=== PATIENT | male | born 1970 | race Caucasian/White ===

== ENCOUNTER 2018-09-01 19:39 | Emergency (ER) | payer SELFPAY ==
[2018-09-01 19:44] VITALS: BP 160/97; PULSE 73; RESP 20; TEMP 36.5; O2SAT 100; BMI 38.7
--- NOTE | 2018-09-01 20:04 | RAD_ITS ---
STUDY: X-RAY CHEST REASON FOR EXAM: Male, 48 years old. Cough, hemoptysis. TECHNIQUE: PA and lateral chest. COMPARISON: None. FINDINGS: The lungs are clear and expanded. There is no demonstrated pleural abnormality. There is mild cardiac enlargement. Normal mediastinum and braxton. Normal visualized pulmonary arteries. Normal visualized aortic arch and descending thoracic aorta. Normal visualized thoracic spine. Normal visualized ribs, clavicles, and shoulders. There is no demonstrated abnormality of the visualized soft tissue structures of the upper abdomen. RAD/Chest PA and Lateral IMPRESSION: No acute process. Electronically Signed: Sharon Vicente MD at 20:44 EST Tel , Service support ,
[2018-09-01 20:22] LABS: Absolute Lymphocyte Count 1.76 X10^3/ul (0.83-4.51); Absolute Neutrophil Count 11.5 X10^3/uL (2.0-7.7); Basophil# 0.05 X10^3/uL; Basophil% 0.3 % (0-1); Eosinophil# 0.41 X10^3/uL; Eosinophils% 2.8 % (0-5); Hematocrit 35.5 % (40-54); Hemoglobin 10.9 g/dl (13.0-16.5); Lymphocyte # 1.76 X10^3/ul (4.0); Lymphocyte % 12.1 % (19-41); Mean Corp Hgb Conc 30.7 g/gl (32-36); Mean Corpuscular Hgb 23.5 pg (27.0-32.0); Mean Corpuscular Volume 76.7 fL (80-94); Mean Platelet Vol. 8.8 fl (6.2-12.0); Monocyte% 5.5 % (0-10); Neutrophil % 78.9 % (47-70); POSITIVE COUNT NO; POSITIVE DIFFERENTIAL NO; POSITIVE MORPHOLOGY NO; Platelet Count 424 K/mm3 (150-450); RBC Distribution Width CV 17.7 % (11.6-14.6); RBC Distribution Width SD 47.7 fl (35.1-43.9); Red Blood Count 4.63 M/mm3 (4.6-6.2); White Blood Count 14.6 K/mm3 (4.4-11.0)
[2018-09-01 20:35] LABS: Anion Gap 7 (5-15); BUN 22 mg/dL (7-18); BUN/Creat Ratio 19.3 RATIO (10-20); Calcium,Total 8.1 mg/dL (8.5-10.1); Chloride 106 mmol/L (98-107); Creatinine, Serum 1.14 mg/dL (0.70-1.30); EST Glomerular Filtration Rate 73 mL/min (>60); Est Glom Filt Rate - Afr Amer 88 mL/min (>60); Glucose 114 mg/dL (74-106); Potassium 4.6 mmol/L (3.5-5.1); Sodium Level 139 mmol/L (136-145)
--- NOTE | 2018-09-01 20:49 | ED.VISSUMM ---
- ER Visit Summary Date of Service: 09/01/18 Chief Complaint: Abdominal pain and cough History of Present Illness: The patient is a 48 M who his primary care physician is in [place]. He reports that he has abdominal pain that began approximately 4 weeks ago. He reports that this is only up when he is moving around and describes it as a cramping pain. He denies any pain while he sitting. No nausea, vomiting, or diarrhea. Patient reports that approximately for the past month he has had a cough is productive of white/green sputum. States that this morning when he woke up he brought up a spot of blood with his sputum. He denies any fever or chills. No chest pain or shortness of breath. Physical Examination: Vitals: Stable. Afebrile. General: Well-nourished and well-developed. Head: Normocephalic atraumatic. HEENT: Serous effusion behind his right TM. Left TM is normal. No tonsillar enlargement or exudate. Neck: Supple, no lymphadenopathy. No JVD. Nontender. Cardiovascular: Regular rate and rhythm. No murmurs. Respiratory: No respiratory distress. Clear to auscultation bilaterally. Abdominal: Soft, nontender, nondistended, normal bowel sounds. No guarding, rebound, or peritoneal signs. Back: Nontender. Extremities: Nontender, no edema. Skin: Normal color, no rash. Neurologic: Alert and oriented ?3. Cranial nerves II through XII are intact. Normal strength and sensation. Psych: Normal affect. Test Results: Chest x-ray is shows mild cardiomegaly. No infiltrate. CBC is more for a white count of 14.6 with an H&H of 10.9 35.5, segmented neutrophils 79 lymphocytes of 12. He does not have an old hemoglobin for comparison. Chem-7 is marked for glucose 114, BUN of 22, calcium of 8.1. Emergency Department Course and Treatment: Patient was treated the dose of Zithromax p.o. He is resting comfortably. Treatment Plan: Patient will be discharged the remainder of his Z-Timothy. Instructed to follow-up with Dr. Mcneil, who is next in line for no doc, in 1 week for another exam. Return to the emergency department for any worsening symptoms. Disposition: To home in improved and stable condition. Impression: 1. URI. 2. Abdominal pain, uncertain cause. 3. Anemia. This note was generated with [employer] dictation software. It may contain incorrect words, spelling, and punctuation that were not noted in review of the chart prior to signing ED Disposition - Plan for ED Patient: Disposition: Home or Assisted Living Chief Complaint: General Illness Instructions: ED Upper Resp Infec Abx Tx Prescriptions: Azithromycin [Zithromax] 250 mg PO DAILY #4 tablet Referrals: Nataliia Mcneil MD [STAFF PHYSICIAN] - 5-7 Days
[2018-09-01] MEDS: Azithromycin 250 MG Tablet 500 MG PO (21:16)
[2018-09-01 21:21] VITALS: BP 153/107; PULSE 107; RESP 15; O2SAT 98
== END 2018-09-01 21:23 | disposition home or self-care (01) ==
LOC: ED 20:27
PROVIDERS: Emergency Provider Emergency Medicine
DX: J06.9 Acute upper respiratory infection, unspecified (principal); R10.9 Unspecified abdominal pain; D64.9 Anemia, unspecified; I10 Essential (primary) hypertension; Z79.899 Other long term (current) drug therapy
CPT/HCPCS: 71046; 80048; 85025; 99284; A4216

== ENCOUNTER 2018-09-12 21:37 | Inpatient (IN) | payer SELFPAY ==
[2018-09-12 21:37] VITALS: BP 107/78; PULSE 119; RESP 32; TEMP 36.8; O2SAT 93; BMI 42.3
--- NOTE | 2018-09-12 21:57 | EKG12_ITS ---
Test Reason : SOB Blood Pressure : / mmHG Vent. Rate : 116 BPM Atrial Rate : 277 BPM P-R Int : 000 ms QRS Dur : 084 ms QT Int : 322 ms P-R-T Axes : 070 061 074 degrees QTc Int : 447 ms Normal sinus rhythm Premature ventricular complexes Abnormal ECG Confirmed by JOHNATHON BURKS, ZIA ([id number]), online content editor DAVE ADKINS ([id number]) on 09/15/2018 3:10:18 PM Referred By: GONSALO Confirmed By:ZIA DIEGO MD
--- NOTE | 2018-09-12 21:58 | RAD_ITS ---
STUDY: X-RAY CHEST REASON FOR EXAM: Male, 48 years old. Cough, congestion, fatigue TECHNIQUE: Single AP portable view of the chest. COMPARISON: 09/01/2018 FINDINGS: The lungs are clear and expanded. There is no demonstrated pleural abnormality. Normal size heart. Normal mediastinum and braxton. Normal visualized pulmonary arteries. Normal visualized aortic arch and descending thoracic aorta. Normal visualized thoracic spine. Normal visualized ribs, clavicles, and shoulders. There is no demonstrated abnormality of the visualized soft tissue structures of the upper abdomen. RAD/Chest PA and Lateral IMPRESSION: No acute pulmonary process, no interval change Electronically Signed: Darryl Brambila MD at 23:00 EST , Service support ,
--- NOTE | 2018-09-12 21:59 | ED.VISSUMM ---
- ER Visit Summary Date of Service: 09/12/18 Chief Complaint: Shortness of breath, abdominal pain, and hemoptysis History of Present Illness: The patient is a 48 M who presents with shortness of breath that has been getting worse over the past week. Patient states he feels fatigued and gets short of breath with any exertion. Patient admits to decreased appetite. Patient also admits to some lower abdominal pain. Patient states his pain is worse with ambulation. Patient admits to some insomnia as well. Patient states he was seen here recently and had an x-ray which did not show any pneumonia. Patient states he was told he had bronchitis. Patient states his breathing feels like it is getting worse. Patient states he is coughing up an occasional bloody sputum. Patient denies any fevers or chills. Physical Examination: Vital signs are stable except for tachycardia of 119 and a respiratory rate of 32. Patient is afebrile. Oral mucosa is pink and moist. Neck is supple. Trachea is midline. There is no JVD noted. Heart was regular rate and rhythm. Lungs showed rales and rhonchi in the right base. There is good respiratory effort noted. Abdomen is soft. Bowel sounds are normal. There is some mild lower abdominal tenderness. There is no rebound or guarding noted. Cranial nerves II through XII are intact. There are no focal motor or sensory deficits noted. The remaining physical exam is within normal limits. Test Results: PA and lateral chest x-ray was obtained. There is a right lower lobe infiltrate. This was interpreted by myself. Radiologist did not feel there is any acute interval change compared to previous x-ray. CBC, comprehensive metabolic profile, and troponin were obtained and are pending. Emergency Department Course and Treatment: Patient was given a DuoNeb aerosol here. Patient was started on Rocephin and Zithromax. Case was discussed with the hospitalist. Patient will be admitted to the hospital. Patient understood and was agreeable with the plan. All questions were answered. Disposition: Admit to hospital Impression: Community-acquired pneumonia This note was generated with [employer] dictation software. It may contain incorrect words, spelling, and punctuation that were not noted in review of the chart prior to signing ED Disposition - Plan for ED Patient: Disposition: Acute Care Hospital [facility] Chief Complaint: Abd Pain Diagnosis: Community acquired pneumonia Referrals: [facility] Doctor,Out of [Primary Care Provider] -
--- NOTE | 2018-09-12 22:02 | ED.DCSUM_ITS ---
- ER Visit Summary Date of Service: 09/12/18 Chief Complaint: Shortness of breath, abdominal pain, and hemoptysis History of Present Illness: The patient is a 48 M who presents with shortness of breath that has been getting worse over the past week. Patient states he feels fatigued and gets short of breath with any exertion. Patient admits to decreased appetite. Patient also admits to some lower abdominal pain. Patient states his pain is worse with ambulation. Patient admits to some insomnia as well. Patient states he was seen here recently and had an x-ray which did not show any pneumonia. Patient states he was told he had bronchitis. Patient states his breathing feels like it is getting worse. Patient states he is coughing up an occasional bloody sputum. Patient denies any fevers or chills. Physical Examination: Vital signs are stable except for tachycardia of 119 and a respiratory rate of 32. Patient is afebrile. Oral mucosa is pink and moist. Neck is supple. Trachea is midline. There is no JVD noted. Heart was regular rate and rhythm. Lungs showed rales and rhonchi in the right base. There is good respiratory effort noted. Abdomen is soft. Bowel sounds are normal. There is some mild lower abdominal tenderness. There is no rebound or guarding noted. Cranial nerves II through XII are intact. There are no focal motor or sensory deficits noted. The remaining physical exam is within normal limits. Test Results: PA and lateral chest x-ray was obtained. There is a right lower lobe infiltrate. This was interpreted by myself. Radiologist did not feel there is any acute interval change compared to previous x-ray. CBC, comprehensive metabolic profile, and troponin were obtained and are pending. Emergency Department Course and Treatment: Patient was given a DuoNeb aerosol here. Patient was started on Rocephin and Zithromax. Case was discussed with the hospitalist. Patient will be admitted to the hospital. Patient understood and was agreeable with the plan. All questions were answered. Disposition: Admit to hospital Impression: Community-acquired pneumonia This note was generated with [employer] dictation software. It may contain incorrect words, spelling, and punctuation that were not noted in review of the chart prior to signing ED Disposition - Plan for ED Patient: Disposition: Acute Care Hospital [facility] [place] Chief Complaint: Abd Pain Diagnosis: Community acquired pneumonia Referrals: [facility] Doctor,Out of [Primary Care Provider] -
[2018-09-12 22:13] VITALS: PULSE 115; RESP 34
[2018-09-12] MEDS: Ipratropium/Albuterol Sulfate 3 ML AMPUL.NEB INHALATION (22:13)
--- NOTE | 2018-09-12 22:18 | ED.RN ---
NO OLD EKGS IN MUSE
[2018-09-12 22:57] VITALS: BP 120/81; PULSE 95; RESP 34; TEMP 36.8; O2SAT 94
[2018-09-12 23:01] VITALS: BP 120/81; PULSE 95; RESP 34; TEMP 37.2
--- NOTE | 2018-09-12 23:07 | ED.RN ---
pt coughed and was seen coughing up clear sputum
--- NOTE | 2018-09-12 23:57 | PCM.HP.STD ---
Problem List (1) Sepsis Status: Acute History of Present Illness Date of Admission: 09/12/18 Chief Complaint: Hemoptysis The patient is a 48 year old M with a significant history of former smoker and hypertension who presents with hemoptysis that started about 11 days ago. Associated with symptoms is shortness of breath; fatigue; chills; hot flashes; paroxysmal nocturnal dyspnea; orthopnea; and lightheadedness. 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 Patient was evaluated at our emergency department about 11 dose ago and was diagnosed with upper URI; abdominal pain and anemia. He was discharged on Zithromax p.o. Patient is anxious and is difficult to take accurate history from him. Past Medical History Medical History: Medical History (Last Updated 09/13/18 @ 01:09 by Mitul Rubin MD) Hypertension I10 Allergies lisinopril Allergy (Verified 09/01/18 19:43) Angioedema Home Medications: Ambulatory Orders Medication Instructions Recorded NK 09/12/18 Surgical History: no surgical history Lives: Alone Smoking Status: Former smoker Alcohol: None - *Family History Maternal Family History: Family History (Last Updated 09/13/18 @ 01:10 by Mitul Rubin MD) Mother Diabetes Father Lung disease Review of Systems Constitutional: Reports: Anorexia, Chills, Malaise, Fatigue. Denies: Fever, Weight Change HEENT: Denies: Head Aches, Sinus Congestion, Sinus Drainage Cardiovascular: Reports: Edema - Bilateral legs. Denies: Chest Pain, Palpitations Respiratory: Reports: Cough, Shortness of Breath, Sputum production Gastrointestinal: Reports: Nausea. Denies: Abdominal Pain, Vomiting Genitourinary: Denies: Dysuria Musculoskeletal: Denies: Joint Pain, Joint Tenderness Skin: Denies: Rash, Wounds Neurological: Denies: Numbness, Tingling, Focal weakness Psychiatric: Reports: Anxiety. Denies: Depression, Homicidal Ideations, Suicidal Ideations Hematologic/ Lymphatic: Denies: Easy Bruising, Easy Bleeding VTE Information - Inpt Only VTE Present on Admission: No VTE Mechan Device Prophylaxis: None VTE Pharm Prophylaxis ordered?: Yes Patient Problems: Active and Suspected Problems Community acquired pneumonia (Acute) Sepsis (Acute) - Physical Exam General: Alert, Oriented x3, Cooperative HEENT: Atraumatic, PERRLA, EOMI, Normocephalic Neck: Supple, No JVD, Negative Carotid Bruits Lungs: Clear to auscultation, Normal air movement, Short of Breath, Tachypneic, Using Accessory Muscles Cardiovascular: No murmurs, Tachycardic Abdomen: Bowel Sounds Present, Soft, Non Tender Extremities: Capillary Refill Less than 3 Seconds, Edema - Bilateral legs and feet Skin: No rashes, No breakdown Musculoskeletal: No Tenderness to Palpation of Joints or Extremities Neurological: Neuro grossly intact Psych/Mental Status: Normal Affect, Appropriate Vital Signs Temp Pulse Resp BP Pulse Ox 98.9 F 95 34 H 120/81 H 94 09/12/18 23:01 09/12/18 23:01 09/12/18 23:01 09/12/18 23:01 09/12/18 22:57 Oxygen Delivery Method Room Air Weight: 122.47 kg Body Mass Index (BMI) 42.3 Laboratory Tests Past 24 Hrs 09/12/18 09/12/18 23:50 23:50 WBC Pending RBC Pending Hgb Pending Hct Pending MCV Pending MCH Pending MCHC Pending RDW Pending RDW Differential Pending Plt Count Pending Neut % (Auto) Pending Absolute Neuts (auto) Pending Total Counted Pending Sodium Pending Potassium Pending Chloride Pending Carbon Dioxide Pending Anion Gap Pending BUN Pending Creatinine Pending Est GFR (MDRD) Af Amer Pending Est GFR (MDRD) Non-Af Pending BUN/Creatinine Ratio Pending Glucose Pending Calcium Pending Troponin I Pending Assessment/Plan All Active Problems Community acquired pneumonia (Acute) Sepsis (Acute) The patient is a 48 year old M with a significant history of former smoker and hypertension who presents with hemoptysis shortness of breath; fatigue; chills; hot flashes; paroxysmal nocturnal dyspnea; orthopnea; and lightheadedness after being discharged from the hospital 11 days ago he was given a Z-Timothy to treat your URI; and meeting SIRS criteria with likely source of infection as pneumonia consistent with sepsis secondary to community-acquired pneumonia. Secondary community acquired pneumonia. X-ray as interpreted from the emergency department doctor shows lower third opacity in the anterior view and in lateral view. I agree with the interpretation. Patient with Sirs criteria: Tachycardia (heart rate 118-119); tachypnea (respiratory rate 29-34) With radiographic evidence of infiltrate and Sirs criteria patient was diagnosed with sepsis secondary to community-acquired pneumonia. Lactic acid ordered Oxygen as needed Blood culture ordered Respiratory Gram stain and culture ordered Antibiotics: Ceftriaxone and azithromycin was ordered from the emergency department. However there was difficulty in placing a peripheral line with ultrasound at emergency department. Emergency department doctor will talk to patient and likely start a central line. We will continue ceftriaxone and azithromycin. We will hold off IV hydration as patient is not hemodynamically compromised and does not appear to be in severe sepsis at this point. He reports bilateral leg swelling, rule out congestive heart failure at this time. DuoNeb scheduled. Albuterol as needed Legionella antigen screen and Strep antigen ordered Prednisone x1 due to severity of his condition. Evaluate for further need of steroids. Due to his history of driving a van and a severe tachycardia and shortness of breath will order a CTPA to rule out PE. Due to orthopnea, PND and bilateral leg swelling will order echocardiogram to rule out heart failure. Hypertension On admission blood pressure was not within goal. Patient reports that in the past he was taking lisinopril but he had elevated lisinopril for which lisinopril was discontinued. Patient tachycardia we will not order hydralazine at this time. Patient with dyspnea will order beta-blockers at this time. Clonidine as needed ordered. Anxiety Patient's appears very anxious. Was given lorazepam at emergency department. Clinical monitoring. If patient continued to be anxious consider further lorazepam. DVT prophylaxis Subcutaneous Lovenox. Code Visit Inpatient E&M: 53338 Init Hosp L3
[2018-09-13] VITALS (41 sets, daily range): BP systolic 110–195; BP diastolic 69–110; PULSE 75–121; RESP 22–44; TEMP 36.3–37.7; O2SAT 92–100; BMI 42.0; BMI 42.1
[2018-09-13 00:13] LABS: Anion Gap 11 (5-15); BUN 29 mg/dL (7-18); BUN/Creat Ratio 23.6 RATIO (10-20); Calcium,Total 8.1 mg/dL (8.5-10.1); Chloride 102 mmol/L (98-107); Creatinine, Serum 1.23 mg/dL (0.70-1.30); EST Glomerular Filtration Rate 67 mL/min (>60); Est Glom Filt Rate - Afr Amer 81 mL/min (>60); Estimated Creatinine Clearance 68.67 ml/min; Glucose 111 mg/dL (74-106); Potassium 5.3 mmol/L (3.5-5.1); Sodium Level 135 mmol/L (136-145)
[2018-09-13] MEDS: LORazepam 1 MG Tablet PO (00:32)
--- NOTE | 2018-09-13 00:53 | ECHOD_ITS ---
Reason For Study: Dyspnea/SOB Procedure This was a 2D Doppler, Color Flow transthoracic echocardiogram. Exam performed portable in patient room. Left Ventricle Moderately dilated left ventricle. Severe global left ventricular systolic dysfunction. The estimated ejection fraction is 15 %. Diastolic function is indeterminate. [place] : Akinetic. Right Ventricle Normal RV size. Normal systolic function. Atria The left atrium is severely enlarged. Normal right atrium. Mitral Valve Normal mitral valve. Tricuspid Valve Normal tricuspid valve. Mild to moderate (1-2+) tricuspid valve insufficiency. Pulmonary artery systolic pressure is 52 mmHg. Moderate pulmonary hypertension. Aortic Valve The aortic valve is not well visualized. Pulmonic Valve The pulmonic valve is not well visualized. Great Vessels Normal aortic root. The pulmonary artery is normal size. Normal inferior vena cava. Pericardium/Pleural No pericardial effusion. MMode/2D Measurements & Calculations LVIDd: 5.9 cm IVSd: 1.5 cm Ao root diam: 3.6 cm LVIDs: 5.1 cm LVPWd: 1.3 cm LA dimension: 5.3 cm FS: 13.2 % LAV(MOD-bp): 81.1 ml LA A4 area: 27.4 cm2 LAV(MOD-bp) Indexed: 35.4 ml/m2 LAV(MOD-sp2): 63.2 ml LAV(MOD-sp4): 93.4 ml Doppler Measurements & Calculations MV E max layla: 76.8 cm/sec Ao V2 max: 105.2 cm/sec LV V1 max: 81.7 cm/sec Ao max P.4 mmHg LV V1 max P.7 mmHg MR max layla: 480.1 cm/sec PA V2 max: 71.3 cm/sec TR max layla: 343.4 cm/sec MR max P.2 mmHg TR max P.2 mmHg MR mean layla: 392.4 cm/sec MR mean P.2 mmHg MR VTI: 140.3 cm Interpretation Summary Moderately dilated left ventricle. Severe global left ventricular systolic dysfunction. The estimated ejection fraction is 15 %. Diastolic function is indeterminate. Pulmonary artery systolic pressure is 52 mmHg. Moderate pulmonary hypertension. Large thrombus measuring 3.1cm by 1.5cm at apex. Ordering Physician: Mitul Rubin Performed By: Chato Agee RCS
--- NOTE | 2018-09-13 00:53 | CT_ITS ---
STUDY: CTA CHEST REASON FOR EXAM: Male, 48 years old. Shortness of breath. Cough with hemoptysis. RADIATION DOSAGE (If Supplied By Facility): CTDIvol = ( 27.53 ) mGy, DLP = ( 737.42 ) mGycm TECHNIQUE: The examination was performed with the intravenous administration of 100ML ml of Isovue 370 contrast material. Post-processing of the angiographic images was performed, with multiplanar reformation, but without 3D reconstruction. Individualized dose optimization techniques were used for this CT. COMPARISON: Chest x-ray 09/12/2018. FINDINGS: Normal enhancement of the main pulmonary artery and right and left pulmonary arteries. Normal enhancement of the bilateral peripheral pulmonary arteries. There is a large pulmonary embolism in the right inferior pulmonary artery extending into right middle lobe and right lower lobe pulmonary arterial branches, with substantial coronary arterial occlusion in the right lower lobe. There are smaller pulmonary emboli in the left lower lobe and bilateral upper lobes. There is mild reflux of contrast enhanced blood into the inferior vena cava, with minimal extension into hepatic veins, suggesting that there is at least mild right ventricular strain. Normal thoracic aorta and visualized great vessels. There is no demonstrated aortic dissection. The heart is mildly enlarged. There are coronary artery calcifications. There is no demonstrated pericardial effusion. There are mildly enlarged subcarinal mediastinal lymph nodes and right hilar lymph nodes. Normal visualized trachea and bronchi. The lungs are generally well expanded. There is a dense pulmonary airspace infiltrate in the right lower lobe. Given the presence of large pulmonary embolism within the right lower lobe, this may represent infarction. Pneumonia is not excluded, but is thought to be less likely. There are smaller areas of atelectasis and/or infiltration in the left lower lobe and right middle lobe. There is a calcified granuloma in the right upper lobe. Normal pleura. Normal chest wall structures. There are degenerative changes of thoracic spine. There is mild to moderate ascites within the visualized upper abdomen. CT/Chest WITH Contrast IMPRESSION: Pulmonary emboli in bilateral lower lobes, right middle lobe, and bilateral upper lobes. Largest embolus is in the right inferior pulmonary artery with associated occlusion of right lower lobe pulmonary arterial branches. There is evidence for least mild right ventricular strain. Right lower lobe pulmonary consolidation, suspicious for pulmonary infarction, or less likely pneumonia. Cardiomegaly. Coronary artery atherosclerosis. Mild mediastinal and right hilar lymphadenopathy. Old granulomatous disease. Ascites within visualized upper abdomen. N.B. : The above information has been verbally conveyed by Cem Jefferson MD to BRANT SIMS MD, on 09/13/2018 03:00:13 (ET). Electronically Signed: Cem Jefferson MD at 2:13 EST , Service support ,
[2018-09-13] MEDS: Ceftriaxone 1 GM/50 ML BAG IV (00:54)
[2018-09-13 01:03] LABS: Absolute Lymphocyte Count 1.53 X10^3/ul (0.83-4.51); Basophil# 0.02 X10^3/uL; Basophil% 0.1 % (0-1); Hematocrit 33.4 % (40-54); Hemoglobin 10.2 g/dl (13.0-16.5); Lymphocyte # 1.53 X10^3/ul (4.0); Lymphocyte % 7.2 % (19-41); Mean Corp Hgb Conc 30.5 g/gl (32-36); Mean Corpuscular Hgb 22.5 pg (27.0-32.0); Mean Corpuscular Volume 73.6 fL (80-94); Mean Platelet Vol. 9.2 fl (6.2-12.0); Monocyte# 1.56 X10^3/uL; Monocyte% 7.4 % (0-10); Neutrophil # 17.99 X10^3/uL (2.7-7.7); Neutrophil % 84.8 % (47-70); Platelet Count 353 K/mm3 (150-450); RBC Distribution Width CV 17.5 % (11.6-14.6); RBC Distribution Width SD 47.2 fl (35.1-43.9); Red Blood Count 4.54 M/mm3 (4.6-6.2); White Blood Count 21.2 K/mm3 (4.4-11.0)
[2018-09-13 01:07] LABS: Absolute Nucleated RBC Count 0.12 10^3/uL (0-5); Differential Indicated SCAN CRITERIA MET; NRBC Flagged by Analyzer 0.6 % (0-5); POSITIVE COUNT NO; POSITIVE DIFFERENTIAL YES; POSITIVE MORPHOLOGY YES
[2018-09-13 01:32] LABS: Lactic Acid 2.3 mmol/L (0.4-2.0)
[2018-09-13] MEDS: predniSONE 20 MG Tablet 40 MG PO (02:27)
--- NOTE | 2018-09-13 03:04 | VDLE_ITS ---
Reason For Study: PULM EMB RIGHT LEFT GSV is normal. GSV is normal. CFV is compressible, spontaneous, phasic, CFV is compressible, spontaneous, phasic, competent and demonstrates normal competent, and demonstrates normal augmentation. augmentation. FV is compressible, spontaneous, phasic, FV is compressible, spontaneous, phasic, competent and demonstrates normal competent and demonstrates normal augmentation. augmentation. Rt POP V is DILATED and partially POP V is compressible, spontaneous, phasic, compressible with intraluminal echoes and competent and demonstrates normal partial color flow doppler. augmentation. RT T/P Trunk is compressible. T/P Trunk is compressible. RT Gastroc V are DILATED and NONCOMPRESSIBLE. PTV is compressible. RT PTV is compressible. LT PerV is compressible. RT PeroV appear DILATED and NONCOMPRESSIBLE and do not fill with color. Calf Veins were difficult to visualize due to edema. Procedure Exam performed portable in patient room. The study was technically difficult. A preliminary report was called and/or faxed to PCU. Interpretation Summary Acute deep vein thrombosis is noted in the right popliteal vein. Acute deep vein thrombosis is noted in the right gastrocnemius vein. Acute deep vein thrombosis is noted in the right peroneal vein. The remainder of the right lower extremity deep venous system is patent and compressible. The right common femoral vein and femoral vein are competent. Deep veins of the left lower extremity are patent and compressible segmentally. There is no evidence of left lower extremity deep vein thrombosis. Valvular competence appears intact within the proximal deep venous system on the left . The greater saphenous veins appear bilaterally patent and compressible segmentally. Ordering Physician: Mtiul Rubin Performed By: Adriana Wharton, ANGELCS, RVT
--- NOTE | 2018-09-13 03:06 | EKG12_ITS ---
Test Reason : Blood Pressure : / mmHG Vent. Rate : 120 BPM Atrial Rate : 120 BPM P-R Int : 166 ms QRS Dur : 080 ms QT Int : 324 ms P-R-T Axes : 053 033 064 degrees QTc Int : 457 ms Sinus tachycardia with occasional Premature ventricular complexes Nonspecific T wave abnormality Abnormal ECG When compared with ECG of 12-SEP-2018 22:20, MANUAL COMPARISON REQUIRED, DATA IS UNCONFIRMED Confirmed by JOHNATHON BURKS, ZIA ([id number]), society editor DAVE ADKINS ([id number]) on 09/17/2018 2:17:09 PM Referred By: LEVI Confirmed By:ZIA DIEGO MD
[2018-09-13 04:04] LABS: Absolute Lymphocyte Count 1.44 X10^3/ul (0.83-4.51); Absolute Neutrophil Count 17.1 X10^3/uL (2.0-7.7); Basophil# 0.01 X10^3/uL; Basophil% 0.1 % (0-1); Eosinophil# 0.01 X10^3/uL; Eosinophils% 0.1 % (0-5); Hematocrit 31.7 % (40-54); Hemoglobin 9.7 g/dl (13.0-16.5); Lymphocyte # 1.44 X10^3/ul (4.0); Lymphocyte % 7.3 % (19-41); Mean Corp Hgb Conc 30.6 g/gl (32-36); Mean Corpuscular Hgb 22.6 pg (27.0-32.0); Mean Corpuscular Volume 73.7 fL (80-94); Mean Platelet Vol. 8.8 fl (6.2-12.0); Monocyte# 0.99 X10^3/uL; Neutrophil # 17.14 X10^3/uL (2.7-7.7); Neutrophil % 87.2 % (47-70); Platelet Count 330 K/mm3 (150-450); RBC Distribution Width CV 17.4 % (11.6-14.6); RBC Distribution Width SD 46.7 fl (35.1-43.9); White Blood Count 19.7 K/mm3 (4.4-11.0)
[2018-09-13 04:05] LABS: Differential Indicated SCAN CRITERIA MET; POSITIVE COUNT NO; POSITIVE DIFFERENTIAL NO; POSITIVE MORPHOLOGY YES
[2018-09-13 04:09] LABS: Anion Gap 12 (5-15); BUN 30 mg/dL (7-18); BUN/Creat Ratio 22.4 RATIO (10-20); Calcium,Total 7.9 mg/dL (8.5-10.1); Chloride 102 mmol/L (98-107); Creatinine, Serum 1.34 mg/dL (0.70-1.30); EST Glomerular Filtration Rate 61 mL/min (>60); Est Glom Filt Rate - Afr Amer 73 mL/min (>60); Estimated Creatinine Clearance 65.22 ml/min; Glucose 138 mg/dL (74-106); Sodium Level 136 mmol/L (136-145)
[2018-09-13] MEDS: Heparin Injection (Vial) 5,000 UNIT/ML VIAL 9500 UNIT IV (04:10)
[2018-09-13] MEDS: HEPARIN/D5w 25,000 UNITS 25,000 UNITS/250 ML IV.SOLN. 16 UNITS IV ×2 (04:11→18:31)
[2018-09-13 04:31] LABS: Anisocytosis 1+; Differential Comment SCAN; Hypochromasia 1+; Microcytosis 1+; Polychromasia 1+
[2018-09-13 04:45] LABS: Magnesium 2.4 mg/dL (1.6-2.6)
[2018-09-13 04:55] LABS: Reflex Lactate? Y
[2018-09-13 06:00] LABS: Lactic Acid 3.3 mmol/L (0.4-2.0)
[2018-09-13] MEDS: 0.9% Normal Saline 1,000 ML 75 ML IV (06:44)
[2018-09-13] MEDS: Ipratropium/Albuterol Sulfate 3 ML AMPUL.NEB INHALATION ×3 (07:12→20:38)
--- NOTE | 2018-09-13 07:16 | CON.PCM_ITS ---
Reason for Consult Date of Consultation: 09/13/18 Reason for Consultation: Submassive pulmonary embolism History of Present Illness: The patient is a 48-year-old male, with a history as outlined below, who presented to the emergency department on September 12 with complaints of progressive dyspnea, abdominal pain and hemoptysis. The patient reports having been evaluated in the emergency department for similar complaints on September 01. The presumptive diagnosis at the time of his ED workup was that for a URI, for which the patient was treated with a Z-Timothy. The patient denies a smoking history. He additionally denies ever having been diagnosed with a lower extremity clot or PE previously. He does report recent immobility but denies a personal or family history of hypercoagulable state. Upon arrival to the emergency department, the patient was noted to be afebrile, tachycardic and tachypneic. Laboratory evaluation revealed elevated white blood cell count to 20,000. There was evidence of microcytic anemia. Chemistry profile revealed a mildly elevated potassium to 5.3. Serum lactate was mildly elevated to 2.3. Troponin was elevated to 0.087. BNP was elevated to 1621. A CTA chest was obtained which revealed a large pulmonary embolism in the right inferior pulmonary artery extending into the right middle lobe and right lower lobe pulmonary arterial branches. Smaller pulmonary emboli were noted in the left lower lobe and bilateral upper lobes. There was radiographic evidence of possible right ventricular strain along with a dense pulmonary airspace infiltrate in the right lower lobe, likely suggestive of pulmonary infarction. The patient received supplemental IV fluids and was started on antibiotics. In addition, he was initiated on a heparin drip and subsequently admitted to the medical surgical floor. Overnight, the patient remained tachypneic with intermittent episodes of hemoptysis. Past Medical History Medical History: Medical History (Last Updated 09/13/18 @ 01:09 by Mitul Sims MD) Hypertension I10 Allergies lisinopril Allergy (Verified 09/01/18 19:43) Angioedema Home Medications: Ambulatory Orders Medication Instructions Recorded NK 09/12/18 Surgical History: no surgical history Lives: Alone Smoking Status: Former smoker Alcohol: None - *Family History Maternal Family History: Family History (Last Updated 09/13/18 @ 01:10 by Mitul Sims MD) Mother Diabetes Father Lung disease Review of Systems Constitutional: Reports: Weakness. Denies: Chills, Fever Eyes: Denies: Blurred vision, Double vision HEENT: Denies: Head Aches, Sinus Congestion, Sinus Drainage Cardiovascular: Reports: Edema. Denies: Chest Pain, Palpitations Respiratory: Reports: Cough, Hemoptysis, Shortness of Breath Gastrointestinal: Reports: Abdominal Pain Genitourinary: Denies: Dysuria Musculoskeletal: Denies: Joint Pain, Joint Tenderness Skin: Denies: Rash, Wounds Neurological: Denies: Numbness, Tingling, Focal weakness Psychiatric: Denies: Anxiety, Depression, Homicidal Ideations, Suicidal Ideations Hematologic/ Lymphatic: Reports: Anemia Patient Problems: Active and Suspected Problems (Last Updated 09/13/18 @ 01:09 by Mitul Sims MD) Community acquired pneumonia (Acute) Sepsis (Acute) Objective: The patient's most recent lab work, culture data and imaging studies have all been personally reviewed. Surface echocardiogram completed on September 13 revealed severe global LV systolic dysfunction with an ejection fraction of 15%. Normal RV size and function was noted. Pulmonary artery systolic pressure was estimated to be 52 mmHg. - Physical Exam General: Alert, Cooperative, - HEENT: Atraumatic, PERRLA, Normocephalic Oral: No Gingival or Mucosal Lesions/ Ulcerations Neck: Supple, No Nodes, Trachea Midline Lungs: No rhonchi, No wheeze, No rales, Diminished, Short of Breath, Tachypneic Cardiovascular: Normal S1, Normal S2, No murmurs, Tachycardic Abdomen: Bowel Sounds Present, Soft, Non Tender, Non-Distended Extremities: No clubbing, No cyanosis, Edema Skin: No breakdown Musculoskeletal: No Tenderness to Palpation of Joints or Extremities, No Muscle Wasting Lymphatic: No Cervical, Supraclavicular, or Inguinal Adenopathy Neurological: Cranial nerves II-XII grossly intact, Neuro grossly intact Psych/Mental Status: Anxious Vital Signs Temp Pulse Resp BP Pulse Ox 37.7 C H 115 H 32 H 121/84 H 95 09/13/18 06:57 09/13/18 06:57 09/13/18 06:57 09/13/18 06:57 09/13/18 06:57 Oxygen Flow Rate (L/min) 4 Oxygen Delivery Method Nasal Cannula Weight: 276 lb 10.882 oz Body Mass Index (BMI) 42.0 Intake and Output for Last 24 Hours 09/11/18 09/12/18 09/13/18 23:59 23:59 23:59 Intake Total 1039.1 / 1039.1 Output Total 150 / 150 Balance 889.1 / 889.1 Microbiology Past 72 Hours 09/13/18 03:30 Legionella Antigen - Final Urine, Clean Catch 09/13/18 03:30 Streptococcus pneumoniae Antigen (M - Final Urine, Clean Catch Laboratory Tests Past 24 Hrs 09/12/18 09/12/18 09/13/18 23:50 23:50 00:45 WBC Cancelled 21.2 H Corrected WBC Cancelled RBC Cancelled 4.54 L Hgb Cancelled 10.2 L Hct Cancelled 33.4 L MCV Cancelled 73.6 L MCH Cancelled 22.5 L MCHC Cancelled 30.5 L RDW Cancelled 17.5 H RDW Differential Cancelled 47.2 H Plt Count Cancelled 353 MPV Cancelled 9.2 Immature Gran % (Auto) Cancelled 0.500 Neut % (Auto) Cancelled 84.8 H Lymph % (Auto) Cancelled 7.2 L [place] % (Auto) Cancelled 7.4 Eos % (Auto) Cancelled 0.0 Baso % (Auto) Cancelled 0.1 Immature Gran # (Auto) Cancelled Absolute Neuts (auto) Cancelled 18.0 H Absolute Lymphs (auto) Cancelled 1.53 Absolute Monos (auto) Cancelled Total Counted Cancelled Not Reportable Neutrophils % (Manual) Cancelled Band Neutrophils % Cancelled Lymphocytes % (Manual) Cancelled Monocytes % (Manual) Cancelled Eosinophils % (Manual) Cancelled Basophils % (Manual) Cancelled Metamyelocytes % Cancelled Myelocytes % Cancelled Promyelocytes % Cancelled Blast Cells % Cancelled Plasma Cell % (Manual) Cancelled Other Cells % Cancelled Nucleated RBC % 0.6 Lymphocytes # Cancelled Nucleated RBCs/100 WBC Cancelled Differential Comment Cancelled Diff Path Review Cancelled May foll Hypersegmented Neuts Cancelled Atypical Lymphocytes Cancelled Reactive Lymphocytes Cancelled Smudge Cells Cancelled Eosinophilia # Cancelled Basophilia # Cancelled Toxic Granulation Cancelled Dohle Bodies Cancelled Miguel Angel Rods Cancelled Platelet Estimate Cancelled Plt Morphology Comment Cancelled RBC Morphology Cancelled Polychromasia Cancelled Hypochromasia Cancelled Poikilocytosis Cancelled Basophilic Stippling Cancelled Anisocytosis Cancelled Microcytosis Cancelled Macrocytosis Cancelled Spherocytes Cancelled Sickle Cells Cancelled Target Cells Cancelled Tear Drop Cells Cancelled Ovalocytes Cancelled Stomatocytes Cancelled [place] Bodies Cancelled Alessandra Cells Cancelled Bite Cells Cancelled Acanthocytes (Spur) Cancelled Rouleaux Cancelled Schistocytes Cancelled Absolute Retic 0.12 PT INR APTT Sodium 135 L Potassium 5.3 H Chloride 102 Carbon Dioxide 22.0 Anion Gap 11 BUN 29 H Creatinine 1.23 Estim Creat Clear Calc 68.67 Est GFR (MDRD) Af Amer 81 Est GFR (MDRD) Non-Af 67 BUN/Creatinine Ratio 23.6 H Glucose 111 H Lactic Acid Calcium 8.1 L Magnesium Troponin I 0.087 H B-Natriuretic Peptide Mycoplasma pneumon IgG Mycoplasma pneumon IgM 09/13/18 09/13/18 09/13/18 00:45 02:15 03:46 WBC 19.7 H Corrected WBC RBC 4.30 L Hgb 9.7 L Hct 31.7 L MCV 73.7 L MCH 22.6 L MCHC 30.6 L RDW 17.4 H RDW Differential 46.7 H Plt Count 330 MPV 8.8 Immature Gran % (Auto) 0.300 Neut % (Auto) 87.2 H Lymph % (Auto) 7.3 L [place] % (Auto) 5.0 Eos % (Auto) 0.1 Baso % (Auto) 0.1 Immature Gran # (Auto) Absolute Neuts (auto) 17.1 H Absolute Lymphs (auto) 1.44 Absolute Monos (auto) Total Counted Not Reportable Neutrophils % (Manual) Band Neutrophils % Lymphocytes % (Manual) Monocytes % (Manual) Eosinophils % (Manual) Basophils % (Manual) Metamyelocytes % Myelocytes % Promyelocytes % Blast Cells % Plasma Cell % (Manual) Other Cells % Nucleated RBC % Lymphocytes # Nucleated RBCs/100 WBC Differential Comment SCAN Diff Path Review Hypersegmented Neuts Atypical Lymphocytes Reactive Lymphocytes Smudge Cells Eosinophilia # Basophilia # Toxic Granulation Dohle Bodies Miguel Angel Rods Platelet Estimate Plt Morphology Comment RBC Morphology Polychromasia 1+ Hypochromasia 1+ Poikilocytosis Basophilic Stippling Anisocytosis 1+ Microcytosis 1+ Macrocytosis Spherocytes Sickle Cells Target Cells Tear Drop Cells Ovalocytes Stomatocytes [place] Bodies [place] Cells Bite Cells Acanthocytes (Spur) Rouleaux Schistocytes Absolute Retic PT INR APTT Sodium Potassium Chloride Carbon Dioxide Anion Gap BUN Creatinine Estim Creat Clear Calc Est GFR (MDRD) Af Amer Est GFR (MDRD) Non-Af BUN/Creatinine Ratio Glucose Lactic Acid 2.3 H Calcium Magnesium Troponin I B-Natriuretic Peptide Mycoplasma pneumon IgG Pending Mycoplasma pneumon IgM Pending 09/13/18 09/13/18 09/13/18 03:46 03:46 03:46 WBC Corrected WBC RBC Hgb Hct MCV MCH MCHC RDW RDW Differential Plt Count MPV Immature Gran % (Auto) Neut % (Auto) Lymph % (Auto) [place] % (Auto) Eos % (Auto) Baso % (Auto) Immature Gran # (Auto) Absolute Neuts (auto) Absolute Lymphs (auto) Absolute Monos (auto) Total Counted Neutrophils % (Manual) Band Neutrophils % Lymphocytes % (Manual) Monocytes % (Manual) Eosinophils % (Manual) Basophils % (Manual) Metamyelocytes % Myelocytes % Promyelocytes % Blast Cells % Plasma Cell % (Manual) Other Cells % Nucleated RBC % Lymphocytes # Nucleated RBCs/100 WBC Differential Comment Diff Path Review Hypersegmented Neuts Atypical Lymphocytes Reactive Lymphocytes Smudge Cells Eosinophilia # Basophilia # Toxic Granulation Dohle Bodies Miguel Angel Rods Platelet Estimate Plt Morphology Comment RBC Morphology Polychromasia Hypochromasia Poikilocytosis Basophilic Stippling Anisocytosis Microcytosis Macrocytosis Spherocytes Sickle Cells Target Cells Tear Drop Cells Ovalocytes Stomatocytes [place] Bodies [place] Cells Bite Cells Acanthocytes (Spur) Rouleaux Schistocytes Absolute Retic PT 23.0 H INR 2.0 APTT 32.0 Sodium 136 Potassium 5.0 Chloride 102 Carbon Dioxide 22.0 Anion Gap 12 BUN 30 H Creatinine 1.34 H Estim Creat Clear Calc 65.22 Est GFR (MDRD) Af Amer 73 Est GFR (MDRD) Non-Af 61 BUN/Creatinine Ratio 22.4 H Glucose 138 H Lactic Acid Calcium 7.9 L Magnesium 2.4 Troponin I B-Natriuretic Peptide Mycoplasma pneumon IgG Mycoplasma pneumon IgM 09/13/18 09/13/18 03:46 05:18 WBC Corrected WBC RBC Hgb Hct MCV MCH MCHC RDW RDW Differential Plt Count MPV Immature Gran % (Auto) Neut % (Auto) Lymph % (Auto) [place] % (Auto) Eos % (Auto) Baso % (Auto) Immature Gran # (Auto) Absolute Neuts (auto) Absolute Lymphs (auto) Absolute Monos (auto) Total Counted Neutrophils % (Manual) Band Neutrophils % Lymphocytes % (Manual) Monocytes % (Manual) Eosinophils % (Manual) Basophils % (Manual) Metamyelocytes % Myelocytes % Promyelocytes % Blast Cells % Plasma Cell % (Manual) Other Cells % Nucleated RBC % Lymphocytes # Nucleated RBCs/100 WBC Differential Comment Diff Path Review Hypersegmented Neuts Atypical Lymphocytes Reactive Lymphocytes Smudge Cells Eosinophilia # Basophilia # Toxic Granulation Dohle Bodies Miguel Angel Rods Platelet Estimate Plt Morphology Comment RBC Morphology Polychromasia Hypochromasia Poikilocytosis Basophilic Stippling Anisocytosis Microcytosis Macrocytosis Spherocytes Sickle Cells Target Cells Tear Drop Cells Ovalocytes Stomatocytes [place] Bodies [place] Cells Bite Cells Acanthocytes (Spur) Rouleaux Schistocytes Absolute Retic PT INR APTT Sodium Potassium Chloride Carbon Dioxide Anion Gap BUN Creatinine Estim Creat Clear Calc Est GFR (MDRD) Af Amer Est GFR (MDRD) Non-Af BUN/Creatinine Ratio Glucose Lactic Acid 3.3 H Calcium Magnesium Troponin I B-Natriuretic Peptide Pending Mycoplasma pneumon IgG Mycoplasma pneumon IgM Clinical Impression(s) from Imaging Studies Chest X-Ray 09/12/18 21:58 IMPRESSION: No acute pulmonary process, no interval change Electronically Signed: Darryl Brambila MD at 23:00 EST , Service support , Chest CT 09/13/18 00:53 IMPRESSION: Pulmonary emboli in bilateral lower lobes, right middle lobe, and bilateral upper lobes. Largest embolus is in the right inferior pulmonary artery with associated occlusion of right lower lobe pulmonary arterial branches. There is evidence for least mild right ventricular strain. Right lower lobe pulmonary consolidation, suspicious for pulmonary infarction, or less likely pneumonia. Cardiomegaly. Coronary artery atherosclerosis. Mild mediastinal and right hilar lymphadenopathy. Old granulomatous disease. Ascites within visualized upper abdomen. N.B. : The above information has been verbally conveyed by Cem Jefferson MD to MITUL SIMS MD, on 09/13/2018 03:00:13 (ET). Electronically Signed: Cem Jefferson MD at 2:13 EST , Service support , Assessment/Plan All Active Problems (Last Updated 09/13/18 @ 01:09 by Mitul Sims MD) Community acquired pneumonia (Acute) Sepsis (Acute) RECOMMENDATIONS: 1. Transfer patient to PCU. No indication for ICU level of care at the current time. 2. Obtain sputum culture and respiratory viral panel. 3. Continue antibiotics for 24 hours. Will discontinue tomorrow if no infectious etiology is identified. 4. Continue heparin drip for now. 5. Wean supplemental oxygen to maintain saturations at or above 90%. IMPRESSIONS: 1. Acute hypoxic respiratory insufficiency secondary to submassive pulmonary embolism The patient initially presented to the hospital with shortness of breath and hemoptysis. Subsequent workup did reveal evidence of a submassive pulmonary embolism with biochemical evidence of heart strain, indicated by elevated BNP and troponins. At the current time, the patient has been anticoagulated on a heparin drip, which I would plan to continue. Pending stability, he can eventually be transitioned over to an oral anticoagulation regimen. Unless the patient develops a bleeding complication, I would plan for long-term anticoagulation. Continue to wean supplemental oxygen as tolerated. Ech ocardiogram did not reveal significant RV strain. 2. Hemoptysis with concern for pulmonary infarction Clinical concern for pulmonary infarction is the etiology for the patient's hemoptysis. Continue current supportive measures as noted above. 3. Elevated troponin/newly identified systolic heart failure The patient's echocardiogram did reveal evidence of newly identified systolic heart failure with severe global LV dysfunction and an ejection fraction of 15%. There was also evidence of pulmonary hypertension with a pulmonary artery systo lic pressure estimated to be 52 mmHg. However, the RV was normal in size and function. Continue to trend troponins. Obtain cardiology consultation. This note was generated with [employer] software. It may contain incorrect words, spelling, and punctuation that were not noted in checking the note before signing. Code Visit Inpatient E&M: 96883 Init Hosp L3
[2018-09-13 08:54] LABS: BNP,B-Type NATRIURETIC PEPTIDE 1621.3 pg/mL (0-100)
--- NOTE | 2018-09-13 09:10 | PCM.PN.HOSP ---
Patient Problems: Active and Suspected Problems (Last Updated 09/13/18 @ 01:09 by Mitul Sims MD) Community acquired pneumonia (Acute) Sepsis (Acute) Subjective: Patient is a 48-year-old gentleman who presented with progressive shortness of breath imaging studies on admission demonstrated pulmonary emboli in bilateral lower lobes, right middle lobe, and bilateral upper lobes. Largest embolus is in the right inferior pulmonary artery with associated occlusion of right lower lobe pulmonary arterial branches. There is evidence for least mild right ventricular strain. Right lower lobe pulmonary consolidation, suspicious for pulmonary infarction patient started on heparin and admitted for subsequent inpatient management Objective: GENERAL: Somewhat dyspneic at rest HEENT: Atraumatic; moist oral mucosa EYES; Anicteric, Normal Conjunctiva NECK; supple, normal thyroid, no distended JVD. RESPIRATORY: Diminished to auscultation bilaterally, CARDIOVASCULAR: Regular S1 S2, no audible murmurs GI: Distended non-tender, normoactive bowel sounds, : No Renal angle tenderness; EXTREMITIES: Plus bipedal edema, no clubbing, no cyanosis. MUSCULOSKELETAL: No Joint Tenderness; no muscle waisting NEURO: Awake; no lateralizing signs. SKIN: No Rash PSYCH; Normal affect Vitals/I&O's: Vital Signs Temp Pulse Resp BP Pulse Ox 98.8 F 115 H 30 H 132/84 H 95 09/13/18 09:09 09/13/18 09:09 09/13/18 09:09 09/13/18 09:09 09/13/18 09:09 Oxygen Flow Rate (L/min) 4 Oxygen Delivery Method Nasal Cannula Weight: 125.5 kg Body Mass Index (BMI) 42.0 Intake and Output for Last 24 Hours 09/11/18 09/12/18 09/13/18 23:59 23:59 23:59 Intake Total 1039.1 / 1039.1 Output Total 150 / 150 Balance 889.1 / 889.1 Microbiology Past 72 Hours 09/13/18 03:30 Urine, Clean Catch Legionella Antigen - Final 09/13/18 03:30 Urine, Clean Catch Streptococcus pneumoniae Antigen (M - Final Laboratory Results 09/12/18 23:50: WBC Cancelled, Corrected WBC Cancelled, RBC Cancelled, Hgb Cancelled, Hct Cancelled, MCV Cancelled, MCH Cancelled, MCHC Cancelled, RDW Cancelled, RDW Differential Cancelled, Plt Count Cancelled, MPV Cancelled, Immature Gran % (Auto) Cancelled, Neut % (Auto) Cancelled, Lymph % (Auto) Cancelled, [place] % (Auto) Cancelled, Eos % (Auto) Cancelled, Baso % (Auto) Cancelled, Immature Gran # (Auto) Cancelled, Absolute Neuts (auto) Cancelled, Absolute Lymphs (auto) Cancelled, Absolute Monos (auto) Cancelled, Total Counted Cancelled, Neutrophils % (Manual) Cancelled, Band Neutrophils % Cancelled, Lymphocytes % (Manual) Cancelled, Monocytes % (Manual) Cancelled, Eosinophils % (Manual) Cancelled, Basophils % (Manual) Cancelled, Metamyelocytes % Cancelled, Myelocytes % Cancelled, Promyelocytes % Cancelled, Blast Cells % Cancelled, Plasma Cell % (Manual) Cancelled, Other Cells % Cancelled, Lymphocytes # Cancelled, Nucleated RBCs/100 WBC Cancelled, Differential Comment Cancelled, Diff Path Review Cancelled, Hypersegmented Neuts Cancelled, Atypical Lymphocytes Cancelled, Reactive Lymphocytes Cancelled, Smudge Cells Cancelled, Eosinophilia # Cancelled, Basophilia # Cancelled, Toxic Granulation Cancelled, Dohle Bodies Cancelled, Miguel Angel Rods Cancelled, Platelet Estimate Cancelled, Plt Morphology Comment Cancelled, RBC Morphology Cancelled, Polychromasia Cancelled, Hypochromasia Cancelled, Poikilocytosis Cancelled, Basophilic Stippling Cancelled, Anisocytosis Cancelled, Microcytosis Cancelled, Macrocytosis Cancelled, Spherocytes Cancelled, Sickle Cells Cancelled, Target Cells Cancelled, Tear Drop Cells Cancelled, Ovalocytes Cancelled, Stomatocytes Cancelled, [place] Bodies Cancelled, Alessandra Cells Cancelled, Bite Cells Cancelled, Acanthocytes (Spur) Cancelled, Rouleaux Cancelled, Schistocytes Cancelled 09/12/18 23:50: Sodium 135 L, Potassium 5.3 H, Chloride 102, Carbon Dioxide 22.0, Anion Gap 11, BUN 29 H, Creatinine 1.23, Estim Creat Clear Calc 68.67, Est GFR (MDRD) Af Amer 81, Est GFR (MDRD) Non-Af 67, BUN/Creatinine Ratio 23.6 H, Glucose 111 H, Calcium 8.1 L, Troponin I 0.087 H 09/13/18 00:45: WBC 21.2 H, RBC 4.54 L, Hgb 10.2 L, Hct 33.4 L, MCV 73.6 L, MCH 22.5 L, MCHC 30.5 L, RDW 17.5 H, RDW Differential 47.2 H, Plt Count 353, MPV 9.2, Immature Gran % (Auto) 0.500, Neut % (Auto) 84.8 H, Lymph % (Auto) 7.2 L, [place] % (Auto) 7.4, Eos % (Auto) 0.0, Baso % (Auto) 0.1, Absolute Neuts (auto) 18.0 H, Absolute Lymphs (auto) 1.53, Total Counted Not Reportable, Nucleated RBC % 0.6, Diff Path Review January, Absolute Retic 0.12 09/13/18 00:45: Lactic Acid 2.3 H 09/13/18 02:15: Mycoplasma pneumon IgG Cancelled, Mycoplasma pneumon IgM Cancelled 09/13/18 03:46: WBC 19.7 H, RBC 4.30 L, Hgb 9.7 L, Hct 31.7 L, MCV 73.7 L, MCH 22.6 L, MCHC 30.6 L, RDW 17.4 H, RDW Differential 46.7 H, Plt Count 330, MPV 8.8, Immature Gran % (Auto) 0.300, Neut % (Auto) 87.2 H, Lymph % (Auto) 7.3 L, [place] % (Auto) 5.0, Eos % (Auto) 0.1, Baso % (Auto) 0.1, Absolute Neuts (auto) 17.1 H, Absolute Lymphs (auto) 1.44, Total Counted Not Reportable, Differential Comment SCAN, Polychromasia 1+, Hypochromasia 1+, Anisocytosis 1+, Microcytosis 1+ 09/13/18 03:46: Sodium 136, Potassium 5.0, Chloride 102, Carbon Dioxide 22.0, Anion Gap 12, BUN 30 H, Creatinine 1.34 H, Estim Creat Clear Calc 65.22, Est GFR (MDRD) Af Amer 73, Est GFR (MDRD) Non-Af 61, BUN/Creatinine Ratio 22.4 H, Glucose 138 H, Calcium 7.9 L 09/13/18 03:46: PT 23.0 H, INR 2.0, APTT 32.0 09/13/18 03:46: Magnesium 2.4 09/13/18 03:46: B-Natriuretic Peptide 1621.3 H 09/13/18 05:18: Lactic Acid 3.3 H 09/13/18 06:40: Troponin I 0.083 H Current Medications Albuterol Sulfate (Ventolin Aerosols) 2.5 mg INHALATION Q2H PRN PRN PRN Reason: SHORTNESS OF BREATH Albuterol/Ipratropium (Duoneb) 3 ml INHALATION Q6H.RT [facility] Last Admin: 09/13/18 07:12 Dose: 3 ml Clonidine (Catapres) 0.1 mg PO Q6H PRN PRN PRN Reason: SBP >160 Guaifenesin (Mucinex) 1,200 mg PO BID L[facility]RI[facility] Heparin Sodium (Porcine) (Heparin Na) 0 unit IV UD PRN; Protocol Azithromycin 250 mg/ Dextrose 252.5 mls @ 250 mls/hr IV Q24@2200 [facility] Ceftriaxone Sodium (Rocephin) 1 gm in 50 mls @ 100 mls/hr IV Q24@2200 L[facility]E Heparin Sodium/Dextrose () 25,000 units in 250 mls @ 16 mls/hr IV .[id number] PENDING SALE TO [facility]; Protocol Last Admin: 09/13/18 04:11 Dose: 16 mls/hr Sodium Chloride () 1,000 mls @ 75 mls/hr IV .[id number] PENDING SALE TO [facility] Stop: 09/13/18 19:44 Last Admin: 09/13/18 06:44 Dose: 75 mls/hr Magnesium Hydroxide (Milk Of Magnesia) 30 ml PO DAILY PRN PRN PRN Reason: Constipation Ondansetron HCl (Zofran) 4 mg IV Q8H PRN PRN PRN Reason: Nausea Sodium Chloride () 5 - 15 ml IV UD PRN PRN Reason: SALINE FLUSH Medical Necessity - Tobacco Use Smoking Status: Former smoker Assessment/Plan All Active Problems (Last Updated 09/13/18 @ 01:09 by Mitul Sims MD) Community acquired pneumonia (Acute) Sepsis (Acute) Patient is a 48-year-old gentleman who presented with progressive shortness of breath imaging studies on admission demonstrated pulmonary emboli in bilateral lower lobes, right middle lobe, and bilateral upper lobes. Largest embolus is in the right inferior pulmonary artery with associated occlusion of right lower lobe pulmonary arterial branches. There is evidence for least mild right ventricular strain. Right lower lobe pulmonary consolidation, suspicious for pulmonary infarction patient started on heparin and admitted for subsequent inpatient management 1. Submassive bilateral pulmonary embolism. CT of the chest obtained on admission demonstrated pulmonary emboli in bilateral lower lobes, right middle lobe, and bilateral upper lobes. Largest embolus is in the right inferior pulmonary artery with associated occlusion of right lower lobe pulmonary arterial branches. Patient was also found to have right lower lobe pulmonary consolidation consistent with infection patient started on heparin drip admitted to a monitored bed for subsequent management will consultation placed to Dr. Lucio with pulmonary medicine 2D echo and bilateral venous duplex ordered 2. Acute pulmonary infarction with hemoptysis the underlying etiology patient submassive pulmonary embolism is being managed as discussed above next 3. Hypertension-blood pressure controlled, 4. Ascites order CT of the abdomen with contrast to rule out underlying malignancy 5. Anxiety disorder 6. Morbid obesity with BMI of 42.1 Active Medications Albuterol Sulfate (Ventolin Aerosols) 2.5 mg INHALATION Q2H PRN PRN PRN Reason: SHORTNESS OF BREATH Albuterol/Ipratropium (Duoneb) 3 ml INHALATION Q6H.RT PENDING SALE TO [facility] Last Admin: 09/13/18 07:12 Dose: 3 ml Clonidine (Catapres) 0.1 mg PO Q6H PRN PRN PRN Reason: SBP >160 Guaifenesin (Mucinex) 1,200 mg PO BID PENDING SALE TO [facility] Heparin Sodium (Porcine) (Heparin Na) 0 unit IV UD PRN; Protocol Heparin Sodium/Dextrose () 25,000 units in 250 mls @ 16 mls/hr IV .[id number] PENDING SALE TO [facility]; Protocol Last Admin: 09/13/18 04:11 Dose: 16 mls/hr Sodium Chloride () 1,000 mls @ 75 mls/hr IV .[id number] PENDING SALE TO [facility] Stop: 09/13/18 19:44 Last Admin: 09/13/18 06:44 Dose: 75 mls/hr Magnesium Hydroxide (Milk Of Magnesia) 30 ml PO DAILY PRN PRN PRN Reason: Constipation Ondansetron HCl (Zofran) 4 mg IV Q8H PRN PRN PRN Reason: Nausea Sodium Chloride () 5 - 15 ml IV UD PRN PRN Reason: SALINE FLUSH Clinical Impression(s) from Imaging Studies Chest X-Ray 09/12/18 21:58 IMPRESSION: No acute pulmonary process, no interval change Electronically Signed: Darryl Brambila MD at 23:00 EST , Service support , Chest CT 09/13/18 00:53 IMPRESSION: Pulmonary emboli in bilateral lower lobes, right middle lobe, and bilateral upper lobes. Largest embolus is in the right inferior pulmonary artery with associated occlusion of right lower lobe pulmonary arterial branches. There is evidence for least mild right ventricular strain. Right lower lobe pulmonary consolidation, suspicious for pulmonary infarction, or less likely pneumonia. Cardiomegaly. Coronary artery atherosclerosis. Mild mediastinal and right hilar lymphadenopathy. Old granulomatous disease. Ascites within visualized upper abdomen. N.B. : The above information has been verbally conveyed by Cem Jefferson MD to MITUL SIMS MD, on 09/13/2018 03:00:13 (ET). Electronically Signed: Cem Jefferson MD at 2:13 EST , Service support , Code Visit Inpatient E&M: 24947 Subs Hosp L3
--- NOTE | 2018-09-13 09:13 | CT_ITS ---
STUDY: CT ABDOMEN AND PELVIS WITHOUT CONTRAST REASON FOR EXAM: Male, 48 years old. Sepsis. Abdominal bloating. Bilateral pulmonary emboli. RADIATION DOSAGE (If Supplied By Facility): CTDIvol = ( 22.52 ) mGy, DLP = ( 1328.02 ) mGycm TECHNIQUE: Transaxial images were obtained from the dome of the diaphragm to the symphysis pubis without oral contrast, and without intravenous contrast. Sagittal and coronal images were reconstructed. Individualized dose optimization techniques were used for this CT. COMPARISON: Comparison is made with prior chest radiograph dated September 12, 2018. FINDINGS: Dense consolidation in the right lower lobe suggestive of pneumonia. Mild increased markings at the left lung base. Mild cardiomegaly. Small amount of perihepatic and perisplenic fluid. Small amount of fluid is seen in the thyroid, Papo as well as within the pelvis. Small amount of fluid is seen in the root of the mesentery. Normal liver. Increased densities within the gallbladder suggestive of either small gallstones or sludge. Normal spleen. Normal pancreas. Normal bilateral adrenal glands. Normal right kidney. Normal left kidney. Contrast is seen within the collecting system due to prior CT scan of the thorax. Normal visualized stomach. Normal small intestine. Normal colon. The appendix is visualized and appears normal. Normal abdominal aorta. Normal inferior vena cava. Normal retroperitoneum. Normal urinary bladder. Increased markings in the subcutaneous fat. Possible fluid overload. There are mild degenerative changes of the visualized lumbar spine. CT/Abdomen/Pelvis without Cont IMPRESSION: Dense consolidation in the right lower lobe. Small amount of ascites. Electronically Signed: Cristiano Warren MD at 15:17 EST Tel [phone], Service support ,
--- NOTE | 2018-09-13 10:10 | NURSING ---
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 Matute stating writting for PCU transfer. awaRe PCU 114 and to wait 10min to call report. primary RN informed.
[2018-09-13] MEDS: guaiFENesin 1,200 MG Tablet 1200 MG PO ×2 (10:27→21:40)
--- NOTE | 2018-09-13 10:30 | CASEMGMT ---
RN BOUBACAR Face to Face with patient for initial transition planning/care coordination assessment. RN CM introduced self and role at [facility]. Patient lying in bed, alert and oriented. Patient willing to participate in assessment and is able to answer all questions appropriately. Care providers, pharmacy, and demographics verified. Patient wishes to discharge home, denies need for home health at this time. Patient states he has no further needs or concerns at this time. CM to follow for discharge planning needs that may arise. PCP: Lavern Conti, patient has not seen in a long time. Specialists: None Preferred Pharmacy: [facility] Insurance: Patient just signed up for [facility] Prescription Benefit: Living Will/HPOA: None LNOK: Friend Living Arrangements: Patient lives alone in his camper Transportation: self/friend DME/HHC: None Disposition Plan: Patient to discharge home with follow-up plans in place. CM to monitor for needs. Denise CARDOZO, RN, CM
--- NOTE | 2018-09-13 10:44 | NURSING ---
report called to [facility]...
[2018-09-13 10:45] LABS: Partial Thromboplast Time 40.3 Seconds (24.1-36.2)
[2018-09-13] MEDS: Heparin Injection (Vial) 5,000 UNIT/ML VIAL IV ×2 (11:40→18:30)
[2018-09-13 11:55] LABS: AST(SGOT) 710 U/L (15-37); Alanine Aminotransfer ALT/SGPT 621 U/L (16-61); Albumin, Serum 2.2 g/dL (3.2-5.0); Alkaline Phosphatase 119 U/L (45-117); Bilirubin, Direct 0.75 mg/dL (0.00-0.30); Globulin 4.1 g/dL (2.2-4.2); Protein, Total 6.3 g/dL (6.4-8.2)
[2018-09-13 14:07] LABS: Pathologist Review Reviewed
[2018-09-13 17:24] LABS: Partial Thromboplast Time 35.4 Seconds (24.1-36.2)
--- NOTE | 2018-09-13 17:46 | PCM.CONS.C ---
Reason for Consult Date of Consultation: 09/13/18 Reason for Consultation: Abnormal cardiac enzymes. Shortness of breath History of Present Illness: The patient is a 48 year old M with no previous medical history other than hypertension who presented to the emergency room with fatigue shortness of breath and generalized weakness. He apparently was seen there and was treated for an upper respiratory tract infection. On this admission he was noted to be mildly tachycardic with his chest x-ray demonstrating evidence of a consolidation. He was admitted to the medicine floor with a diagnosis of community-acquired pneumonia. A CT scan performed demonstrated evidence of submassive pulmonary embolus with possible pulmonary infarction. Patient was also noted to have abnormal cardiac enzymes and natriuretic peptide level and an echocardiogram was ordered. It demonstrated severe left ventricular systolic dysfunction which was global in nature with evidence of a left apical thrombus. [] Past Medical History Allergies/Adverse Reactions: Allergies lisinopril Allergy (Verified 09/01/18 19:43) Angioedema Home Medications: Ambulatory Orders Medication Instructions Recorded NK 09/12/18 Surgical History: no surgical history - *Family History Maternal Family History: Family History (Last Updated 09/13/18 @ 01:10 by Mitul Rubin MD) Mother Diabetes Father Lung disease Lives: Alone Smoking Status: Former smoker Alcohol: None Review of Systems - Review of Systems General: Reports: Malaise. Denies: Fever, Fatigue, Night Sweats HEENT: Denies: Vision Change Cardiovascular: Reports: Shortness of Breath, Shortness of Breath at Rest, Peripheral Edema. Denies: Chest Discomfort, Orthopnea, PND, Palpitations, Lightheadedness, Dizziness, Near Syncope, Syncope Respiratory: Denies: Cough, Sputum Production, Hemoptysis Gastrointestinal: Denies: Indigestion, Hematemesis, Hematochezia, Melena Genitourinary: Denies: Dysuria, Hematuria Muscoloskeletal: Denies: Myalgias Skin: Denies: Rash Neurological: Denies: Dizziness Psychiatric: Denies: Anxiety Endocrine: Denies: Heat Intolerance, Unexplained Weight Loss Hematologic/ Lymphatic: Reports: Anemia Subjectve: Young man in no apparent distress Objective: Vital Signs Temp Pulse Resp BP Pulse Ox 98.3 F 114 H 24 H 176/96 H 94 09/13/18 14:00 09/13/18 14:00 09/13/18 14:00 09/13/18 14:00 09/13/18 14:00 Oxygen Flow Rate (L/min) 3 Oxygen Delivery Method Nasal Cannula Weight: 276 lb 10.882 oz Body Mass Index (BMI) 42.0 Intake and Output for Last 24 Hours 09/11/18 09/12/18 09/13/18 23:59 23:59 23:59 Intake Total 2193.1 / 2193.1 Output Total 850 / 850 Balance 1343.1 / 1343.1 General: Awake, Alert, Oriented x 3 HEENT: PERRL, EOMI, Sclera Non Icteric Neck: Supple, Good ROM, No Lymph Node Enlargement Lungs: Clear to auscultation, Diminished Right Base Cardiovascular: Regular Rhythm, Normal S1, Normal S2, No Murmurs, No Rubs, No Gallops Vascular: No Carotid Bruits, Normal Femoral Pulses, Normal Radial Pulses, Normal Dorsalis Pedal Pulse, Normal Posterior Tibial Pulses Abdomen: Bowel Sounds Present, Soft, Non Tender, No HSM, No Organomegaly Extremities: No Cyanosis, No Clubbing, No edema, Bilateral Edema +1 Musculoskeletal: No Erythema Skin: No Rashes Lymphatic: No Lymph Node Enlargement Neurological: No Focal Motor or Sensory Deficit 09/12/18 23:50: WBC Cancelled, Corrected WBC Cancelled, RBC Cancelled, Hgb Cancelled, Hct Cancelled, MCV Cancelled, MCH Cancelled, MCHC Cancelled, RDW Cancelled, RDW Differential Cancelled, Plt Count Cancelled, MPV Cancelled, Immature Gran % (Auto) Cancelled, Neut % (Auto) Cancelled, Lymph % (Auto) Cancelled, [place] % (Auto) Cancelled, Eos % (Auto) Cancelled, Baso % (Auto) Cancelled, Immature Gran # (Auto) Cancelled, Absolute Neuts (auto) Cancelled, Absolute Monos (auto) Cancelled, Total Counted Cancelled, Neutrophils % (Manual) Cancelled, Band Neutrophils % Cancelled, Lymphocytes % (Manual) Cancelled, Monocytes % (Manual) Cancelled, Eosinophils % (Manual) Cancelled, Basophils % (Manual) Cancelled, Metamyelocytes % Cancelled, Myelocytes % Cancelled, Promyelocytes % Cancelled, Blast Cells % Cancelled, Plasma Cell % (Manual) Cancelled, Other Cells % Cancelled, Lymphocytes # Cancelled 09/12/18 23:50: Sodium 135 L, Potassium 5.3 H, Chloride 102, Carbon Dioxide 22.0, Anion Gap 11, BUN 29 H, Creatinine 1.23, Est GFR (MDRD) Af Amer 81, Est GFR (MDRD) Non-Af 67, BUN/Creatinine Ratio 23.6 H, Glucose 111 H, Calcium 8.1 L, Troponin I 0.087 H 09/13/18 00:45: WBC 21.2 H, RBC 4.54 L, Hgb 10.2 L, Hct 33.4 L, MCV 73.6 L, MCH 22.5 L, MCHC 30.5 L, RDW 17.5 H, RDW Differential 47.2 H, Plt Count 353, MPV 9.2, Immature Gran % (Auto) 0.500, Neut % (Auto) 84.8 H, Lymph % (Auto) 7.2 L, [place] % (Auto) 7.4, Eos % (Auto) 0.0, Baso % (Auto) 0.1, Absolute Neuts (auto) 18.0 H, Total Counted Not Reportable, Nucleated RBC % 0.6 09/13/18 00:45: Lactic Acid 2.3 H 09/13/18 03:46: WBC 19.7 H, RBC 4.30 L, Hgb 9.7 L, Hct 31.7 L, MCV 73.7 L, MCH 22.6 L, MCHC 30.6 L, RDW 17.4 H, RDW Differential 46.7 H, Plt Count 330, MPV 8.8, Immature Gran % (Auto) 0.300, Neut % (Auto) 87.2 H, Lymph % (Auto) 7.3 L, [place] % (Auto) 5.0, Eos % (Auto) 0.1, Baso % (Auto) 0.1, Absolute Neuts (auto) 17.1 H, Total Counted Not Reportable 09/13/18 03:46: Sodium 136, Potassium 5.0, Chloride 102, Carbon Dioxide 22.0, Anion Gap 12, BUN 30 H, Creatinine 1.34 H, Est GFR (MDRD) Af Amer 73, Est GFR (MDRD) Non-Af 61, BUN/Creatinine Ratio 22.4 H, Glucose 138 H, Calcium 7.9 L 09/13/18 03:46: PT 23.0 H, INR 2.0, APTT 32.0 09/13/18 03:46: Magnesium 2.4 09/13/18 03:46: B-Natriuretic Peptide 1621.3 H 09/13/18 05:18: Lactic Acid 3.3 H 09/13/18 06:40: Troponin I 0.083 H 09/13/18 10:20: APTT 40.3 H 09/13/18 10:20: Troponin I 0.076 H 09/13/18 10:20: Total Bilirubin 1.30 H, Direct Bilirubin 0.75 H 09/13/18 13:35: Troponin I 0.073 H 09/13/18 16:30: APTT 35.4 Rhythm: EKG: Sinus tachycardia ECHO: Severe left ventricular systolic dysfunction with estimated ejection fraction of 15% with left ventricular apical thrombus Stress Test: Cardiac Cath: PCI: CT Surgery: Holter monitor: EPS: PPM: CXR: Chest CT Scan: Assessment/Plan 1. Acute systolic heart failure Patient presents with shortness of breath and has been diagnosed to have a pulmonary embolism but in addition has elevated natruretic peptide level, rales and severe left ventricular systolic dysfunction. I suspect the etiology of the above is secondary to severe hypertension. Recommendation will be to start low-dose beta-kait Diuresis with intravenous Lasix Due to previous history of angioedema I am hesitant to start an MARY inhibitor at this time or an ARB There is evidence of liver function test abnormalities which could be secondary to passive congestion. 2. Hypertension Since blood pressure is uncontrolled we will start beta-kait and titrate upwards as appropriate Also diurese with intravenous Lasix May benefit from spironolactone 3. Left ventricular apical thrombus The etiology of the above is unclear but without any evidence of infarction in the global nature I wonder whether there is an underlying coagulopathy problem. Would need to anticoagulate with heparin or a factor X inhibitor Recommend repeat echocardiogram in 3 months to reassess ventricular thrombus 4. Submassive pulmonary embolism Patient appears to have developed the above without any underlying etiology. May need to be investigated fully to make sure there is no underlying malignancy. Will strongly urge coagulopathy workup and possible input from heme Onc service Thank you for allowing me to participate in the care of your patient. Please don't hesitate to call if any issues arise
--- NOTE | 2018-09-13 17:53 | CON.PCM_ITS ---
Reason for Consult Date of Consultation: 09/13/18 Reason for Consultation: Abnormal cardiac enzymes. Shortness of breath History of Present Illness: The patient is a 48 year old M with no previous medical history other than hypertension who presented to the emergency room with fatigue shortness of breath and generalized weakness. He apparently was seen there and was treated for an upper respiratory tract infection. On this admission he was noted to be mildly tachycardic with his chest x-ray demonstrating evidence of a consolidation. He was admitted to the medicine floor with a diagnosis of community-acquired pneumonia. A CT scan performed demonstrated evidence of submassive pulmonary embolus with possible pulmonary infarction. Patient was also noted to have abnormal cardiac enzymes and natriuretic peptide level and an echocardiogram was ordered. It demonstrated severe left ventricular systolic dysfunction which was global in nature with evidence of a left apical thrombus. [] Past Medical History Allergies/Adverse Reactions: Allergies lisinopril Allergy (Verified 09/01/18 19:43) Angioedema Home Medications: Ambulatory Orders Medication Instructions Recorded NK 09/12/18 Surgical History: no surgical history - *Family History Maternal Family History: Family History (Last Updated 09/13/18 @ 01:10 by Mitul Rubin MD) Mother Diabetes Father Lung disease Lives: Alone Smoking Status: Former smoker Alcohol: None Review of Systems - Review of Systems General: Reports: Malaise. Denies: Fever, Fatigue, Night Sweats HEENT: Denies: Vision Change Cardiovascular: Reports: Shortness of Breath, Shortness of Breath at Rest, P eripheral Edema. Denies: Chest Discomfort, Orthopnea, PND, Palpitations, Lightheadedness, Dizziness, Near Syncope, Syncope Respiratory: Denies: Cough, Sputum Production, Hemoptysis Gastrointestinal: Denies: Indigestion, Hematemesis, Hematochezia, Melena Genitourinary: Denies: Dysuria, Hematuria Muscoloskeletal: Denies: Myalgias Skin: Denies: Rash Neurological: Denies: Dizziness Psychiatric: Denies: Anxiety Endocrine: Denies: Heat Intolerance, Unexplained Weight Loss Hematologic/ Lymphatic: Reports: Anemia Subjectve: Young man in no apparent distress Objective: Vital Signs Temp Pulse Resp BP Pulse Ox 98.3 F 114 H 24 H 176/96 H 94 09/13/18 14:00 09/13/18 14:00 09/13/18 14:00 09/13/18 14:00 09/13/18 14:00 Oxygen Flow Rate (L/min) 3 Oxygen Delivery Method Nasal Cannula Weight: 276 lb 10.882 oz Body Mass Index (BMI) 42.0 Intake and Output for Last 24 Hours 09/11/18 09/12/18 09/13/18 23:59 23:59 23:59 Intake Total 2193.1 / 2193.1 Output Total 850 / 850 Balance 1343.1 / 1343.1 General: Awake, Alert, Oriented x 3 HEENT: PERRL, EOMI, Sclera Non Icteric Neck: Supple, Good ROM, No Lymph Node Enlargement Lungs: Clear to auscultation, Diminished Right Base Cardiovascular: Regular Rhythm, Normal S1, Normal S2, No Murmurs, No Rubs, No Gallops Vascular: No Carotid Bruits, Normal Femoral Pulses, Normal Radial Pulses, Normal Dorsalis Pedal Pulse, Normal Posterior Tibial Pulses Abdomen: Bowel Sounds Present, Soft, Non Tender, No HSM, No Organomegaly Extremities: No Cyanosis, No Clubbing, No edema, Bilateral Edema +1 Musculoskeletal: No Erythema Skin: No Rashes Lymphatic: No Lymph Node Enlargement Neurological: No Focal Motor or Sensory Deficit 09/12/18 23:50: WBC Cancelled, Corrected WBC Cancelled, RBC Cancelled, Hgb Canc elled, Hct Cancelled, MCV Cancelled, MCH Cancelled, MCHC Cancelled, RDW Cancelled, RDW Differential Cancelled, Plt Count Cancelled, MPV Cancelled, Immature Gran % (Auto) Cancelled, Neut % (Auto) Cancelled, Lymph % (Auto) Cancelled, [place] % (Auto) Cancelled, Eos % (Auto) Cancelled, Baso % (Auto) Cancelled, Immature Gran # (Auto) Cancelled, Absolute Neuts (auto) Cancelled, Absolute Monos (auto) Cancelled, Total Counted Cancelled, Neutrophils % (Manual) Cancelled, Band Neutrophils % Cancelled, Lymphocytes % (Manual) Cancelled, Monocytes % (Manual) Cancelled, Eosinophils % (Manual) Cancelled, Basophils % (Manual) Cancelled, Metamyelocytes % Cancelled, Myelocytes % Cancelled, Promyelocytes % Cancelled, Blast Cells % Cancelled, Plasma Cell % (Manual) Cancelled, Other Cells % Cancelled, Lymphocytes # Cancelled 09/12/18 23:50: Sodium 135 L, Potassium 5.3 H, Chloride 102, Carbon Dioxide 22.0, Anion Gap 11, BUN 29 H, Creatinine 1.23, Est GFR (MDRD) Af Amer 81, Est GFR (MDRD) Non-Af 67, BUN/Creatinine Ratio 23.6 H, Glucose 111 H, Calcium 8.1 L, Troponin I 0.087 H 09/13/18 00:45: WBC 21.2 H, RBC 4.54 L, Hgb 10.2 L, Hct 33.4 L, MCV 73.6 L, MCH 22.5 L, MCHC 30.5 L, RDW 17.5 H, RDW Differential 47.2 H, Plt Count 353, MPV 9.2, Immature Gran % (Auto) 0.500, Neut % (Auto) 84.8 H, Lymph % (Auto) 7.2 L, [place] % (Auto) 7.4, Eos % (Auto) 0.0, Baso % (Auto) 0.1, Absolute Neuts (auto) 18.0 H, Total Counted Not Reportable, Nucleated RBC % 0.6 09/13/18 00:45: Lactic Acid 2.3 H 09/13/18 03:46: WBC 19.7 H, RBC 4.30 L, Hgb 9.7 L, Hct 31.7 L, MCV 73.7 L, MCH 22.6 L, MCHC 30.6 L, RDW 17.4 H, RDW Differential 46.7 H, Plt Count 330, MPV 8.8, Immature Gran % (Auto) 0.300, Neut % (Auto) 87.2 H, Lymph % (Auto) 7.3 L, [place] % (Auto) 5.0, Eos % (Auto) 0.1, Baso % (Auto) 0.1, Absolute Neuts (auto) 17.1 H, Total Counted Not Reportable 09/13/18 03:46: Sodium 136, Potassium 5.0, Chloride 102, Carbon Dioxide 22.0, Anion Gap 12, BUN 30 H, Creatinine 1.34 H, Est GFR (MDRD) Af Amer 73, Est GFR (MDRD) Non-Af 61, BUN/Creatinine Ratio 22.4 H, Glucose 138 H, Calcium 7.9 L 09/13/18 03:46: PT 23.0 H, INR 2.0, APTT 32.0 09/13/18 03:46: Magnesium 2.4 09/13/18 03:46: B-Natriuretic Peptide 1621.3 H 09/13/18 05:18: Lactic Acid 3.3 H 09/13/18 06:40: Troponin I 0.083 H 09/13/18 10:20: APTT 40.3 H 09/13/18 10:20: Troponin I 0.076 H 09/13/18 10:20: Total Bilirubin 1.30 H, Direct Bilirubin 0.75 H 09/13/18 13:35: Troponin I 0.073 H 09/13/18 16:30: APTT 35.4 Rhythm: EKG: Sinus tachycardia ECHO: Severe left ventricular systolic dysfunction with estimated ejection fraction of 15% with left ventricular apical thrombus Stress Test: Cardiac Cath: PCI: CT Surgery: Holter monitor: EPS: PPM: CXR: Chest CT Scan: Assessment/Plan 1. Acute systolic heart failure * Patient presents with shortness of breath and has been diagnosed to have a pulmonary embolism but in addition has elevated natruretic peptide level, rales and severe left ventricular systolic dysfunction. I suspect the etio logy of the above is secondary to severe hypertension. * Recommendation will be to start low-dose beta-kait * Diuresis with intravenous Lasix * Due to previous history of angioedema I am hesitant to start an MARY inhibitor at this time or an ARB * There is evidence of liver function test abnormalities which could be secondary to passive congestion. 2. Hypertension * Since blood pressure is uncontrolled we will start beta-kait and titrate upwards as appropriate * Also diurese with intravenous Lasix * May benefit from spironolactone * 3. Left ventricular apical thrombus * The etiology of the above is unclear but without any evidence of infarction in the global nature I wonder whether there is an underlying coagulopathy problem. * Would need to anticoagulate with heparin or a factor X inhibitor * Recommend repeat echocardiogram in 3 months to reassess ventricular thrombus * 4. Submassive pulmonary embolism * Patient appears to have developed the above without any underlying etiology. May need to be investigated fully to make sure there is no underlying malignancy. Will strongly urge coagulopathy workup and possible input from heme Onc service Thank you for allowing me to participate in the care of your patient. Please don't hesitate to call if any issues arise
[2018-09-13] MEDS: Furosemide 40 MG/4 ML Vial IV (18:30)
[2018-09-13] MEDS: Carvedilol 6.25 MG Tablet PO (21:40)
[2018-09-13] MEDS: BENZOCAINE/MENTHOL 1 LOZENGE 2 LOZENGE MUCOUS MEM (23:14)
[2018-09-14] VITALS (36 sets, daily range): BP systolic 93–132; BP diastolic 63–95; PULSE 89–113; RESP 12–33; TEMP 36.4–36.8; O2SAT 92–100
[2018-09-14] MEDS: Ipratropium/Albuterol Sulfate 3 ML AMPUL.NEB INHALATION ×4 (01:10→20:00)
[2018-09-14 01:37] LABS: Partial Thromboplast Time 35.3 Seconds (24.1-36.2)
[2018-09-14] MEDS: Heparin Injection (Vial) 5,000 UNIT/ML VIAL IV ×2 (01:48→09:59)
[2018-09-14] MEDS: 0.9% NaCl Peripheral Flush Adult/Peds IV (01:48)
[2018-09-14] MEDS: HEPARIN/D5w 25,000 UNITS 25,000 UNITS/250 ML IV.SOLN. 16 UNITS IV (05:55)
--- NOTE | 2018-09-14 08:19 | CT_ITS ---
STUDY: CT BRAIN WITHOUT CONTRAST REASON FOR EXAM: Male, 48 years old. Change in mental status. Confusion. The patient is septic. RADIATION DOSAGE (If Supplied By Facility): CTDIvol = ( 44.99 ) mGy, DLP = ( 762.36 ) mGycm TECHNIQUE: Transaxial CT imaging of the brain was performed without administration of intravenous contrast material. Individualized dose optimization techniques were used for this CT. COMPARISON: None. FINDINGS: Normal soft tissue structures. Normal calvarium. Normal size ventricles and extra-axial spaces for the patient's age. Normal white matter tracts of the cerebral hemispheres. Normal basal ganglia and thalami. Normal brainstem. Normal cerebellum. There is no intracranial hemorrhage. There are no findings of an acute ischemic infarction. Normal visualized paranasal sinuses. CT/Brain/Head without Contrast IMPRESSION: Normal unenhanced CT scan of the brain. Electronically Signed: Cristiano Warren MD at 9:30 EST Tel [phone], Service support ,
[2018-09-14 08:20] LABS: Hematocrit 31.1 % (40-54); Hemoglobin 9.6 g/dl (13.0-16.5); Mean Corp Hgb Conc 30.9 g/gl (32-36); Mean Corpuscular Hgb 23.1 pg (27.0-32.0); Mean Corpuscular Volume 74.9 fL (80-94); Mean Platelet Vol. 9.6 fl (6.2-12.0); Platelet Count 354 K/mm3 (150-450); RBC Distribution Width CV 17.7 % (11.6-14.6); RBC Distribution Width SD 46.4 fl (35.1-43.9); Red Blood Count 4.15 M/mm3 (4.6-6.2); Scan Indicated on CBC? Y/N YES- FLAGS NOTED; White Blood Count 16.8 K/mm3 (4.4-11.0)
[2018-09-14 08:41] LABS: Anion Gap 10 (5-15); BUN 32 mg/dL (7-18); BUN/Creat Ratio 29.4 RATIO (10-20); Calcium,Total 7.9 mg/dL (8.5-10.1); Chloride 104 mmol/L (98-107); Creatinine, Serum 1.09 mg/dL (0.70-1.30); EST Glomerular Filtration Rate 77 mL/min (>60); Est Glom Filt Rate - Afr Amer 93 mL/min (>60); Estimated Creatinine Clearance 80.18 ml/min; Glucose 130 mg/dL (74-106); Magnesium 2.4 mg/dL (1.6-2.6); Potassium 4.2 mmol/L (3.5-5.1); Sodium Level 139 mmol/L (136-145)
[2018-09-14] MEDS: guaiFENesin 1,200 MG Tablet 1200 MG PO ×2 (09:59→21:09)
[2018-09-14] MEDS: Carvedilol 6.25 MG Tablet PO ×2 (09:59→21:09)
[2018-09-14] MEDS: Furosemide 40 MG/4 ML Vial IV ×2 (09:59→17:35)
--- NOTE | 2018-09-14 10:58 | PN_ITS ---
Patient Problems: Active and Suspected Problems (Last Updated 09/13/18 @ 01:09 by Mitul Rubin MD) Community acquired pneumonia (Acute) Sepsis (Acute) Subjective: Patient underwent 2D echo examination on 09/13/2018 which demonstrated severe left ventricular systolic dysfunction which was global in nature with evidence of a left apical thrombus. Consult subsequently placed to cardiology Objective: GENERAL: Somewhat dyspneic at rest HEENT: Atraumatic; moist oral mucosa EYES; Anicteric, Normal Conjunctiva NECK; supple, normal thyroid, no distended JVD. RESPIRATORY: Diminished to auscultation bilaterally, CARDIOVASCULAR: Regular S1 S2, no audible murmurs GI: Distended non-tender, normoactive bowel sounds, : No Renal angle tenderness; EXTREMITIES: Plus bipedal edema, no clubbing, no cyanosis. MUSCULOSKELETAL: No Joint Tenderness; no muscle waisting NEURO: Awake; no lateralizing signs. SKIN: No Rash PSYCH; Normal affect Vitals/I&O's: Vital Signs Temp Pulse Resp BP Pulse Ox 97.6 F L 109 H 18 132/82 H 94 09/14/18 06:50 09/14/18 07:21 09/14/18 07:01 09/14/18 07:00 09/14/18 07:01 Oxygen Flow Rate (L/min) 9 Oxygen Delivery Method Venturi Mask Weight: 123.6 kg Body Mass Index (BMI) 42.0 Intake and Output for Last 24 Hours 09/12/18 09/13/18 09/14/18 23:59 23:59 23:59 Intake Total 3768.1 / 3768.1 240 / 240 Output Total 2475 / 2475 400 / 400 Balance 1293.1 / 1293.1 -160 / -160 Microbiology Past 72 Hours 09/13/18 03:39 Mucosa - Nose Respiratory Panel (PCR) - Final Rhinovirus 09/13/18 03:30 Urine, Clean Catch Legionella Antigen - Final 09/13/18 03:30 Urine, Clean Catch Streptococcus pneumoniae Antigen (M - Final Laboratory Results 09/13/18 00:45: Diff Path Review Reviewed 09/13/18 10:20: Total Bilirubin 1.30 H, Direct Bilirubin 0.75 H, AST 710 H, ALT 621 H, Alkaline Phosphatase 119 H, Total Protein 6.3 L, Albumin 2.2 L, Globulin 4.1 09/13/18 13:35: Troponin I 0.073 H 09/13/18 16:30: APTT 35.4 09/14/18 00:55: APTT 35.3 09/14/18 08:10: WBC 16.8 H, RBC 4.15 L, Hgb 9.6 L, Hct 31.1 L, MCV 74.9 L, MCH 23.1 L, MCHC 30.9 L, RDW 17.7 H, RDW Differential 46.4 H, Plt Count 354, MPV 9.6, Differential Comment COMMENT 09/14/18 08:10: Sodium 139, Potassium 4.2, Chloride 104, Carbon Dioxide 25.0, Anion Gap 10, BUN 32 H, Creatinine 1.09, Estim Creat Clear Calc 80.18, Est GFR (MDRD) Af Amer 93, Est GFR (MDRD) Non-Af 77, BUN/Creatinine Ratio 29.4 H, Glucose 130 H, Calcium 7.9 L, Magnesium 2.4 09/14/18 08:10: APTT 41.0 H Current Medications Albuterol Sulfate (Ventolin Aerosols) 2.5 mg INHALATION Q2H PRN PRN PRN Reason: SHORTNESS OF BREATH Albuterol/Ipratropium (Duoneb) 3 ml INHALATION Q6H.RT [facility] Last Admin: 09/14/18 07:00 Dose: 3 ml Carvedilol (Coreg) 6.25 mg PO BID [facility] Last Admin: 09/14/18 09:59 Dose: 6.25 mg Furosemide (Lasix) 40 mg IV BID@1000,1800 [facility] Last Admin: 09/14/18 09:59 Dose: 40 mg Guaifenesin (Mucinex) 1,200 mg PO BID [facility] Last Admin: 09/14/18 09:59 Dose: 1,200 mg Heparin Sodium (Porcine) (Heparin Na) 0 unit IV UD PRN; Protocol Last Admin: 09/14/18 09:59 Dose: 1,000 unit Heparin Sodium/Dextrose () 25,000 units in 250 mls @ 16 mls/hr IV .[id number] [facility]; Protocol Last Admin: 09/14/18 05:55 Dose: 16 mls/hr Magnesium Hydroxide (Milk Of Magnesia) 30 ml PO DAILY PRN PRN PRN Reason: Constipation Ondansetron HCl (Zofran) 4 mg IV Q8H PRN PRN PRN Reason: Nausea Sodium Chloride () 5 - 15 ml IV UD PRN PRN Reason: SALINE FLUSH Last Admin: 09/14/18 01:48 Dose: 10 ml Throat Lozenges (Cepacol Sore Throat Lozenge) 2 lozenge MUCOUS MEM Q2H PRN PRN PRN Reason: COUGH Last Admin: 09/13/18 23:14 Dose: 2 lozenge Medical Necessity - Tobacco Use Smoking Status: Former smoker Assessment/Plan All Active Problems (Last Updated 09/13/18 @ 01:09 by Mitul Rubin MD) Community acquired pneumonia (Acute) Sepsis (Acute) Patient is a 48-year-old gentleman who presented with progressive shortness of breath imaging studies on admission demonstrated pulmonary emboli in bilateral lower lobes, right middle lobe, and bilateral upper lobes. Largest embolus is in the right inferior pulmonary artery with associated occlusion of right lower lobe pulmonary arterial branches. There is evidence for least mild right ventricular strain. Right lower lobe pulmonary consolidation, suspicious for pulmonary infarction patient started on heparin and admitted for subsequent inpatient management 1. Submassive bilateral pulmonary embolism. CT of the chest obtained on admission demonstrated pulmonary emboli in bilateral lower lobes, right middle lobe, and bilateral upper lobes. Largest embolus is in the right inferior pulmonary artery with associated occlusion of right lower lobe pulmonary arterial branches. Patient was also found to have right lower lobe pulmonary consolidation consistent with infection patient started on heparin drip admitted to a monitored bed for subsequent management will consultation placed to Dr. Lucio with pulmonary medicine 2D echo and bilateral venous duplex ordered patient remains on heparin 2. Acute pulmonary infarction with hemoptysis the underlying etiology patient submassive pulmonary embolism is being managed as discussed above 3. Acute systolic heart failure. Patient 2D echo obtained as part of workup of his pulmonary embolism demonstrated EF of 10% as well as the presence of a left apical thrombus. Consultation was placed to cardiology patient seen by Dr. Camara is noted recommendations reviewed 4. Hypertension-blood pressure controlled, 5. Ascites order CT of the abdomen with contrast to rule out underlying malignancy; CT of the abdomen demonstrated only small amount of ascites 6. Anxiety disorder 7. Morbid obesity with BMI of 42.1 8. Suspected sleep apnea patient undergo sleep study following his discharge Clinical Impression(s) from Imaging Studies Abdomen/Pelvis CT 09/13/18 09:13 IMPRESSION: Dense consolidation in the right lower lobe. Small amount of ascites. Electronically Signed: Cristiano Warren MD at 15:17 EST Tel [phone], Service support , Brain CT 09/14/18 08:19 IMPRESSION: Normal unenhanced CT scan of the brain. Electronically Signed: Cristiano Warren MD at 9:30 EST Tel [phone], Service support , Code Visit Inpatient E&M: 53501 Subs Hosp L3
[2018-09-14] MEDS: BENZOCAINE/MENTHOL 1 LOZENGE 2 LOZENGE MUCOUS MEM ×2 (12:26→15:57)
--- NOTE | 2018-09-14 13:48 | PCM.PROGNOTE ---
Patient Problems: Active and Suspected Problems (Last Updated 09/13/18 @ 01:09 by Mitul Sims MD) Community acquired pneumonia (Acute) Sepsis (Acute) Subjective: The patient was seen and examined at the bedside this morning. Events from the last 24 hours have been reviewed. The patient is currently afebrile, hemodynamically stable and maintaining appropriate oxygen saturations on 5 L/min via nasal cannula. The patient's niece is present at the bedside. The patient denies further hemoptysis. He did become confused overnight and a CT head was obtained this morning which was unremarkable. Objective: The patient's most recent lab work, culture data and imaging studies have all been personally reviewed. - Physical Exam General: Alert, Cooperative, - - Sitting in bedside recliner. HEENT: Atraumatic, PERRLA, Normocephalic Oral: No Gingival or Mucosal Lesions/ Ulcerations Neck: Supple, No Nodes, Trachea Midline Lungs: No rhonchi, No wheeze, No rales, Diminished Cardiovascular: Regular rate, Regular Rhythm, Normal S1, Normal S2, No murmurs Abdomen: Bowel Sounds Present, Soft, Non Tender Extremities: No clubbing, No cyanosis, Edema Skin: No breakdown Musculoskeletal: No Tenderness to Palpation of Joints or Extremities Lymphatic: No Cervical, Supraclavicular, or Inguinal Adenopathy Neurological: Cranial nerves II-XII grossly intact, Neuro grossly intact Psych/Mental Status: Normal Affect, Appropriate Vital Signs Temp Pulse Resp BP Pulse Ox 36.6 C 90 18 119/87 H 97 09/14/18 11:00 09/14/18 13:17 09/14/18 13:17 09/14/18 11:00 09/14/18 11:00 Oxygen Flow Rate (L/min) 5 Oxygen Delivery Method Nasal Cannula Weight: 272 lb 7.861 oz Body Mass Index (BMI) 42.0 Intake and Output for Last 24 Hours 09/12/18 09/13/18 09/14/18 23:59 23:59 23:59 Intake Total 3768.1 / 3768.1 761 / 761 Output Total 2475 / 2475 1200 / 1200 Balance 1293.1 / 1293.1 -439 / -439 Microbiology Past 72 Hours 09/13/18 03:39 Respiratory Panel (PCR) - Final Mucosa - Nose Rhinovirus 09/13/18 03:30 Legionella Antigen - Final Urine, Clean Catch 09/13/18 03:30 Streptococcus pneumoniae Antigen (M - Final Urine, Clean Catch Laboratory Tests Past 24 Hrs 09/13/18 09/13/18 09/13/18 00:45 13:35 16:30 WBC RBC Hgb Hct MCV MCH MCHC RDW RDW Differential Plt Count MPV Differential Comment Diff Path Review Reviewed APTT 35.4 Sodium Potassium Chloride Carbon Dioxide Anion Gap BUN Creatinine Estim Creat Clear Calc Est GFR (MDRD) Af Amer Est GFR (MDRD) Non-Af BUN/Creatinine Ratio Glucose Calcium Magnesium Troponin I 0.073 H 09/14/18 09/14/18 09/14/18 00:55 08:10 08:10 WBC 16.8 H RBC 4.15 L Hgb 9.6 L Hct 31.1 L MCV 74.9 L MCH 23.1 L MCHC 30.9 L RDW 17.7 H RDW Differential 46.4 H Plt Count 354 MPV 9.6 Differential Comment COMMENT Diff Path Review APTT 35.3 Sodium 139 Potassium 4.2 Chloride 104 Carbon Dioxide 25.0 Anion Gap 10 BUN 32 H Creatinine 1.09 Estim Creat Clear Calc 80.18 Est GFR (MDRD) Af Amer 93 Est GFR (MDRD) Non-Af 77 BUN/Creatinine Ratio 29.4 H Glucose 130 H Calcium 7.9 L Magnesium 2.4 Troponin I 09/14/18 08:10 WBC RBC Hgb Hct MCV MCH MCHC RDW RDW Differential Plt Count MPV Differential Comment Diff Path Review APTT 41.0 H Sodium Potassium Chloride Carbon Dioxide Anion Gap BUN Creatinine Estim Creat Clear Calc Est GFR (MDRD) Af Amer Est GFR (MDRD) Non-Af BUN/Creatinine Ratio Glucose Calcium Magnesium Troponin I Clinical Impression(s) from Imaging Studies Chest X-Ray 09/12/18 21:58 IMPRESSION: No acute pulmonary process, no interval change Electronically Signed: Darryl Brambila MD at 23:00 EST , Service support , Chest CT 09/13/18 00:53 IMPRESSION: Pulmonary emboli in bilateral lower lobes, right middle lobe, and bilateral upper lobes. Largest embolus is in the right inferior pulmonary artery with associated occlusion of right lower lobe pulmonary arterial branches. There is evidence for least mild right ventricular strain. Right lower lobe pulmonary consolidation, suspicious for pulmonary infarction, or less likely pneumonia. Cardiomegaly. Coronary artery atherosclerosis. Mild mediastinal and right hilar lymphadenopathy. Old granulomatous disease. Ascites within visualized upper abdomen. N.B. : The above information has been verbally conveyed by Cem Jefferson MD to MITUL SIMS MD, on 09/13/2018 03:00:13 (ET). Electronically Signed: Cem Jefferson MD at 2:13 EST , Service support , Abdomen/Pelvis CT 09/13/18 09:13 IMPRESSION: Dense consolidation in the right lower lobe. Small amount of ascites. Electronically Signed: Cristiano Warren MD at 15:17 EST Tel [phone], Service support , Brain CT 09/14/18 08:19 IMPRESSION: Normal unenhanced CT scan of the brain. Electronically Signed: Cristiano Warren MD at 9:30 EST Tel [phone], Service support , Medical Necessity - Tobacco Use Smoking Status: Former smoker Assessment/Plan All Active Problems (Last Updated 09/13/18 @ 01:09 by Mitul Sims MD) Community acquired pneumonia (Acute) Sepsis (Acute) RECOMMENDATIONS: 1. Continue heparin drip with plans to eventually transition patient to oral anticoagulation regimen. 2. Medical management of the patient's cardiomyopathy per cardiology recommendations. 3. Wean supplemental oxygen to maintain saturations at or above 90%. 4. Perform walking oximetry study prior to consideration for discharge from the hospital. IMPRESSIONS: 1. Acute hypoxic respiratory insufficiency secondary to submassive pulmonary embolism The patient initially presented to the hospital with shortness of breath and hemoptysis. Subsequent workup did reveal evidence of a submassive pulmonary embolism with biochemical evidence of heart strain, indicated by elevated BNP and troponins. At the current time, the patient has been anticoagulated on a heparin drip, which I would plan to continue. Pending stability, he can eventually be transitioned over to an oral anticoagulation regimen. Unless the patient develops a bleeding complication, I would plan for long-term anticoagulation. Continue to wean supplemental oxygen as tolerated. Echocardiogram did not reveal significant RV strain. 2. Hemoptysis with concern for pulmonary infarction Resolved. Clinical concern for pulmonary infarction is the etiology for the patient's hemoptysis. Continue current supportive measures as noted above. 3. Rhinovirus URI Continue current supportive measures. Wean supplemental oxygen as tolerated. 4. Elevated troponin/newly identified systolic heart failure The patient's echocardiogram did reveal evidence of newly identified systolic heart failure with severe global LV dysfunction and an ejection fraction of 15%. There was also evidence of pulmonary hypertension with a pulmonary artery systolic pressure estimated to be 52 mmHg. However, the RV was normal in size and function. Cardiology is following. Continue diuretics. This note was generated with [employer] dictation software. It may contain incorrect words, spelling, and punctuation that were not noted in checking the note before signing. Code Visit Inpatient E&M: 32280 Subs Hosp L2
--- NOTE | 2018-09-14 13:55 | PN_ITS ---
Patient Problems: Active and Suspected Problems (Last Updated 09/13/18 @ 01:09 by Mitul Sims MD) Community acquired pneumonia (Acute) Sepsis (Acute) Subjective: The patient was seen and examined at the bedside this morning. Events from the last 24 hours have been reviewed. The patient is currently afebrile, hemodynamically stable and maintaining appropriate oxygen saturations on 5 L/min via nasal cannula. The patient's niece is present at the bedside. The patient denies further hemoptysis. He did become confused overnight and a CT head was obtained this morning which was unremarkable. Objective: The patient's most recent lab work, culture data and imaging studies have all been personally reviewed. - Physical Exam General: Alert, Cooperative, - - Sitting in bedside recliner. HEENT: Atraumatic, PERRLA, Normocephalic Oral: No Gingival or Mucosal Lesions/ Ulcerations Neck: Supple, No Nodes, Trachea Midline Lungs: No rhonchi, No wheeze, No rales, Diminished Cardiovascular: Regular rate, Regular Rhythm, Normal S1, Normal S2, No murmurs Abdomen: Bowel Sounds Present, Soft, Non Tender Extremities: No clubbing, No cyanosis, Edema Skin: No breakdown Musculoskeletal: No Tenderness to Palpation of Joints or Extremities Lymphatic: No Cervical, Supraclavicular, or Inguinal Adenopathy Neurological: Cranial nerves II-XII grossly intact, Neuro grossly intact Psych/Mental Status: Normal Affect, Appropriate Vital Signs Temp Pulse Resp BP Pulse Ox 36.6 C 90 18 119/87 H 97 09/14/18 11:00 09/14/18 13:17 09/14/18 13:17 09/14/18 11:00 09/14/18 11:00 Oxygen Flow Rate (L/min) 5 Oxygen Delivery Method Nasal Cannula Weight: 272 lb 7.861 oz Body Mass Index (BMI) 42.0 Intake and Output for Last 24 Hours 09/12/18 09/13/18 09/14/18 23:59 23:59 23:59 Intake Total 3768.1 / 3768.1 761 / 761 Output Total 2475 / 2475 1200 / 1200 Balance 1293.1 / 1293.1 -439 / -439 Microbiology Past 72 Hours 09/13/18 03:39 Respiratory Panel (PCR) - Final Mucosa - Nose Rhinovirus 09/13/18 03:30 Legionella Antigen - Final Urine, Clean Catch 09/13/18 03:30 Streptococcus pneumoniae Antigen (M - Final Urine, Clean Catch Laboratory Tests Past 24 Hrs 09/13/18 09/13/18 09/13/18 00:45 13:35 16:30 WBC RBC Hgb Hct MCV MCH MCHC RDW RDW Differential Plt Count MPV Differential Comment Diff Path Review Reviewed APTT 35.4 Sodium Potassium Chloride Carbon Dioxide Anion Gap BUN Creatinine Estim Creat Clear Calc Est GFR (MDRD) Af Amer Est GFR (MDRD) Non-Af BUN/Creatinine Ratio Glucose Calcium Magnesium Troponin I 0.073 H 09/14/18 09/14/18 09/14/18 00:55 08:10 08:10 WBC 16.8 H RBC 4.15 L Hgb 9.6 L Hct 31.1 L MCV 74.9 L MCH 23.1 L MCHC 30.9 L RDW 17.7 H RDW Differential 46.4 H Plt Count 354 MPV 9.6 Differential Comment COMMENT Diff Path Review APTT 35.3 Sodium 139 Potassium 4.2 Chloride 104 Carbon Dioxide 25.0 Anion Gap 10 BUN 32 H Creatinine 1.09 Estim Creat Clear Calc 80.18 Est GFR (MDRD) Af Amer 93 Est GFR (MDRD) Non-Af 77 BUN/Creatinine Ratio 29.4 H Glucose 130 H Calcium 7.9 L Magnesium 2.4 Troponin I 09/14/18 08:10 WBC RBC Hgb Hct MCV MCH MCHC RDW RDW Differential Plt Count MPV Differential Comment Diff Path Review APTT 41.0 H Sodium Potassium Chloride Carbon Dioxide Anion Gap BUN Creatinine Estim Creat Clear Calc Est GFR (MDRD) Af Amer Est GFR (MDRD) Non-Af BUN/Creatinine Ratio Glucose Calcium Magnesium Troponin I Clinical Impression(s) from Imaging Studies Chest X-Ray 09/12/18 21:58 IMPRESSION: No acute pulmonary process, no interval change Electronically Signed: Darryl Brambila MD at 23:00 EST , Service support , Chest CT 09/13/18 00:53 IMPRESSION: Pulmonary emboli in bilateral lower lobes, right middle lobe, and bilateral upper lobes. Largest embolus is in the right inferior pulmonary artery with associated occlusion of right lower lobe pulmonary arterial branches. There is evidence for least mild right ventricular strain. Right lower lobe pulmonary consolidation, suspicious for pulmonary infarction, or less likely pneumonia. Cardiomegaly. Coronary artery atherosclerosis. Mild mediastinal and right hilar lymphadenopathy. Old granulomatous disease. Ascites within visualized upper abdomen. N.B. : The above information has been verbally conveyed by Cem Jefferson MD to MITUL SIMS MD, on 09/13/2018 03:00:13 (ET). Electronically Signed: Cem Jefferson MD at 2:13 EST , Service support , Abdomen/Pelvis CT 09/13/18 09:13 IMPRESSION: Dense consolidation in the right lower lobe. Small amount of ascites. Electronically Signed: Cristiano Warren MD at 15:17 EST Tel [phone], Service support , Brain CT 09/14/18 08:19 IMPRESSION: Normal unenhanced CT scan of the brain. Electronically Signed: Cristiano Warren MD at 9:30 EST Tel [phone], Service support , Medical Necessity - Tobacco Use Smoking Status: Former smoker Assessment/Plan All Active Problems (Last Updated 09/13/18 @ 01:09 by Mitul Sims MD) Community acquired pneumonia (Acute) Sepsis (Acute) RECOMMENDATIONS: 1. Continue heparin drip with plans to eventually transition patient to oral anticoagulation regimen. 2. Medical management of the patient's cardiomyopathy per cardiology recommendations. 3. Wean supplemental oxygen to maintain saturations at or above 90%. 4. Perform walking oximetry study prior to consideration for discharge from the hospital. IMPRESSIONS: 1. Acute hypoxic respiratory insufficiency secondary to submassive pulmonary embolism The patient initially presented to the hospital with shortness of breath and hemoptysis. Subsequent workup did reveal evidence of a submassive pulmonary embolism with biochemical evidence of heart strain, indicated by elevated BNP and troponins. At the current time, the patient has been anticoagulated on a heparin drip, which I would plan to continue. Pending stability, he can eventually be transitioned over to an oral anticoagulation regimen. Unless the patient develops a bleeding complication, I would plan for long-term anticoagulation. Continue to wean supplemental oxygen as tolerated. Echocardiogram did not reveal significant RV strain. 2. Hemoptysis with concern for pulmonary infarction Resolved. Clinical concern for pulmonary infarction is the etiology for the patient's hemoptysis. Continue current supportive measures as noted above. 3. Rhinovirus URI Continue current supportive measures. Wean supplemental oxygen as tolerated. 4. Elevated troponin/newly identified systolic heart failure The patient's echocardiogram did reveal evidence of newly identified systolic heart failure with severe global LV dysfunction and an ejection fraction of 15%. There was also evidence of pulmonary hypertension with a pulmonary artery systolic pressure estimated to be 52 mmHg. However, the RV was normal in size and function. Cardiology is following. Continue diuretics. This note was generated with [employer] dictation software. It may contain incorrect words, spelling, and punctuation that were not noted in checking the note before signing. Code Visit Inpatient E&M: 77244 Subs Hosp L2
[2018-09-14] MEDS: APIXABAN 5 MG TABLET 10 MG PO ×2 (16:44→21:09)
--- NOTE | 2018-09-14 17:16 | NURSING ---
niece in room stated she would like this RN to contact her sister, Santos, to give her updates on this patient. called santos, all questions were answered at this time. santos had extensive questions about lab work on patient. this RN took about 5-10 minutes on the phone with santos. she had no further questions at this time. this RN gave santos a contact number for this RN for additional questions if needed.
[2018-09-14 17:38] LABS: Partial Thromboplast Time 36.2 Seconds (24.1-36.2)
[2018-09-14 19:01] LABS: AST(SGOT) 232 U/L (15-37); Alanine Aminotransfer ALT/SGPT 448 U/L (16-61); Albumin, Serum 2.2 g/dL (3.2-5.0); Alkaline Phosphatase 131 U/L (45-117); Bilirubin, Direct 0.66 mg/dL (0.00-0.30); Globulin 3.8 g/dL (2.2-4.2)
[2018-09-14] MEDS: LORazepam 1 MG Tablet PO (22:25)
[2018-09-15] VITALS (33 sets, daily range): BP systolic 87–127; BP diastolic 54–89; PULSE 85–117; RESP 12–26; TEMP 36.3–37.1; O2SAT 40–100
[2018-09-15] MEDS: BENZOCAINE/MENTHOL 1 LOZENGE 2 LOZENGE MUCOUS MEM (06:10)
[2018-09-15] MEDS: Mag Hydrox/Al Hydrox/Simeth 30 ML UDC 15 ML PO (07:49)
[2018-09-15 07:54] LABS: Hematocrit 31.7 % (40-54); Hemoglobin 9.5 g/dl (13.0-16.5); Mean Corpuscular Hgb 22.7 pg (27.0-32.0); Mean Corpuscular Volume 75.7 fL (80-94); Mean Platelet Vol. 9.7 fl (6.2-12.0); Platelet Count 386 K/mm3 (150-450); RBC Distribution Width CV 17.9 % (11.6-14.6); RBC Distribution Width SD 46.1 fl (35.1-43.9); Red Blood Count 4.19 M/mm3 (4.6-6.2); White Blood Count 14.8 K/mm3 (4.4-11.0)
[2018-09-15 08:01] LABS: Scan Indicated on CBC? Y/N NO
[2018-09-15 08:15] LABS: AST(SGOT) 185 U/L (15-37); Alanine Aminotransfer ALT/SGPT 401 U/L (16-61); Albumin, Serum 2.1 g/dL (3.2-5.0); Alkaline Phosphatase 154 U/L (45-117); Anion Gap 9 (5-15); BUN 32 mg/dL (7-18); BUN/Creat Ratio 32.2 RATIO (10-20); Bilirubin, Direct 0.48 mg/dL (0.00-0.30); Calcium,Total 7.5 mg/dL (8.5-10.1); Chloride 103 mmol/L (98-107); EST Glomerular Filtration Rate 85 mL/min (>60); Est Glom Filt Rate - Afr Amer 103 mL/min (>60); Globulin 4.2 g/dL (2.2-4.2); Glucose 103 mg/dL (74-106); Magnesium 2.2 mg/dL (1.6-2.6); Protein, Total 6.3 g/dL (6.4-8.2); Sodium Level 137 mmol/L (136-145)
--- NOTE | 2018-09-15 08:27 | NURSING ---
this RN spoke to pt's niece Trish via telephone. Trish requesting update. this RN spent approx 10min updating Trish on pt. Trish stated that the roads superintendent told us yesterday that he wants to transfer the pt to another hospital. this RN explained to pt that there is no documentation of this but that this RN will follow up with physician in order to get a clear answer on whether pt is needing to be transferred. Trish thanked this RN and hung up phone.
[2018-09-15] MEDS: Carvedilol 6.25 MG Tablet PO ×2 (08:38→22:02)
[2018-09-15] MEDS: guaiFENesin 1,200 MG Tablet 1200 MG PO ×2 (08:38→22:02)
[2018-09-15] MEDS: Furosemide 40 MG/4 ML Vial IV ×2 (08:38→17:39)
[2018-09-15] MEDS: 0.9% NaCl Peripheral Flush Adult/Peds IV ×2 (08:38→17:39)
[2018-09-15] MEDS: APIXABAN 5 MG TABLET 10 MG PO ×2 (08:40→22:02)
--- NOTE | 2018-09-15 09:07 | PCM.PN.CARD ---
Subjectve: Patient seen and evaluated. Appears to be doing better this morning. Objective: Vital Signs Temp Pulse Resp BP Pulse Ox 98 F 92 23 H 127/89 H 96 09/15/18 07:00 09/15/18 07:00 09/15/18 07:00 09/15/18 07:00 09/15/18 07:00 Oxygen Flow Rate (L/min) 5 Oxygen Delivery Method Nasal Cannula Weight: 270 lb 1.06 oz Body Mass Index (BMI) 42.0 Intake and Output for Last 24 Hours 09/13/18 09/14/18 09/15/18 23:59 23:59 23:59 Intake Total 3768.1 / 3768.1 1501 / 1501 120 / 120 Output Total 2475 / 2475 2625 / 2625 300 / 300 Balance 1293.1 / 1293.1 -1124 / -1124 -180 / -180 General: Awake, Alert, Oriented x 3 HEENT: PERRL, EOMI, Sclera Non Icteric Neck: Supple, Good ROM, No Lymph Node Enlargement Lungs: Diminished Greyson Bases Cardiovascular: Regular Rhythm, Normal S1, Normal S2, No Murmurs, No Rubs, No Gallops Vascular: No Carotid Bruits, Normal Femoral Pulses, Normal Radial Pulses, Normal Dorsalis Pedal Pulse, Normal Posterior Tibial Pulses Abdomen: Bowel Sounds Present, Soft, Non Tender, No HSM, No Organomegaly Extremities: No Cyanosis, No Clubbing, Bilateral Edema +1 Neurological: No Focal Motor or Sensory Deficit Psych/Mental Status: Appropriate 09/14/18 08:10: Total Bilirubin 1.20 H, Direct Bilirubin 0.66 H 09/14/18 16:30: APTT 36.2 09/15/18 07:07: WBC 14.8 H, RBC 4.19 L, Hgb 9.5 L, Hct 31.7 L, MCV 75.7 L, MCH 22.7 L, MCHC 30.0 L, RDW 17.9 H, RDW Differential 46.1 H, Plt Count 386, MPV 9.7 09/15/18 07:07: Sodium 137, Potassium 4.0, Chloride 103, Carbon Dioxide 25.0, Anion Gap 9, BUN 32 H, Creatinine 1.00, Est GFR (MDRD) Af Amer 103, Est GFR (MDRD) Non-Af 85, BUN/Creatinine Ratio 32.2 H, Glucose 103, Calcium 7.5 L, Magnesium 2.2, Total Bilirubin 1.10 H, Direct Bilirubin 0.48 H Rhythm: EKG: ECHO: Stress Test: Cardiac Cath: PCI: CT Surgery: Holter monitor: EPS: PPM: CXR: Chest CT Scan: Medical Necessity - Tobacco Use Smoking Status: Former smoker Assessment/Plan 1. Acute systolic heart failure Patient presents with shortness of breath and has been diagnosed to have a pulmonary embolism but in addition has elevated natruretic peptide level, rales and severe left ventricular systolic dysfunction. I suspect the etiology of the above is secondary to severe hypertension. Recommendation will be to start low-dose beta-kait Diuresis with intravenous Lasix Due to previous history of angioedema I am hesitant to start an MARY inhibitor at this time or an ARB There is evidence of liver function test abnormalities which could be secondary to passive congestion. 2. Hypertension Since blood pressure is uncontrolled we will start beta-kait and titrate upwards as appropriate Also diurese with intravenous Lasix May benefit from spironolactone 3. Left ventricular apical thrombus The etiology of the above is unclear but without any evidence of infarction in the global nature I wonder whether there is an underlying coagulopathy problem. Would need to anticoagulate with heparin or a factor X inhibitor Recommend repeat echocardiogram in 3 months to reassess ventricular thrombus 4. Submassive pulmonary embolism Patient appears to have developed the above without any underlying etiology. May need to be investigated fully to make sure there is no underlying malignancy. Will strongly urge coagulopathy workup and possible input from heme Onc service Thank you for allowing me to participate in the care of your patient. Please don't hesitate to call if any issues arise
--- NOTE | 2018-09-15 09:10 | PN.CARD_ITS ---
Subjectve: Patient seen and evaluated. Appears to be doing better this morning. Objective: Vital Signs Temp Pulse Resp BP Pulse Ox 98 F 92 23 H 127/89 H 96 09/15/18 07:00 09/15/18 07:00 09/15/18 07:00 09/15/18 07:00 09/15/18 07:00 Oxygen Flow Rate (L/min) 5 Oxygen Delivery Method Nasal Cannula Weight: 270 lb 1.06 oz Body Mass Index (BMI) 42.0 Intake and Output for Last 24 Hours 09/13/18 09/14/18 09/15/18 23:59 23:59 23:59 Intake Total 3768.1 / 3768.1 1501 / 1501 120 / 120 Output Total 2475 / 2475 2625 / 2625 300 / 300 Balance 1293.1 / 1293.1 -1124 / -1124 -180 / -180 General: Awake, Alert, Oriented x 3 HEENT: PERRL, EOMI, Sclera Non Icteric Neck: Supple, Good ROM, No Lymph Node Enlargement Lungs: Diminished Greyson Bases Cardiovascular: Regular Rhythm, Normal S1, Normal S2, No Murmurs, No Rubs, No Gallops Vascular: No Carotid Bruits, Normal Femoral Pulses, Normal Radial Pulses, Normal Dorsalis Pedal Pulse, Normal Posterior Tibial Pulses Abdomen: Bowel Sounds Present, Soft, Non Tender, No HSM, No Organomegaly Extremities: No Cyanosis, No Clubbing, Bilateral Edema +1 Neurological: No Focal Motor or Sensory Deficit Psych/Mental Status: Appropriate 09/14/18 08:10: Total Bilirubin 1.20 H, Direct Bilirubin 0.66 H 09/14/18 16:30: APTT 36.2 09/15/18 07:07: WBC 14.8 H, RBC 4.19 L, Hgb 9.5 L, Hct 31.7 L, MCV 75.7 L, MCH 22.7 L, MCHC 30.0 L, RDW 17.9 H, RDW Differential 46.1 H, Plt Count 386, MPV 9.7 09/15/18 07:07: Sodium 137, Potassium 4.0, Chloride 103, Carbon Dioxide 25.0, Anion Gap 9, BUN 32 H, Creatinine 1.00, Est GFR (MDRD) Af Amer 103, Est GFR (MDRD) Non-Af 85, BUN/Creatinine Ratio 32.2 H, Glucose 103, Calcium 7.5 L, Magnesium 2.2, Total Bilirubin 1.10 H, Direct Bilirubin 0.48 H Rhythm: EKG: ECHO: Stress Test: Cardiac Cath: PCI: CT Surgery: Holter monitor: EPS: PPM: CXR: Chest CT Scan: Medical Necessity - Tobacco Use Smoking Status: Former smoker Assessment/Plan 1. Acute systolic heart failure * Patient presents with shortness of breath and has been diagnosed to have a pulmonary embolism but in addition has elevated natruretic peptide level, rales and severe left ventricular systolic dysfunction. I suspect the etiology of the above is secondary to severe hypertension. * Recommendation will be to start low-dose beta-kait * Diuresis with intravenous Lasix * Due to previous history of angioedema I am hesitant to start an MARY inhibitor at this time or an ARB * There is evidence of liver function test abnormalities which could be second giovanny to passive congestion. 2. Hypertension * Since blood pressure is uncontrolled we will start beta-kait and titrate upwards as appropriate * Also diurese with intravenous Lasix * May benefit from spironolactone * 3. Left ventricular apical thrombus * The etiology of the above is unclear but without any evidence of infarction in the global nature I wonder whether there is an underlying coagulopathy problem. * Would need to anticoagulate with heparin or a factor X inhibitor * Recommend repeat echocardiogram in 3 months to reassess ventricular thrombus * 4. Submassive pulmonary embolism * Patient appears to have developed the above without any underlying etiology. May need to be investigated fully to make sure there is no underlying malignancy. Will strongly urge coagulopathy workup and possible input from heme Onc service Thank you for allowing me to participate in the care of your patient. Please don't hesitate to call if any issues arise
--- NOTE | 2018-09-15 11:18 | CASEMGMT ---
Addendum entered by Lisa Brown 09/15/18 16:48: SW met with pt in room. Pt awake and alert and open to discussion. Talked with pt regarding d/c plan. Pt has been living in a camper for the last several years. Pt states camper is parked at a storage unit and he has a generator and solar panel that power the camper. He uses propane to heat the camper and is able to cook in the camper. SW inquired if pt needed home oxygen if the camper could sustain this and pt agreed it could. SW explored other options for d/c and pt states there are no other options. Pt does state he has support system of friends and family but he is vague when talking about them. Per RN, pt niece was present today with pt however at this time pt does not recall this. SW asked about advance directives. Pt states he has people working on this for him and refused SW assistance to complete. Pt states he did sign up for health insurance this week and he feels it will be adequate to cover needs and he will be able to afford prescriptions. Pt does have a job and plans to return to job when feeling better. SW will remain available should needs arise. ERICA Gary Original Note: Social Work Received referral from RN that pt would like to speak to someone about finances. SW met with pt in room. Pt did not open eyes but did respond to name. SW attempted to speak with pt but pt not responding. Will attempt to see pt later when more awake. ERICA Gary
--- NOTE | 2018-09-15 14:08 | PCM.PROGNOTE ---
<Dale Rahman - Last Filed: 09/15/18 14:08> Patient Problems: Active and Suspected Problems (Last Updated 09/13/18 @ 01:09 by Mitul Rubin MD) Community acquired pneumonia (Acute) Sepsis (Acute) Subjective: Still requiring O2, though he is being weaned. Still some SOB, but this has also improved. Continues to have cough with scant red blood. No fever/chills. Some CP with deep breathing/cough. Denies personal or fm hx of clots. 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 Pt concerned about having panic attacks requiring IV ativan last night. - Physical Exam General: Alert, Oriented x3, Cooperative HEENT: Atraumatic, PERRLA, EOMI, Normocephalic Neck: Supple, No JVD, Negative Carotid Bruits Lungs: Diminished Cardiovascular: Regular rate, No murmurs Abdomen: Bowel Sounds Present, Soft, Non Tender Extremities: No edema, Capillary Refill Less than 3 Seconds Skin: No rashes, No breakdown Musculoskeletal: No Tenderness to Palpation of Joints or Extremities Neurological: Cranial nerves II-XII grossly intact Psych/Mental Status: Normal Affect, Appropriate, Alert and oriented to time, place, person, mood and affect Vital Signs Temp Pulse Resp BP Pulse Ox 98.0 F 88 24 H 108/56 L 93 09/15/18 10:00 09/15/18 13:00 09/15/18 13:00 09/15/18 13:00 09/15/18 13:00 Oxygen Flow Rate (L/min) 2 Oxygen Delivery Method Nasal Cannula Weight: 270 lb 1.06 oz Body Mass Index (BMI) 42.0 Intake and Output for Last 24 Hours 09/13/18 09/14/18 09/15/18 23:59 23:59 23:59 Intake Total 3768.1 / 3768.1 1501 / 1501 770 / 770 Output Total 2475 / 2475 2625 / 2625 1125 / 1125 Balance 1293.1 / 1293.1 -1124 / -1124 -355 / -355 Microbiology Past 72 Hours 09/13/18 02:15 Blood Culture - Preliminary Blood Culture (Wb) #2 - Anticubital Right No growth in 48 hours. 09/13/18 00:45 Blood Culture - Preliminary Blood Culture (Wb) - Port No growth in 48 hours. 09/13/18 03:39 Respiratory Panel (PCR) - Final Mucosa - Nose Rhinovirus 09/13/18 03:30 Legionella Antigen - Final Urine, Clean Catch 09/13/18 03:30 Streptococcus pneumoniae Antigen (M - Final Urine, Clean Catch Laboratory Tests Past 24 Hrs 09/14/18 09/14/18 09/14/18 08:10 14:18 16:30 WBC RBC Hgb Hct MCV MCH MCHC RDW RDW Differential Plt Count MPV APTT 36.2 Sodium Potassium Chloride Carbon Dioxide Anion Gap BUN Creatinine Estim Creat Clear Calc Est GFR (MDRD) Af Amer Est GFR (MDRD) Non-Af BUN/Creatinine Ratio Glucose Calcium Magnesium Total Bilirubin 1.20 H Direct Bilirubin 0.66 H AST 232 H ALT 448 H Alkaline Phosphatase 131 H Ammonia 31.0 Total Protein 6.0 L Albumin 2.2 L Globulin 3.8 09/15/18 09/15/18 07:07 07:07 WBC 14.8 H RBC 4.19 L Hgb 9.5 L Hct 31.7 L MCV 75.7 L MCH 22.7 L MCHC 30.0 L RDW 17.9 H RDW Differential 46.1 H Plt Count 386 MPV 9.7 APTT Sodium 137 Potassium 4.0 Chloride 103 Carbon Dioxide 25.0 Anion Gap 9 BUN 32 H Creatinine 1.00 Estim Creat Clear Calc 87.40 Est GFR (MDRD) Af Amer 103 Est GFR (MDRD) Non-Af 85 BUN/Creatinine Ratio 32.2 H Glucose 103 Calcium 7.5 L Magnesium 2.2 Total Bilirubin 1.10 H Direct Bilirubin 0.48 H AST 185 H ALT 401 H Alkaline Phosphatase 154 H Ammonia Total Protein 6.3 L Albumin 2.1 L Globulin 4.2 Medical Necessity - Tobacco Use Smoking Status: Former smoker Assessment/Plan All Active Problems (Last Updated 09/13/18 @ 01:09 by Mitul Rubin MD) Community acquired pneumonia (Acute) Sepsis (Acute) 1. 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 Continue Eliquis. Probably pulmonary infarcts too, as he has hemoptysis. Wean as tolerated. Continue aerosols. He should undergo coagulopathy workup as an outpatient. Pulmonary and Cardio following. 2. Viral URI - + Rhinovirus. Continue supportive care. IS. Leukocytosis improving. No fever. 3. Systolic CHF with CM - EF 10% - cardiology following. [place] is akinetic, 1-2+ TVI, moderate LV dilation, severe global LV systolic dysfunction, PASP is 52 (mod pulm htn). COntinue IV lasix and Coreg. Defer karol/arb as he has hx of angioedema. 4. Apical Thrombus - again, eliquis. follow up Echo 3 months. 5. Ascites - CT abdomen with small ascites, no masses reported. Possibly 2/[address] brain is negative. 6. Anxiety - required prn ativan last night with bipap, c/o panic attacks. May require short term prn benzo and initiation of SSRI. DVT ppx: Eliquis DC planning: lives in [employer] powered trailer. His boss is trying to find somewhere else for him to live. He needs somewhere with electricity if he is to have a concentrator. This patient was seen by Dale Rahman PA-C under the supervision of Doctor Giovani. <Lloyd Matute - Last Filed: 09/15/18 14:58> - Physical Exam Vital Signs Temp Pulse Resp BP Pulse Ox 98.0 F 89 22 H 101/65 94 09/15/18 10:00 09/15/18 14:00 09/15/18 14:00 09/15/18 14:00 09/15/18 14:00 Oxygen Flow Rate (L/min) 2 Oxygen Delivery Method Room Air Weight: 122.5 kg Body Mass Index (BMI) 42.0 Intake and Output for Last 24 Hours 09/13/18 09/14/18 09/15/18 23:59 23:59 23:59 Intake Total 3768.1 / 3768.1 1501 / 1501 770 / 770 Output Total 2475 / 2475 2625 / 2625 1125 / 1125 Balance 1293.1 / 1293.1 -1124 / -1124 -355 / -355 Microbiology Past 72 Hours 09/13/18 02:15 Blood Culture - Preliminary Blood Culture (Wb) #2 - Anticubital Right No growth in 48 hours. 09/13/18 00:45 Blood Culture - Preliminary Blood Culture (Wb) - Port No growth in 48 hours. 09/13/18 03:39 Respiratory Panel (PCR) - Final Mucosa - Nose Rhinovirus 09/13/18 03:30 Legionella Antigen - Final Urine, Clean Catch 09/13/18 03:30 Streptococcus pneumoniae Antigen (M - Final Urine, Clean Catch Laboratory Tests Past 24 Hrs 09/14/18 09/14/18 09/15/18 08:10 16:30 07:07 WBC 14.8 H RBC 4.19 L Hgb 9.5 L Hct 31.7 L MCV 75.7 L MCH 22.7 L MCHC 30.0 L RDW 17.9 H RDW Differential 46.1 H Plt Count 386 MPV 9.7 APTT 36.2 Sodium Potassium Chloride Carbon Dioxide Anion Gap BUN Creatinine Estim Creat Clear Calc Est GFR (MDRD) Af Amer Est GFR (MDRD) Non-Af BUN/Creatinine Ratio Glucose Calcium Magnesium Total Bilirubin 1.20 H Direct Bilirubin 0.66 H AST 232 H ALT 448 H Alkaline Phosphatase 131 H Total Protein 6.0 L Albumin 2.2 L Globulin 3.8 09/15/18 07:07 WBC RBC Hgb Hct MCV MCH MCHC RDW RDW Differential Plt Count MPV APTT Sodium 137 Potassium 4.0 Chloride 103 Carbon Dioxide 25.0 Anion Gap 9 BUN 32 H Creatinine 1.00 Estim Creat Clear Calc 87.40 Est GFR (MDRD) Af Amer 103 Est GFR (MDRD) Non-Af 85 BUN/Creatinine Ratio 32.2 H Glucose 103 Calcium 7.5 L Magnesium 2.2 Total Bilirubin 1.10 H Direct Bilirubin 0.48 H AST 185 H ALT 401 H Alkaline Phosphatase 154 H Total Protein 6.3 L Albumin 2.1 L Globulin 4.2 Assessment/Plan This patient was seen in conjunction with Dale Rahman PA-C . I have independently interviewed and examined the patient and reviewed pertinent historical, laboratory, and other data. Please refer to Dale Rahman PA-C note for details of this patient's presentation, findings, and recommendations. I have reviewed Dale Rahman PA-C note and concur with documented findings. In brief, Patient is a 48-year-old gentleman who presented with progressive shortness of breath imaging studies on admission demonstrated pulmonary emboli in bilateral lower lobes, right middle lobe, and bilateral upper lobes. Largest embolus is in the right inferior pulmonary artery with associated occlusion of right lower lobe pulmonary arterial branches. There is evidence for least mild right ventricular strain. Right lower lobe pulmonary consolidation, suspicious for pulmonary infarction patient started on heparin and admitted for subsequent inpatient management 09/15/2018: Patient seen switch from heparin to Eliquis on 09/14/2018 Physical Examination: GENERAL: Somewhat dyspneic at rest HEENT: Atraumatic; moist oral mucosa EYES; Anicteric, Normal Conjunctiva NECK; supple, normal thyroid, no distended JVD. RESPIRATORY: Diminished to auscultation bilaterally, CARDIOVASCULAR: Regular S1 S2, no audible murmurs GI: Distended non-tender, normoactive bowel sounds, : No Renal angle tenderness; EXTREMITIES: Plus bipedal edema, no clubbing, no cyanosis. MUSCULOSKELETAL: No Joint Tenderness; no muscle waisting NEURO: Awake; no lateralizing signs. SKIN: No Rash PSYCH; Normal affect Assessment: 1. Submassive bilateral pulmonary embolism. CT of the chest obtained on admission demonstrated pulmonary emboli in bilateral lower lobes, right middle lobe, and bilateral upper lobes. Largest embolus is in the right inferior pulmonary artery with associated occlusion of right lower lobe pulmonary arterial branches. Patient was also found to have right lower lobe pulmonary consolidation consistent with infection patient started on heparin drip admitted to a monitored bed for subsequent management will consultation placed to Dr. Lucio with pulmonary medicine 2D echo and bilateral venous duplex ordered patient remains on heparin 2. Acute pulmonary infarction with hemoptysis the underlying etiology patient submassive pulmonary embolism is being managed as discussed above 3. Acute systolic heart failure. Patient 2D echo obtained as part of workup of his pulmonary embolism demonstrated EF of 10% as well as the presence of a left apical thrombus. Consultation was placed to cardiology patient seen by Dr. Camara is noted recommendations reviewed 4. Hypertension-blood pressure controlled, 5. Ascites order CT of the abdomen with contrast to rule out underlying malignancy; CT of the abdomen demonstrated only small amount of ascites 6. Anxiety disorder 7. Morbid obesity with BMI of 42.1 8. Suspected sleep apnea patient undergo sleep study following his discharge Recommendations: 1. I have discussed the results of my overview and impressions with the patient 2. Options for management were reviewed Code Visit Inpatient E&M: 47138 Subs Hosp L2
--- NOTE | 2018-09-15 14:47 | PCM.PROGNOTE ---
Patient Problems: Active and Suspected Problems (Last Updated 09/13/18 @ 01:09 by Mitul Sims MD) Community acquired pneumonia (Acute) Sepsis (Acute) Subjective: The patient was seen and examined at the bedside this morning. Events from the last 24 hours have been reviewed. The patient is currently afebrile, hemodynamically stable and maintaining appropriate oxygen saturations on 2 L/min via nasal cannula. No further hemoptysis noted. Objective: The patient's most recent lab work, culture data and imaging studies have all been personally reviewed. Respiratory viral panel was positive for rhinovirus. - Physical Exam General: Alert, Cooperative, No apparent distress HEENT: Atraumatic, PERRLA, Normocephalic Oral: No Gingival or Mucosal Lesions/ Ulcerations Neck: Supple, No Nodes, Trachea Midline Lungs: No rhonchi, No wheeze, No rales, Diminished Cardiovascular: Regular rate, Regular Rhythm, Normal S1, Normal S2, No murmurs Abdomen: Bowel Sounds Present, Soft, Non Tender Extremities: No clubbing, No cyanosis, Capillary Refill Less than 3 Seconds, Edema Skin: No breakdown Musculoskeletal: No Muscle Wasting Lymphatic: No Cervical, Supraclavicular, or Inguinal Adenopathy Neurological: Cranial nerves II-XII grossly intact, Neuro grossly intact Psych/Mental Status: Normal Affect, Appropriate Vital Signs Temp Pulse Resp BP Pulse Ox 36.7 C 89 22 H 101/65 94 09/15/18 10:00 09/15/18 14:00 09/15/18 14:00 09/15/18 14:00 09/15/18 14:00 Oxygen Flow Rate (L/min) 2 Oxygen Delivery Method Room Air Weight: 270 lb 1.06 oz Body Mass Index (BMI) 42.0 Intake and Output for Last 24 Hours 09/13/18 09/14/18 09/15/18 23:59 23:59 23:59 Intake Total 3768.1 / 3768.1 1501 / 1501 770 / 770 Output Total 2475 / 2475 2625 / 2625 1125 / 1125 Balance 1293.1 / 1293.1 -1124 / -1124 -355 / -355 Microbiology Past 72 Hours 09/13/18 02:15 Blood Culture - Preliminary Blood Culture (Wb) #2 - Anticubital Right No growth in 48 hours. 09/13/18 00:45 Blood Culture - Preliminary Blood Culture (Wb) - Port No growth in 48 hours. 09/13/18 03:39 Respiratory Panel (PCR) - Final Mucosa - Nose Rhinovirus 09/13/18 03:30 Legionella Antigen - Final Urine, Clean Catch 09/13/18 03:30 Streptococcus pneumoniae Antigen (M - Final Urine, Clean Catch Laboratory Tests Past 24 Hrs 09/14/18 09/14/18 09/14/18 08:10 14:18 16:30 WBC RBC Hgb Hct MCV MCH MCHC RDW RDW Differential Plt Count MPV APTT 36.2 Sodium Potassium Chloride Carbon Dioxide Anion Gap BUN Creatinine Estim Creat Clear Calc Est GFR (MDRD) Af Amer Est GFR (MDRD) Non-Af BUN/Creatinine Ratio Glucose Calcium Magnesium Total Bilirubin 1.20 H Direct Bilirubin 0.66 H AST 232 H ALT 448 H Alkaline Phosphatase 131 H Ammonia 31.0 Total Protein 6.0 L Albumin 2.2 L Globulin 3.8 09/15/18 09/15/18 07:07 07:07 WBC 14.8 H RBC 4.19 L Hgb 9.5 L Hct 31.7 L MCV 75.7 L MCH 22.7 L MCHC 30.0 L RDW 17.9 H RDW Differential 46.1 H Plt Count 386 MPV 9.7 APTT Sodium 137 Potassium 4.0 Chloride 103 Carbon Dioxide 25.0 Anion Gap 9 BUN 32 H Creatinine 1.00 Estim Creat Clear Calc 87.40 Est GFR (MDRD) Af Amer 103 Est GFR (MDRD) Non-Af 85 BUN/Creatinine Ratio 32.2 H Glucose 103 Calcium 7.5 L Magnesium 2.2 Total Bilirubin 1.10 H Direct Bilirubin 0.48 H AST 185 H ALT 401 H Alkaline Phosphatase 154 H Ammonia Total Protein 6.3 L Albumin 2.1 L Globulin 4.2 Clinical Impression(s) from Imaging Studies Chest X-Ray 09/12/18 21:58 IMPRESSION: No acute pulmonary process, no interval change Electronically Signed: Darryl Brambila MD at 23:00 EST , Service support , Chest CT 09/13/18 00:53 IMPRESSION: Pulmonary emboli in bilateral lower lobes, right middle lobe, and bilateral upper lobes. Largest embolus is in the right inferior pulmonary artery with associated occlusion of right lower lobe pulmonary arterial branches. There is evidence for least mild right ventricular strain. Right lower lobe pulmonary consolidation, suspicious for pulmonary infarction, or less likely pneumonia. Cardiomegaly. Coronary artery atherosclerosis. Mild mediastinal and right hilar lymphadenopathy. Old granulomatous disease. Ascites within visualized upper abdomen. N.B. : The above information has been verbally conveyed by Cem Jefferson MD to MITUL SIMS MD, on 09/13/2018 03:00:13 (ET). Electronically Signed: Cem Jefferson MD at 2:13 EST , Service support , Abdomen/Pelvis CT 09/13/18 09:13 IMPRESSION: Dense consolidation in the right lower lobe. Small amount of ascites. Electronically Signed: Cristiano Warren MD at 15:17 EST Tel [phone], Service support , Brain CT 09/14/18 08:19 IMPRESSION: Normal unenhanced CT scan of the brain. Electronically Signed: Cristiano Warren MD at 9:30 EST Tel [phone], Service support , Medical Necessity - Tobacco Use Smoking Status: Former smoker Assessment/Plan All Active Problems (Last Updated 09/13/18 @ 01:09 by Mitul Sims MD) Community acquired pneumonia (Acute) Sepsis (Acute) RECOMMENDATIONS: 1. Continue Eliquis as ordered. 2. Medical management of the patient's cardiomyopathy per cardiology recommendations. 3. Wean supplemental oxygen to maintain saturations at or above 90%. 4. Perform walking oximetry study prior to consideration for discharge from the hospital. IMPRESSIONS: 1. Acute hypoxic respiratory insufficiency secondary to submassive pulmonary embolism The patient initially presented to the hospital with shortness of breath and hemoptysis. Subsequent workup did reveal evidence of a submassive pulmonary embolism with biochemical evidence of heart strain, indicated by elevated BNP and troponins. The patient was initially anticoagulated on a heparin drip. He has since been transitioned to Eliquis. Unless the patient develops a bleeding complication, I would plan for long-term anticoagulation. Continue to wean supplemental oxygen as tolerated. Echocardiogram did not reveal significant RV strain. 2. Hemoptysis with concern for pulmonary infarction Resolved. Clinical concern for pulmonary infarction is the etiology for the patient's hemoptysis. Continue current supportive measures as noted above. 3. Rhinovirus URI Continue current supportive measures. Wean supplemental oxygen as tolerated. 4. Elevated troponin/newly identified systolic heart failure The patient's echocardiogram did reveal evidence of newly identified systolic heart failure with severe global LV dysfunction and an ejection fraction of 15%. There was also evidence of pulmonary hypertension with a pulmonary artery systolic pressure estimated to be 52 mmHg. However, the RV was normal in size and function. Cardiology is following. Continue diuretics. This note was generated with [employer] dictation software. It may contain incorrect words, spelling, and punctuation that were not noted in checking the note before signing. Code Visit Inpatient E&M: 06405 Subs Hosp L2
--- NOTE | 2018-09-15 14:51 | PN_ITS ---
Patient Problems: Active and Suspected Problems (Last Updated 09/13/18 @ 01:09 by Mitul Sims MD) Community acquired pneumonia (Acute) Sepsis (Acute) Subjective: The patient was seen and examined at the bedside this morning. Events from the last 24 hours have been reviewed. The patient is currently afebrile, hemodynamically stable and maintaining appropriate oxygen saturations on 2 L/min via nasal cannula. No further hemoptysis noted. Objective: The patient's most recent lab work, culture data and imaging studies have all been personally reviewed. Respiratory viral panel was positive for rhinovirus. - Physical Exam General: Alert, Cooperative, No apparent distress HEENT: Atraumatic, PERRLA, Normocephalic Oral: No Gingival or Mucosal Lesions/ Ulcerations Neck: Supple, No Nodes, Trachea Midline Lungs: No rhonchi, No wheeze, No rales, Diminished Cardiovascular: Regular rate, Regular Rhythm, Normal S1, Normal S2, No murmurs Abdomen: Bowel Sounds Present, Soft, Non Tender Extremities: No clubbing, No cyanosis, Capillary Refill Less than 3 Seconds, Edema Skin: No breakdown Musculoskeletal: No Muscle Wasting Lymphatic: No Cervical, Supraclavicular, or Inguinal Adenopathy Neurological: Cranial nerves II-XII grossly intact, Neuro grossly intact Psych/Mental Status: Normal Affect, Appropriate Vital Signs Temp Pulse Resp BP Pulse Ox 36.7 C 89 22 H 101/65 94 09/15/18 10:00 09/15/18 14:00 09/15/18 14:00 09/15/18 14:00 09/15/18 14:00 Oxygen Flow Rate (L/min) 2 Oxygen Delivery Method Room Air Weight: 270 lb 1.06 oz Body Mass Index (BMI) 42.0 Intake and Output for Last 24 Hours 09/13/18 09/14/18 09/15/18 23:59 23:59 23:59 Intake Total 3768.1 / 3768.1 1501 / 1501 770 / 770 Output Total 2475 / 2475 2625 / 2625 1125 / 1125 Balance 1293.1 / 1293.1 -1124 / -1124 -355 / -355 Microbiology Past 72 Hours 09/13/18 02:15 Blood Culture - Preliminary Blood Culture (Wb) #2 - Anticubital Right No growth in 48 hours. 09/13/18 00:45 Blood Culture - Preliminary Blood Culture (Wb) - Port No growth in 48 hours. 09/13/18 03:39 Respiratory Panel (PCR) - Final Mucosa - Nose Rhinovirus 09/13/18 03:30 Legionella Antigen - Final Urine, Clean Catch 09/13/18 03:30 Streptococcus pneumoniae Antigen (M - Final Urine, Clean Catch Laboratory Tests Past 24 Hrs 09/14/18 09/14/18 09/14/18 08:10 14:18 16:30 WBC RBC Hgb Hct MCV MCH MCHC RDW RDW Differential Plt Count MPV APTT 36.2 Sodium Potassium Chloride Carbon Dioxide Anion Gap BUN Creatinine Estim Creat Clear Calc Est GFR (MDRD) Af Amer Est GFR (MDRD) Non-Af BUN/Creatinine Ratio Glucose Calcium Magnesium Total Bilirubin 1.20 H Direct Bilirubin 0.66 H AST 232 H ALT 448 H Alkaline Phosphatase 131 H Ammonia 31.0 Total Protein 6.0 L Albumin 2.2 L Globulin 3.8 09/15/18 09/15/18 07:07 07:07 WBC 14.8 H RBC 4.19 L Hgb 9.5 L Hct 31.7 L MCV 75.7 L MCH 22.7 L MCHC 30.0 L RDW 17.9 H RDW Differential 46.1 H Plt Count 386 MPV 9.7 APTT Sodium 137 Potassium 4.0 Chloride 103 Carbon Dioxide 25.0 Anion Gap 9 BUN 32 H Creatinine 1.00 Estim Creat Clear Calc 87.40 Est GFR (MDRD) Af Amer 103 Est GFR (MDRD) Non-Af 85 BUN/Creatinine Ratio 32.2 H Glucose 103 Calcium 7.5 L Magnesium 2.2 Total Bilirubin 1.10 H Direct Bilirubin 0.48 H AST 185 H ALT 401 H Alkaline Phosphatase 154 H Ammonia Total Protein 6.3 L Albumin 2.1 L Globulin 4.2 Clinical Impression(s) from Imaging Studies Chest X-Ray 09/12/18 21:58 IMPRESSION: No acute pulmonary process, no interval change Electronically Signed: Darryl Brambila MD at 23:00 EST , Service support , Chest CT 09/13/18 00:53 IMPRESSION: Pulmonary emboli in bilateral lower lobes, right middle lobe, and bilateral upper lobes. Largest embolus is in the right inferior pulmonary artery with associated occlusion of right lower lobe pulmonary arterial branches. There is evidence for least mild right ventricular strain. Right lower lobe pulmonary consolidation, suspicious for pulmonary infarction, or less likely pneumonia. Cardiomegaly. Coronary artery atherosclerosis. Mild mediastinal and right hilar lymphadenopathy. Old granulomatous disease. Ascites within visualized upper abdomen. N.B. : The above information has been verbally conveyed by Cem Jefferson MD to MITUL SIMS MD, on 09/13/2018 03:00:13 (ET). Electronically Signed: Cem Jefefrson MD at 2:13 EST , Service support , Abdomen/Pelvis CT 09/13/18 09:13 IMPRESSION: Dense consolidation in the right lower lobe. Small amount of ascites. Electronically Signed: Cristiano Warren MD at 15:17 EST Tel [phone], Service support , Brain CT 09/14/18 08:19 IMPRESSION: Normal unenhanced CT scan of the brain. Electronically Signed: Cristiano Warren MD at 9:30 EST Tel [phone], Service support , Medical Necessity - Tobacco Use Smoking Status: Former smoker Assessment/Plan All Active Problems (Last Updated 09/13/18 @ 01:09 by Mitul Sims MD) Community acquired pneumonia (Acute) Sepsis (Acute) RECOMMENDATIONS: 1. Continue Eliquis as ordered. 2. Medical management of the patient's cardiomyopathy per cardiology recommendations. 3. Wean supplemental oxygen to maintain saturations at or above 90%. 4. Perform walking oximetry study prior to consideration for discharge from the hospital. IMPRESSIONS: 1. Acute hypoxic respiratory insufficiency secondary to submassive pulmonary embolism The patient initially presented to the hospital with shortness of breath and hemoptysis. Subsequent workup did reveal evidence of a submassive pulmonary embolism with biochemical evidence of heart strain, indicated by elevated BNP and troponins. The patient was initially anticoagulated on a heparin drip. He has since been transitioned to Eliquis. Unless the patient develops a bleeding complication, I would plan for long-term anticoagulation. Continue to wean supplemental oxygen as tolerated. Echocardiogram did not reveal significant RV strain. 2. Hemoptysis with concern for pulmonary infarction Resolved. Clinical concern for pulmonary infarction is the etiology for the patient's hemoptysis. Continue current supportive measures as noted above. 3. Rhinovirus URI Continue current supportive measures. Wean supplemental oxygen as tolerated. 4. Elevated troponin/newly identified systolic heart failure The patient's echocardiogram did reveal evidence of newly identified systolic heart failure with severe global LV dysfunction and an ejection fraction of 15%. There was also evidence of pulmonary hypertension with a pulmonary artery systolic pressure estimated to be 52 mmHg. However, the RV was normal in size and function. Cardiology is following. Continue diuretics. This note was generated with [employer] dictation software. It may contain incorrect words, spelling, and punctuation that were not noted in checking the note before signing. Code Visit Inpatient E&M: 23252 Subs Hosp L2
[2018-09-15] MEDS: Ipratropium/Albuterol Sulfate 3 ML AMPUL.NEB INHALATION (19:28)
[2018-09-16] VITALS (22 sets, daily range): BP systolic 92–122; BP diastolic 55–91; PULSE 83–98; RESP 16–28; TEMP 36.4–36.7; O2SAT 93–100
--- NOTE | 2018-09-16 07:09 | PN_ITS ---
Patient Problems: Active and Suspected Problems (Last Updated 09/13/18 @ 01:09 by Mitul Sims MD) Community acquired pneumonia (Acute) Sepsis (Acute) Subjective: The patient was seen and examined at the bedside this morning. Events from the last 24 hours have been reviewed. The patient is currently afebrile, hemodynamically stable and maintaining appropriate oxygen saturations on 2 L/min via nasal cannula. The patient does report having experienced episodic hemoptysis once again. Objective: The patient's most recent lab work, culture data and imaging studies have all been personally reviewed. - Physical Exam General: Alert, Cooperative, No apparent distress HEENT: Atraumatic, PERRLA, Normocephalic Oral: No Gingival or Mucosal Lesions/ Ulcerations Neck: Supple, No Nodes, Trachea Midline Lungs: No rhonchi, No wheeze, No rales, Diminished Cardiovascular: Regular rate, Regular Rhythm, Normal S1, Normal S2, No murmurs Abdomen: Bowel Sounds Present, Soft, Non Tender, Non-Distended Extremities: No clubbing, No cyanosis, Edema Skin: No breakdown Musculoskeletal: No Tenderness to Palpation of Joints or Extremities Lymphatic: No Cervical, Supraclavicular, or Inguinal Adenopathy Neurological: Neuro grossly intact Psych/Mental Status: Normal Affect, Appropriate Vital Signs Temp Pulse Resp BP Pulse Ox 36.6 C 86 17 106/66 97 09/16/18 02:28 09/16/18 07:00 09/16/18 07:00 09/16/18 07:00 09/16/18 07:00 Oxygen Flow Rate (L/min) 2 Oxygen Delivery Method Nasal Cannula Weight: 270 lb 1.06 oz Body Mass Index (BMI) 42.0 Intake and Output for Last 24 Hours 09/14/18 09/15/18 09/16/18 23:59 23:59 23:59 Intake Total 1501 / 1501 1130 / 1130 1410 / 1410 Output Total 2625 / 2625 1575 / 1575 1250 / 1250 Balance -1124 / -1124 -445 / -445 160 / 160 Microbiology Past 72 Hours 09/13/18 02:15 Blood Culture - Preliminary Blood Culture (Wb) #2 - Anticubital Right No growth in 48 hours. 09/13/18 00:45 Blood Culture - Preliminary Blood Culture (Wb) - Port No growth in 48 hours. 09/13/18 03:39 Respiratory Panel (PCR) - Final Mucosa - Nose Rhinovirus 09/13/18 03:30 Legionella Antigen - Final Urine, Clean Catch 09/13/18 03:30 Streptococcus pneumoniae Antigen (M - Final Urine, Clean Catch Laboratory Tests Past 24 Hrs 09/15/18 09/15/18 07:07 07:07 WBC 14.8 H RBC 4.19 L Hgb 9.5 L Hct 31.7 L MCV 75.7 L MCH 22.7 L MCHC 30.0 L RDW 17.9 H RDW Differential 46.1 H Plt Count 386 MPV 9.7 Sodium 137 Potassium 4.0 Chloride 103 Carbon Dioxide 25.0 Anion Gap 9 BUN 32 H Creatinine 1.00 Estim Creat Clear Calc 87.40 Est GFR (MDRD) Af Amer 103 Est GFR (MDRD) Non-Af 85 BUN/Creatinine Ratio 32.2 H Glucose 103 Calcium 7.5 L Magnesium 2.2 Total Bilirubin 1.10 H Direct Bilirubin 0.48 H AST 185 H ALT 401 H Alkaline Phosphatase 154 H Total Protein 6.3 L Albumin 2.1 L Globulin 4.2 Clinical Impression(s) from Imaging Studies Chest X-Ray 09/12/18 21:58 IMPRESSION: No acute pulmonary process, no interval change Electronically Signed: Darryl Brambila MD at 23:00 EST , Service support , Chest CT 09/13/18 00:53 IMPRESSION: Pulmonary emboli in bilateral lower lobes, right middle lobe, and bilateral upper lobes. Largest embolus is in the right inferior pulmonary artery with associated occlusion of right lower lobe pulmonary arterial branches. There is evidence for least mild right ventricular strain. Right lower lobe pulmonary consolidation, suspicious for pulmonary infarction, or less likely pneumonia. Cardiomegaly. Coronary artery atherosclerosis. Mild mediastinal and right hilar lymphadenopathy. Old granulomatous disease. Ascites within visualized upper abdomen. N.B. : The above information has been verbally conveyed by Cem Jefferson MD to MITUL SIMS MD, on 09/13/2018 03:00:13 (ET). Electronically Signed: Cem Jefferson MD at 2:13 EST , Service support , Abdomen/Pelvis CT 09/13/18 09:13 IMPRESSION: Dense consolidation in the right lower lobe. Small amount of ascites. Electronically Signed: Cristiano Warren MD at 15:17 EST Tel [phone], Service support , Brain CT 09/14/18 08:19 IMPRESSION: Normal unenhanced CT scan of the brain. Electronically Signed: Cristiano Warren MD at 9:30 EST Tel [phone], Service support , Medical Necessity - Tobacco Use Smoking Status: Former smoker Assessment/Plan All Active Problems (Last Updated 09/13/18 @ 01:09 by Mitul Sims MD) Community acquired pneumonia (Acute) Sepsis (Acute) RECOMMENDATIONS: 1. Continue Eliquis as ordered. 2. Medical management of the patient's cardiomyopathy per cardiology recommendations. 3. Wean supplemental oxygen to maintain saturations at or above 90%. 4. Perform walking oximetry study prior to consideration for discharge from the hospital. 5. Follow-up in the pulmonary medicine clinic within 2 weeks of his discharge from the hospital. IMPRESSIONS: 1. Acute hypoxic respiratory insufficiency secondary to submassive pulmonary embolism The patient initially presented to the hospital with shortness of breath and hemoptysis. Subsequent workup did reveal evidence of a submassive pulmonary embolism with biochemical evidence of heart strain, indicated by elevated BNP and troponins. The patient was initially anticoagulated on a heparin drip. He has since been transitioned to Eliquis. Unless the patient develops a bleeding complication, I would plan for long-term anticoagulation. Continue to wean supplemental oxygen as tolerated. Echocardiogram did not reveal significant RV strain. 2. Hemoptysis with concern for pulmonary infarction Resolved. Clinical concern for pulmonary infarction is the etiology for the patient's hemoptysis. Continue current supportive measures as noted above. 3. Rhinovirus URI Continue current supportive measures. Wean supplemental oxygen as tolerated. 4. Elevated troponin/newly identified systolic heart failure The patient's echocardiogram did reveal evidence of newly identified systolic heart failure with severe global LV dysfunction and an ejection fraction of 15%. There was also evidence of pulmonary hypertension with a pulmonary artery systolic pressure estimated to be 52 mmHg. However, the RV was normal in size and function. Cardiology is following. Continue diuretics. This note was generated with [employer] software. It may contain incorrect words, spelling, and punctuation that were not noted in checking the note before signing. Code Visit Inpatient E&M: 66779 Subs Hosp L2
--- NOTE | 2018-09-16 07:18 | PCM.PN.CARD ---
Subjectve: Patient seen and evaluated. Sleeping in chair. No obvious complaints at this time. Objective: Vital Signs Temp Pulse Resp BP Pulse Ox 97.9 F 86 17 106/66 97 09/16/18 02:28 09/16/18 07:00 09/16/18 07:00 09/16/18 07:00 09/16/18 07:00 Oxygen Flow Rate (L/min) 2 Oxygen Delivery Method Nasal Cannula Weight: 270 lb 1.06 oz Body Mass Index (BMI) 42.0 Intake and Output for Last 24 Hours 09/14/18 09/15/18 09/16/18 23:59 23:59 23:59 Intake Total 1501 / 1501 1130 / 1130 1410 / 1410 Output Total 2625 / 2625 1575 / 1575 1250 / 1250 Balance -1124 / -1124 -445 / -445 160 / 160 General: Awake, Alert, Oriented x 3 HEENT: PERRL, EOMI, Sclera Non Icteric Neck: Supple, Good ROM, No Lymph Node Enlargement Lungs: Clear to auscultation Cardiovascular: Regular Rhythm, Normal S1, Normal S2, No Murmurs, No Rubs, No Gallops Vascular: No Carotid Bruits, Normal Femoral Pulses, Normal Radial Pulses, Normal Dorsalis Pedal Pulse, Normal Posterior Tibial Pulses Abdomen: Bowel Sounds Present, Soft, Non Tender, No HSM, No Organomegaly Extremities: No Cyanosis, No Clubbing, No edema Neurological: No Focal Motor or Sensory Deficit 09/15/18 07:07: WBC 14.8 H, RBC 4.19 L, Hgb 9.5 L, Hct 31.7 L, MCV 75.7 L, MCH 22.7 L, MCHC 30.0 L, RDW 17.9 H, RDW Differential 46.1 H, Plt Count 386, MPV 9.7 09/15/18 07:07: Sodium 137, Potassium 4.0, Chloride 103, Carbon Dioxide 25.0, Anion Gap 9, BUN 32 H, Creatinine 1.00, Est GFR (MDRD) Af Amer 103, Est GFR (MDRD) Non-Af 85, BUN/Creatinine Ratio 32.2 H, Glucose 103, Calcium 7.5 L, Magnesium 2.2, Total Bilirubin 1.10 H, Direct Bilirubin 0.48 H Rhythm: EKG: ECHO: Stress Test: Cardiac Cath: PCI: CT Surgery: Holter monitor: EPS: PPM: CXR: Chest CT Scan: Medical Necessity - Tobacco Use Smoking Status: Former smoker Assessment/Plan 1. Acute systolic heart failure Patient presents with shortness of breath and has been diagnosed to have a pulmonary embolism but in addition has elevated natruretic peptide level, rales and severe left ventricular systolic dysfunction. I suspect the etiology of the above is secondary to severe hypertension. Recommendation will be to continue low-dose beta-kait Diuresis with intravenous Lasix then switched to oral Lasix tomorrow and hopefully discharge Due to previous history of angioedema I am hesitant to start an MARY inhibitor at this time or an ARB There is evidence of liver function test abnormalities which could be secondary to passive congestion. Appears to be improving 2. Hypertension Since blood pressure is uncontrolled we will start beta-kait and titrate upwards as appropriate Also diurese with intravenous Lasix May benefit from spironolactone 3. Left ventricular apical thrombus The etiology of the above is unclear but without any evidence of infarction in the global nature I wonder whether there is an underlying coagulopathy problem. Would continue to anticoagulate factor X inhibitor Recommend repeat echocardiogram in 3 months to reassess ventricular thrombus 4. Submassive pulmonary embolism Patient appears to have developed the above without any underlying etiology. May need to be investigated fully to make sure there is no underlying malignancy. Will strongly urge coagulopathy workup and possible input from heme Onc service Thank you for allowing me to participate in the care of your patient. Please don't hesitate to call if any issues arise
--- NOTE | 2018-09-16 07:23 | PN.CARD_ITS ---
Subjectve: Patient seen and evaluated. Sleeping in chair. No obvious complaints at this time. Objective: Vital Signs Temp Pulse Resp BP Pulse Ox 97.9 F 86 17 106/66 97 09/16/18 02:28 09/16/18 07:00 09/16/18 07:00 09/16/18 07:00 09/16/18 07:00 Oxygen Flow Rate (L/min) 2 Oxygen Delivery Method Nasal Cannula Weight: 270 lb 1.06 oz Body Mass Index (BMI) 42.0 Intake and Output for Last 24 Hours 09/14/18 09/15/18 09/16/18 23:59 23:59 23:59 Intake Total 1501 / 1501 1130 / 1130 1410 / 1410 Output Total 2625 / 2625 1575 / 1575 1250 / 1250 Balance -1124 / -1124 -445 / -445 160 / 160 General: Awake, Alert, Oriented x 3 HEENT: PERRL, EOMI, Sclera Non Icteric Neck: Supple, Good ROM, No Lymph Node Enlargement Lungs: Clear to auscultation Cardiovascular: Regular Rhythm, Normal S1, Normal S2, No Murmurs, No Rubs, No Gallops Vascular: No Carotid Bruits, Normal Femoral Pulses, Normal Radial Pulses, Normal Dorsalis Pedal Pulse, Normal Posterior Tibial Pulses Abdomen: Bowel Sounds Present, Soft, Non Tender, No HSM, No Organomegaly Extremities: No Cyanosis, No Clubbing, No edema Neurological: No Focal Motor or Sensory Deficit 09/15/18 07:07: WBC 14.8 H, RBC 4.19 L, Hgb 9.5 L, Hct 31.7 L, MCV 75.7 L, MCH 22.7 L, MCHC 30.0 L, RDW 17.9 H, RDW Differential 46.1 H, Plt Count 386, MPV 9.7 09/15/18 07:07: Sodium 137, Potassium 4.0, Chloride 103, Carbon Dioxide 25.0, Anion Gap 9, BUN 32 H, Creatinine 1.00, Est GFR (MDRD) Af Amer 103, Est GFR (MDRD) Non-Af 85, BUN/Creatinine Ratio 32.2 H, Glucose 103, Calcium 7.5 L, Magnesium 2.2, Total Bilirubin 1.10 H, Direct Bilirubin 0.48 H Rhythm: EKG: ECHO: Stress Test: Cardiac Cath: PCI: CT Surgery: Holter monitor: EPS: PPM: CXR: Chest CT Scan: Medical Necessity - Tobacco Use Smoking Status: Former smoker Assessment/Plan 1. Acute systolic heart failure * Patient presents with shortness of breath and has been diagnosed to have a pulmonary embolism but in addition has elevated natruretic peptide level, rales and severe left ventricular systolic dysfunction. I suspect the etiology of the above is secondary to severe hypertension. * Recommendation will be to continue low-dose beta-kait * Diuresis with intravenous Lasix then switched to oral Lasix tomorrow and hopefully discharge * Due to previous history of angioedema I am hesitant to start an MARY inhibitor at this time or an ARB * There is evidence of liver function test abnormalities which could be secondary to passive congestion. Appears to be improving 2. Hypertension * Since blood pressure is uncontrolled we will start beta-kait and titrate upwards as appropriate * Also diurese with intravenous Lasix * May benefit from spironolactone * 3. Left ventricular apical thrombus * The etiology of the above is unclear but without any evidence of infarction in the global nature I wonder whether there is an underlying coagulopathy problem. * Would continue to anticoagulate factor X inhibitor * Recommend repeat echocardiogram in 3 months to reassess ventricular thrombus * 4. Submassive pulmonary embolism * Patient appears to have developed the above without any underlying etiology. May need to be investigated fully to make sure there is no underlying malignancy. Will strongly urge coagulopathy workup and possible input from heme Onc service Thank you for allowing me to participate in the care of your patient. Please don't hesitate to call if any issues arise
[2018-09-16] MEDS: Ipratropium/Albuterol Sulfate 3 ML AMPUL.NEB INHALATION ×3 (07:37→21:44)
[2018-09-16 08:12] LABS: AST(SGOT) 99 U/L (15-37); Alanine Aminotransfer ALT/SGPT 295 U/L (16-61); Alkaline Phosphatase 142 U/L (45-117); Anion Gap 8 (5-15); BUN 31 mg/dL (7-18); BUN/Creat Ratio 34.6 RATIO (10-20); Bilirubin, Direct 0.33 mg/dL (0.00-0.30); Calcium,Total 7.8 mg/dL (8.5-10.1); Chloride 103 mmol/L (98-107); EST Glomerular Filtration Rate 96 mL/min (>60); Est Glom Filt Rate - Afr Amer 117 mL/min (>60); Estimated Creatinine Clearance 97.11 ml/min; Globulin 3.9 g/dL (2.2-4.2); Glucose 132 mg/dL (74-106); Potassium 3.6 mmol/L (3.5-5.1); Protein, Total 5.9 g/dL (6.4-8.2); Sodium Level 138 mmol/L (136-145)
[2018-09-16] MEDS: guaiFENesin 1,200 MG Tablet 1200 MG PO ×2 (09:04→21:24)
[2018-09-16] MEDS: Carvedilol 6.25 MG Tablet PO ×2 (09:04→21:24)
[2018-09-16] MEDS: Furosemide 40 MG/4 ML Vial IV ×2 (09:04→17:37)
[2018-09-16] MEDS: APIXABAN 5 MG TABLET 10 MG PO ×2 (09:04→21:24)
[2018-09-16] MEDS: 0.9% NaCl Peripheral Flush Adult/Peds IV ×2 (09:04→17:37)
[2018-09-16] MEDS: BENZOCAINE/MENTHOL 1 LOZENGE 2 LOZENGE MUCOUS MEM ×2 (09:57→21:24)
--- NOTE | 2018-09-16 10:53 | PCM.PN.HOSP ---
Patient Problems: Active and Suspected Problems (Last Updated 09/13/18 @ 01:09 by Mitul Rbuin MD) Community acquired pneumonia (Acute) Sepsis (Acute) Subjective: Patient seen still complains of being dyspneic at rest. Also complains of hemoptysis. Consultation was placed to pathology given the extensive nature of patient's clot in both chambers of the heart. Also requested for PT OT eval and group social worker to assist with discharge planning Objective: GENERAL: Somewhat dyspneic at rest HEENT: Atraumatic; moist oral mucosa EYES; Anicteric, Normal Conjunctiva NECK; supple, normal thyroid, no distended JVD. RESPIRATORY: Diminished to auscultation bilaterally, CARDIOVASCULAR: Regular S1 S2, no audible murmurs GI: Distended non-tender, normoactive bowel sounds, : No Renal angle tenderness; EXTREMITIES: 2+ bipedal edema, no clubbing, no cyanosis. MUSCULOSKELETAL: No Joint Tenderness; no muscle waisting NEURO: Awake; no lateralizing signs. SKIN: No Rash PSYCH; Normal affect Vitals/I&O's: Vital Signs Temp Pulse Resp BP Pulse Ox 98.1 F 88 17 109/83 H 98 09/16/18 09:10 09/16/18 09:10 09/16/18 09:10 09/16/18 09:10 09/16/18 09:10 Oxygen Flow Rate (L/min) 2 Oxygen Delivery Method Room Air Weight: 122.5 kg Body Mass Index (BMI) 42.0 Intake and Output for Last 24 Hours 09/14/18 09/15/18 09/16/18 23:59 23:59 23:59 Intake Total 1501 / 1501 1130 / 1130 1410 / 1410 Output Total 2625 / 2625 1575 / 1575 1250 / 1250 Balance -1124 / -1124 -445 / -445 160 / 160 Microbiology Past 72 Hours 09/15/18 23:53 Sputum, Expectorated/Coughed Gram Stain - Final 09/13/18 02:15 Blood Culture (Wb) #2 - Anticubital Right Blood Culture - Preliminary No growth in 48 hours. 09/13/18 00:45 Blood Culture (Wb) - Port Blood Culture - Preliminary No growth in 48 hours. 09/13/18 03:39 Mucosa - Nose Respiratory Panel (PCR) - Final Rhinovirus Laboratory Results 09/16/18 07:07: Sodium 138, Potassium 3.6, Chloride 103, Carbon Dioxide 27.0, Anion Gap 8, BUN 31 H, Creatinine 0.90, Estim Creat Clear Calc 97.11, Est GFR (MDRD) Af Amer 117, Est GFR (MDRD) Non-Af 96, BUN/Creatinine Ratio 34.6 H, Glucose 132 H, Calcium 7.8 L, Total Bilirubin 0.80, Direct Bilirubin 0.33 H, AST 99 H, ALT 295 H, Alkaline Phosphatase 142 H, Total Protein 5.9 L, Albumin 2.0 L, Globulin 3.9 Current Medications Al Hydroxide/Mg Hydroxide (Mylanta Ii) 15 ml PO Q4H PRN PRN PRN Reason: HEARTBURN Last Admin: 09/15/18 07:49 Dose: 15 ml Albuterol Sulfate (Ventolin Aerosols) 2.5 mg INHALATION Q2H PRN PRN PRN Reason: SHORTNESS OF BREATH Albuterol/Ipratropium (Duoneb) 3 ml INHALATION Q6H.RT [facility] Last Admin: 09/16/18 07:37 Dose: 3 ml Apixaban (Eliquis) 10 mg PO BID [facility] Last Admin: 09/16/18 09:04 Dose: 10 mg Carvedilol (Coreg) 6.25 mg PO BID [facility] Last Admin: 09/16/18 09:04 Dose: 6.25 mg Clonazepam (Klonopin) 0.5 mg PO BID PRN PRN PRN Reason: ANXIETY Furosemide (Lasix) 40 mg IV BID@1000,1800 [facility] Last Admin: 09/16/18 09:04 Dose: 40 mg Guaifenesin (Mucinex) 1,200 mg PO BID [facility] Last Admin: 09/16/18 09:04 Dose: 1,200 mg Magnesium Hydroxide (Milk Of Magnesia) 30 ml PO DAILY PRN PRN PRN Reason: Constipation Ondansetron HCl (Zofran) 4 mg IV Q8H PRN PRN PRN Reason: Nausea Sodium Chloride () 5 - 15 ml IV UD PRN PRN Reason: SALINE FLUSH Last Admin: 09/16/18 09:04 Dose: 10 ml Throat Lozenges (Cepacol Sore Throat Lozenge) 2 lozenge MUCOUS MEM Q2H PRN PRN PRN Reason: COUGH Last Admin: 09/16/18 09:57 Dose: 2 lozenge Medical Necessity - Tobacco Use Smoking Status: Former smoker Assessment/Plan All Active Problems (Last Updated 09/13/18 @ 01:09 by Mitul Rubin MD) Community acquired pneumonia (Acute) Sepsis (Acute) In brief, Patient is a 48-year-old gentleman who presented with progressive shortness of breath imaging studies on admission demonstrated pulmonary emboli in bilateral lower lobes, right middle lobe, and bilateral upper lobes. Largest embolus is in the right inferior pulmonary artery with associated occlusion of right lower lobe pulmonary arterial branches. There is evidence for least mild right ventricular strain. Right lower lobe pulmonary consolidation, suspicious for pulmonary infarction patient started on heparin and admitted for subsequent inpatient management Assessment: 1. Submassive bilateral pulmonary embolism. CT of the chest obtained on admission demonstrated pulmonary emboli in bilateral lower lobes, right middle lobe, and bilateral upper lobes. Largest embolus is in the right inferior pulmonary artery with associated occlusion of right lower lobe pulmonary arterial branches. Patient was also found to have right lower lobe pulmonary consolidation consistent with infection patient started on heparin drip admitted to a monitored bed for subsequent management will consultation placed to Dr. Lucio with pulmonary medicine 2D echo and bilateral venous duplex ordered patient venous duplex demonstrated presence of lower extremity DVT. Patient was transitioned from heparin to Eliquis on 09/14/2018 and consultation was also placed to him on on 09/16/2018 2. Acute pulmonary infarction with hemoptysis the underlying etiology patient submassive pulmonary embolism is being managed as discussed above 3. Acute systolic heart failure. Patient 2D echo obtained as part of workup of his pulmonary embolism demonstrated EF of 10% as well as the presence of a left apical thrombus. Consultation was placed to cardiology patient seen by Dr. Camara is noted recommendations reviewed 4. Hypertension-blood pressure controlled, 5. Ascites order CT of the abdomen with contrast to rule out underlying malignancy; CT of the abdomen demonstrated only small amount of ascites 6. Anxiety disorder 7. Morbid obesity with BMI of 42.1 8. Suspected sleep apnea patient undergo sleep study following his discharge Code Visit Inpatient E&M: 67056 Subs Hosp L2
--- NOTE | 2018-09-16 11:06 | PN_ITS ---
Patient Problems: Active and Suspected Problems (Last Updated 09/13/18 @ 01:09 by Mitul Rubin MD) Community acquired pneumonia (Acute) Sepsis (Acute) Subjective: Patient seen still complains of being dyspneic at rest. Also complains of hemoptysis. Consultation was placed to pathology given the extensive nature of patient's clot in both chambers of the heart. Also requested for PT OT eval and social work nurse to assist with discharge planning Objective: GENERAL: Somewhat dyspneic at rest HEENT: Atraumatic; moist oral mucosa EYES; Anicteric, Normal Conjunctiva NECK; supple, normal thyroid, no distended JVD. RESPIRATORY: Diminished to auscultation bilaterally, CARDIOVASCULAR: Regular S1 S2, no audible murmurs GI: Distended non-tender, normoactive bowel sounds, : No Renal angle tenderness; EXTREMITIES: 2+ bipedal edema, no clubbing, no cyanosis. MUSCULOSKELETAL: No Joint Tenderness; no muscle waisting NEURO: Awake; no lateralizing signs. SKIN: No Rash PSYCH; Normal affect Vitals/I&O's: Vital Signs Temp Pulse Resp BP Pulse Ox 98.1 F 88 17 109/83 H 98 09/16/18 09:10 09/16/18 09:10 09/16/18 09:10 09/16/18 09:10 09/16/18 09:10 Oxygen Flow Rate (L/min) 2 Oxygen Delivery Method Room Air Weight: 122.5 kg Body Mass Index (BMI) 42.0 Intake and Output for Last 24 Hours 09/14/18 09/15/18 09/16/18 23:59 23:59 23:59 Intake Total 1501 / 1501 1130 / 1130 1410 / 1410 Output Total 2625 / 2625 1575 / 1575 1250 / 1250 Balance -1124 / -1124 -445 / -445 160 / 160 Microbiology Past 72 Hours 09/15/18 23:53 Sputum, Expectorated/Coughed Gram Stain - Final 09/13/18 02:15 Blood Culture (Wb) #2 - Anticubital Right Blood Culture - Preliminary No growth in 48 hours. 09/13/18 00:45 Blood Culture (Wb) - Port Blood Culture - Preliminary No growth in 48 hours. 09/13/18 03:39 Mucosa - Nose Respiratory Panel (PCR) - Final Rhinovirus Laboratory Results 09/16/18 07:07: Sodium 138, Potassium 3.6, Chloride 103, Carbon Dioxide 27.0, Anion Gap 8, BUN 31 H, Creatinine 0.90, Estim Creat Clear Calc 97.11, Est GFR (MDRD) Af Amer 117, Est GFR (MDRD) Non-Af 96, BUN/Creatinine Ratio 34.6 H, Glucose 132 H, Calcium 7.8 L, Total Bilirubin 0.80, Direct Bilirubin 0.33 H, AST 99 H, ALT 295 H, Alkaline Phosphatase 142 H, Total Protein 5.9 L, Albumin 2.0 L, Globulin 3.9 Current Medications Al Hydroxide/Mg Hydroxide (Mylanta Ii) 15 ml PO Q4H PRN PRN PRN Reason: HEARTBURN Last Admin: 09/15/18 07:49 Dose: 15 ml Albuterol Sulfate (Ventolin Aerosols) 2.5 mg INHALATION Q2H PRN PRN PRN Reason: SHORTNESS OF BREATH Albuterol/Ipratropium (Duoneb) 3 ml INHALATION Q6H.RT [facility] Last Admin: 09/16/18 07:37 Dose: 3 ml Apixaban (Eliquis) 10 mg PO BID [facility] Last Admin: 09/16/18 09:04 Dose: 10 mg Carvedilol (Coreg) 6.25 mg PO BID [facility] Last Admin: 09/16/18 09:04 Dose: 6.25 mg Clonazepam (Klonopin) 0.5 mg PO BID PRN PRN PRN Reason: ANXIETY Furosemide (Lasix) 40 mg IV BID@1000,1800 [facility] Last Admin: 09/16/18 09:04 Dose: 40 mg Guaifenesin (Mucinex) 1,200 mg PO BID [facility] Last Admin: 09/16/18 09:04 Dose: 1,200 mg Magnesium Hydroxide (Milk Of Magnesia) 30 ml PO DAILY PRN PRN PRN Reason: Constipation Ondansetron HCl (Zofran) 4 mg IV Q8H PRN PRN PRN Reason: Nausea Sodium Chloride () 5 - 15 ml IV UD PRN PRN Reason: SALINE FLUSH Last Admin: 09/16/18 09:04 Dose: 10 ml Throat Lozenges (Cepacol Sore Throat Lozenge) 2 lozenge MUCOUS MEM Q2H PRN PRN PRN Reason: COUGH Last Admin: 09/16/18 09:57 Dose: 2 lozenge Medical Necessity - Tobacco Use Smoking Status: Former smoker Assessment/Plan All Active Problems (Last Updated 09/13/18 @ 01:09 by Mitul Rubin MD) Community acquired pneumonia (Acute) Sepsis (Acute) In brief, Patient is a 48-year-old gentleman who presented with progressive shortness of breath imaging studies on admission demonstrated pulmonary emboli in bilateral lower lobes, right middle lobe, and bilateral upper lobes. Largest embolus is in the right inferior pulmonary artery with associated occlusion of right lower lobe pulmonary arterial branches. There is evidence for least mild right ventricular strain. Right lower lobe pulmonary consolidation, suspicious for pulmonary infarction patient started on heparin and admitted for subsequent inpatient management Assessment: 1. Submassive bilateral pulmonary embolism. CT of the chest obtained on admission demonstrated pulmonary emboli in bilateral lower lobes, right middle lobe, and bilateral upper lobes. Largest embolus is in the right inferior pulmonary artery with associated occlusion of right lower lobe pulmonary arterial branches. Patient was also found to have right lower lobe pulmonary consolidation consistent with infection patient started on heparin drip admitted to a monitored bed for subsequent management will consultation placed to Dr. Lucio with pulmonary medicine 2D echo and bilateral venous duplex ordered patient venous duplex demonstrated presence of lower extremity DVT. Patient was transitioned from heparin to Eliquis on 09/14/2018 and consultation was also placed to him on on 09/16/2018 2. Acute pulmonary infarction with hemoptysis the underlying etiology patient submassive pulmonary embolism is being managed as discussed above 3. Acute systolic heart failure. Patient 2D echo obtained as part of workup of his pulmonary embolism demonstrated EF of 10% as well as the presence of a left apical thrombus. Consultation was placed to cardiology patient seen by Dr. Camara is noted recommendations reviewed 4. Hypertension-blood pressure controlled, 5. Ascites order CT of the abdomen with contrast to rule out underlying malignancy; CT of the abdomen demonstrated only small amount of ascites 6. Anxiety disorder 7. Morbid obesity with BMI of 42.1 8. Suspected sleep apnea patient undergo sleep study following his discharge Code Visit Inpatient E&M: 30771 Subs Hosp L2
--- NOTE | 2018-09-16 14:39 | ONC.CONS.INP ---
Consult Referring Physician: Dr. Todd Matute Consult Results: DVT and Pulmonary embolism. Subjective Date of Service:: 09/16/18 Chief Complaint: shortness of breath/DVT and PE. History of Present Illness: 48-year-old man presented with shortness of breath and hemoptysis. He has had general weakness and SOB for about a year. CT of the chest/abd/pelvis on 09/13/2018 showed pulmonary embolism, no evidence of malignancy. He was started on anticoagulation. Echocardiogram on 09/15/2018 showed EF 15% with Left Ventricular thrombus. Doppler showed DVT in R popliteal vein. Past Medical/Surgical History: Past Medical History - Most Recent Inpatient Visit Past Medical History Start: 09/13/18 02:09 Text: Status: Complete Freq: ONCE Protocol: Document 09/13/18 02:09 CDS (Rec: 09/13/18 02:19 CDS [id number]) BMI Required to complete PMH What is Patient's BMI 42.1 Past Medical History Unable History Recalled No Query Text:Pt Unable/Family Not Present Neurologic Medical History Hx Stroke/TIA No Hx Dementia/Alzheimer's No Hx Parkinson's Disease No Hx Seizures No Hx Multiple Sclerosis No Hx Migraines No Cardiac Medical History VTE Present on Admission No Hx of Deep Vein Thrombosis/VTE/PE No Hx Hypertension Yes Hx Chest Pain/Angina No Hx Heart Attack No Hx Cardiac Surgery/Stents/Etc. No Hx Heart Failure No Hx Pacemaker/AICD No Hx Irregular Heartbeat and/or Afib No Hx Anticoagulant Therapy No Query Text:(Coumadin, Aspirin, Plavix, Xarelto, etc.) Hx Pain in Legs when Walking/Leg Cramps No Respiratory Medical History Hx COPD No Hx Emphysema No Hx Smoking Yes Smoking Status Former smoker Hx Tobacco Use in last 12 months No Hx Sleep Apnea No Do you snore loudly (louder than talking No or can be heard through closed doors)? Do you often feel tired/ fatigued/ No sleepy during daytime? Has anyone observed you stop breathing No during sleep? STOP Results Negative GI Medical History Hx Ulcer No Hx Hepatitis No Hx Cirrhosis No Hx GI Bleed No Hx Unplanned Weight Loss No Genitourinary Medical History Indwelling Catheter in Place on Arrival/ No Admission Hx Renal Disease No Hx Dialysis No Musculoskeletal History Hx Arthritis No Hx Rheumatoid Arthritis No Endocrine Medical History Hx Diabetes No Hx Thyroid Disease No Hematologic Medical History Hx of Blood Transfusion No Hx of Transfusion in last 3 Months No Ever experience any problems with No transfusion(s)? Hx of Preganancy in last 3 Months N/A Nurse Filling Out Transfusion & CSNYDER Questions: Date: 09/13/18 Time: 02:18 Psycho/Social Medical History Hx Depression No Hx Anxiety Yes Hx Behavior Disorder No Hx Alcohol Use No Hx Substance Use No Other Medical History Hx Blood Disorders No Hx Anemia No Hx Cancer No Hx Drug Resistant Organism No Wound/Pressure Injury Present on Arrival No /Admission Query Text:If yes, chart assessment in Shift/Clinical Findings Central Line/PICC/VAD Present on Arrival No /Admission Risk for Readmission Number of Risk Factors 1 At Risk for Readmission Patient is Not at Risk Patient is eligible for Call Back N Past Medical History (Last Updated 09/13/18 @ 01:09 by Mitul Sims MD) Hypertension (Chronic) Maternal Family History: Family History (Last Updated 09/13/18 @ 01:10 by Mitul Sims MD) Mother Diabetes Father Lung disease - Social History Lives: Alone Smoking Status: Former smoker Alcohol: None Allergies/Adverse Reactions: Allergy/AdvReac Type Severity Reaction Status Date / Time lisinopril Allergy Angioedema Verified 09/01/18 19:43 Review of Systems Constitutional:: Reports: Weakness, Fatigue. Denies: Fever Cardiovascular:: Denies: Chest pain, Palpitations, Dyspnea on exertion, Orthopnea, PND, Shortness of breath Respiratory: Denies: Cough, Hemoptysis, Shortness of Breath, Wheezing Gastrointestinal:: Denies: Abdominal pain, Nausea, Vomiting, Diarrhea, Constipation, Hematochezia Genitourinary: Denies: Dysuria, Hematuria, 15, Flank pain Musculoskeletal:: Reports: - - Painful swelling R leg.. Denies: Back pain, Myalgia, Arthralgia Skin: Denies: Rash, Skin Changes, Wounds Vital Signs Height 5 ft 8 in Weight: 122.5 kg Weight in Pounds 270.1 lbs Pulse Ox [AMBULATING on Room 93 Air] Pulse Ox [At REST on Room Air] 95 Pulse Ox 99 Temperature 98.1 F Pulse Rate 85 Respiratory Rate 16 Blood Pressure [BP] 106/66 Blood Pressure 109/83 Blood Pressure Position [BP] Sitting Blood Pressure Position Sitting - Physical Exam General: Alert, Oriented x3, No apparent distress HEENT: Atraumatic, PERRLA, EOMI, Normocephalic Oropharynx:: Dry mucosa Neck:: Supple, Trachea midline. Negative for: JVD, bilateral Cardiac:: Regular rate, Regular rhythm, Normal S1, Normal S2. Negative for: Murmur Lungs: Diminished - BS, Excusion symmetrical. Negative for: Rhonchi, Wheezes Abdomen:: Bowel sounds x 4, Soft, Non-tender, Non-distended. Negative for: Hepatosplenomegaly Extremities:: Calf tenderness - R Neurological: Neuro grossly intact Psychiatric:: Appropriate affect, Euthymic Lymphatics:: Negative for: Cervical lymphadenopathy, Supraclavicular lymphadenopathy, Axillary lymphadenopathy Laboratory Data: Microbiology 09/15/18 23:53 Gram Stain - Final Sputum, Expectorated/Coughed 09/13/18 02:15 Blood Culture - Preliminary Blood Culture (Wb) #2 - Anticubital Right No growth in 48 hours. 09/13/18 00:45 Blood Culture - Preliminary Blood Culture (Wb) - Port No growth in 48 hours. 09/13/18 03:39 Respiratory Panel (PCR) - Final Mucosa - Nose Rhinovirus Laboratory Tests 09/16/18 Range/Units 07:07 Sodium 138 (136-145) mmol/L Potassium 3.6 (3.5-5.1) mmol/L Chloride 103 (98-107) mmol/L Carbon Dioxide 27.0 (21.0-32.0) mmol/L Anion Gap 8 (5-15) BUN 31 H (7-18) mg/dL Creatinine 0.90 (0.70-1.30) mg/dL Estim Creat Clear Calc 97.11 ml/min Est GFR (MDRD) Af Amer 117 (>60) mL/min Est GFR (MDRD) Non-Af 96 (>60) mL/min BUN/Creatinine Ratio 34.6 H (10-20) RATIO Glucose 132 H (74-106) mg/dL Calcium 7.8 L (8.5-10.1) mg/dL Total Bilirubin 0.80 (0.20-1.00) mg/dL Direct Bilirubin 0.33 H (0.00-0.30) mg/dL AST 99 H (15-37) U/L ALT 295 H (16-61) U/L Alkaline Phosphatase 142 H (45-117) U/L Total Protein 5.9 L (6.4-8.2) g/dL Albumin 2.0 L (3.2-5.0) g/dL Globulin 3.9 (2.2-4.2) g/dL Diagnostic Data: Diagnostic Data Chest X-Ray 09/12/18 21:58 IMPRESSION: No acute pulmonary process, no interval change Electronically Signed: Darryl Brambila MD at 23:00 EST , Service support , Chest CT 09/13/18 00:53 IMPRESSION: Pulmonary emboli in bilateral lower lobes, right middle lobe, and bilateral upper lobes. Largest embolus is in the right inferior pulmonary artery with associated occlusion of right lower lobe pulmonary arterial branches. There is evidence for least mild right ventricular strain. Right lower lobe pulmonary consolidation, suspicious for pulmonary infarction, or less likely pneumonia. Cardiomegaly. Coronary artery atherosclerosis. Mild mediastinal and right hilar lymphadenopathy. Old granulomatous disease. Ascites within visualized upper abdomen. N.B. : The above information has been verbally conveyed by Cem Jefferson MD to MITUL SIMS MD, on 09/13/2018 03:00:13 (ET). Electronically Signed: Cem Jefferson MD at 2:13 EST , Service support , Abdomen/Pelvis CT 09/13/18 09:13 IMPRESSION: Dense consolidation in the right lower lobe. Small amount of ascites. Electronically Signed: Cristiano Warren MD at 15:17 EST Tel [phone], Service support , Brain CT 09/14/18 08:19 IMPRESSION: Normal unenhanced CT scan of the brain. Electronically Signed: Cristiano Warren MD at 9:30 EST Tel [phone], Service support , Assessment and Plan DVT with Pulmonary embolism with CHF-EF 15%. Thromboembolism may be related stasis due to heart failure. Suggestions: To continue anticoagulation. Obtain Factor V Leiden mutation, Prothrombin gene mutation, MTHFR mutation. The rest of thrombophilia testing cannot be done when he is acutely ill and on anticoagulation. He can follow up in the [facility] on discharge for further evaluation. Thanks. Medications: Prescriptions This Visit Medication Instructions Recorded NK 09/12/18 Primary Care Provider: Out of Town Doctor Referring Provider: - Problem List (1) DVT, popliteal, acute Status: Acute (2) Pulmonary embolism Status: Acute (3) CHF (congestive heart failure) Status: Acute Code Visit Office Visits / Consults: [id number] IP Consult L5
--- NOTE | 2018-09-16 14:44 | CON.PCM_ITS ---
Consult Referring Physician: Dr. Todd Matute Consult Results: DVT and Pulmonary embolism. Subjective Date of Service:: 09/16/18 Chief Complaint: shortness of breath/DVT and PE. History of Present Illness: 48-year-old man presented with shortness of breath and hemoptysis. He has had general weakness and SOB for about a year. CT of the chest/abd/pelvis on 09/13/2018 showed pulmonary embolism, no evidence of malignancy. He was started on anticoagulation. Echocardiogram on 09/15/2018 showed EF 15% with Left Ventricular thrombus. Doppler showed DVT in R popliteal vein. Past Medical/Surgical History: Past Medical History - Most Recent Inpatient Visit Past Medical History Start: 09/13/18 02:09 Text: Status: Complete Freq: ONCE Protocol: Document 09/13/18 02:09 CDS (Rec: 09/13/18 02:19 CDS [id number]) BMI Required to complete PMH What is Patient's BMI 42.1 Past Medical History Unable History Recalled No Query Text:Pt Unable/Family Not Present Neurologic Medical History Hx Stroke/TIA No Hx Dementia/Alzheimer's No Hx Parkinson's Disease No Hx Seizures No Hx Multiple Sclerosis No Hx Migraines No Cardiac Medical History VTE Present on Admission No Hx of Deep Vein Thrombosis/VTE/PE No Hx Hypertension Yes Hx Chest Pain/Angina No Hx Heart Attack No Hx Cardiac Surgery/Stents/Etc. No Hx Heart Failure No Hx Pacemaker/AICD No Hx Irregular Heartbeat and/or Afib No Hx Anticoagulant Therapy No Query Text:(Coumadin, Aspirin, Plavix, Xarelto, etc.) Hx Pain in Legs when Walking/Leg Cramps No Respiratory Medical History Hx COPD No Hx Emphysema No Hx Smoking Yes Smoking Status Former smoker Hx Tobacco Use in last 12 months No Hx Sleep Apnea No Do you snore loudly (louder than talking No or can be heard through closed doors)? Do you often feel tired/ fatigued/ No sleepy during daytime? Has anyone observed you stop breathing No during sleep? STOP Results Negative GI Medical History Hx Ulcer No Hx Hepatitis No Hx Cirrhosis No Hx GI Bleed No Hx Unplanned Weight Loss No Genitourinary Medical History Indwelling Catheter in Place on Arrival/ No Admission Hx Renal Disease No Hx Dialysis No Musculoskeletal History Hx Arthritis No Hx Rheumatoid Arthritis No Endocrine Medical History Hx Diabetes No Hx Thyroid Disease No Hematologic Medical History Hx of Blood Transfusion No Hx of Transfusion in last 3 Months No Ever experience any problems with No transfusion(s)? Hx of Preganancy in last 3 Months N/A Nurse Filling Out Transfusion & CSNYDER Questions: Date: 09/13/18 Time: 02:18 Psycho/Social Medical History Hx Depression No Hx Anxiety Yes Hx Behavior Disorder No Hx Alcohol Use No Hx Substance Use No Other Medical History Hx Blood Disorders No Hx Anemia No Hx Cancer No Hx Drug Resistant Organism No Wound/Pressure Injury Present on Arrival No /Admission Query Text:If yes, chart assessment in Shift/Clinical Findings Central Line/PICC/VAD Present on Arrival No /Admission Risk for Readmission Number of Risk Factors 1 At Risk for Readmission Patient is Not at Risk Patient is eligible for Call Back N Past Medical History (Last Updated 09/13/18 @ 01:09 by Mitul Sims MD) Hypertension (Chronic) Maternal Family History: Family History (Last Updated 09/13/18 @ 01:10 by Mitul Sims MD) Mother Diabetes Father Lung disease - Social History Lives: Alone Smoking Status: Former smoker Alcohol: None Allergies/Adverse Reactions: Allergy/AdvReac Type Severity Reaction Status Date / Time lisinopril Allergy Angioedema Verified 09/01/18 19:43 Review of Systems Constitutional:: Reports: Weakness, Fatigue. Denies: Fever Cardiovascular:: Denies: Chest pain, Palpitations, Dyspnea on exertion, Orthopnea, PND, Shortness of breath Respiratory: Denies: Cough, Hemoptysis, Shortness of Breath, Wheezing Gastrointestinal:: Denies: Abdominal pain, Nausea, Vomiting, Diarrhea, Constipation, Hematochezia Genitourinary: Denies: Dysuria, Hematuria, 15, Flank pain Musculoskeletal:: Reports: - - Painful swelling R leg.. Denies: Back pain, Myalgia, Arthralgia Skin: Denies: Rash, Skin Changes, Wounds Vital Signs Height 5 ft 8 in Weight: 122.5 kg Weight in Pounds 270.1 lbs Pulse Ox [AMBULATING on Room 93 Air] Pulse Ox [At REST on Room Air] 95 Pulse Ox 99 Temperature 98.1 F Pulse Rate 85 Respiratory Rate 16 Blood Pressure [BP] 106/66 Blood Pressure 109/83 Blood Pressure Position [BP] Sitting Blood Pressure Position Sitting - Physical Exam General: Alert, Oriented x3, No apparent distress HEENT: Atraumatic, PERRLA, EOMI, Normocephalic Oropharynx:: Dry mucosa Neck:: Supple, Trachea midline. Negative for: JVD, bilateral Cardiac:: Regular rate, Regular rhythm, Normal S1, Normal S2. Negative for: Murmur Lungs: Diminished - BS, Excusion symmetrical. Negative for: Rhonchi, Wheezes Abdomen:: Bowel sounds x 4, Soft, Non-tender, Non-distended. Negative for: Hepatosplenomegaly Extremities:: Calf tenderness - R Neurological: Neuro grossly intact Psychiatric:: Appropriate affect, Euthymic Lymphatics:: Negative for: Cervical lymphadenopathy, Supraclavicular lymphadenopathy, Axillary lymphadenopathy Laboratory Data: Microbiology 09/15/18 23:53 Gram Stain - Final Sputum, Expectorated/Coughed 09/13/18 02:15 Blood Culture - Preliminary Blood Culture (Wb) #2 - Anticubital Right No growth in 48 hours. 09/13/18 00:45 Blood Culture - Preliminary Blood Culture (Wb) - Port No growth in 48 hours. 09/13/18 03:39 Respiratory Panel (PCR) - Final Mucosa - Nose Rhinovirus Laboratory Tests 09/16/18 Range/Units 07:07 Sodium 138 (136-145) mmol/L Potassium 3.6 (3.5-5.1) mmol/L Chloride 103 (98-107) mmol/L Carbon Dioxide 27.0 (21.0-32.0) mmol/L Anion Gap 8 (5-15) BUN 31 H (7-18) mg/dL Creatinine 0.90 (0.70-1.30) mg/dL Estim Creat Clear Calc 97.11 ml/min Est GFR (MDRD) Af Amer 117 (>60) mL/min Est GFR (MDRD) Non-Af 96 (>60) mL/min BUN/Creatinine Ratio 34.6 H (10-20) RATIO Glucose 132 H (74-106) mg/dL Calcium 7.8 L (8.5-10.1) mg/dL Total Bilirubin 0.80 (0.20-1.00) mg/dL Direct Bilirubin 0.33 H (0.00-0.30) mg/dL AST 99 H (15-37) U/L ALT 295 H (16-61) U/L Alkaline Phosphatase 142 H (45-117) U/L Total Protein 5.9 L (6.4-8.2) g/dL Albumin 2.0 L (3.2-5.0) g/dL Globulin 3.9 (2.2-4.2) g/dL Diagnostic Data: Diagnostic Data Chest X-Ray 09/12/18 21:58 IMPRESSION: No acute pulmonary process, no interval change Electronically Signed: Darryl Brambila MD at 23:00 EST , Service support , Chest CT 09/13/18 00:53 IMPRESSION: Pulmonary emboli in bilateral lower lobes, right middle lobe, and bilateral upper lobes. Largest embolus is in the right inferior pulmonary artery with associated occlusion of right lower lobe pulmonary arterial branches. There is evidence for least mild right ventricular strain. Right lower lobe pulmonary consolidation, suspicious for pulmonary infarction, or less likely pneumonia. Cardiomegaly. Coronary artery atherosclerosis. Mild mediastinal and right hilar lymphadenopathy. Old granulomatous disease. Ascites within visualized upper abdomen. N.B. : The above information has been verbally conveyed by Cem Jefferson MD to MITUL SIMS MD, on 09/13/2018 03:00:13 (ET). Electronically Signed: Cem Jefferson MD at 2:13 EST , Service support , Abdomen/Pelvis CT 09/13/18 09:13 IMPRESSION: Dense consolidation in the right lower lobe. Small amount of ascites. Electronically Signed: Cristiano Warren MD at 15:17 EST Tel [phone], Service support , Brain CT 09/14/18 08:19 IMPRESSION: Normal unenhanced CT scan of the brain. Electronically Signed: Cristiano Warren MD at 9:30 EST Tel [phone], Service support , Assessment and Plan DVT with Pulmonary embolism with CHF-EF 15%. Thromboembolism may be related stasis due to heart failure. Suggestions: To continue anticoagulation. Obtain Factor V Leiden mutation, Prothrombin gene mutation, MTHFR mutation. The rest of thrombophilia testing cannot be done when he is acutely ill and on anticoagulation. He can follow up in the [facility] on discharge for further evaluation. Thanks. Medications: Prescriptions This Visit Medication Instructions Recorded NK 09/12/18 Primary Care Provider: Out of Town Doctor Referring Provider: - Problem List (1) DVT, popliteal, acute Status: Acute (2) Pulmonary embolism Status: Acute (3) CHF (congestive heart failure) Status: Acute Code Visit Office Visits / Consults: [id number] IP Consult L5
--- NOTE | 2018-09-16 15:00 | CASEMGMT ---
Patient's friend, Binu Abda, asked if SW could let him know where patient goes at d/c. He said he understands patient has to give SW permission. SW met with patient, introduced self and role at [facility]. He was sleeping, but SW woke him up as he was requesting to talk with SW. He said he was trying to figure out what he is going to do at d/c. SW asked if he had family he could stay with. He said, Sort of. SHANTAL told him another alternative would be to complete a Medicaid application and go to a halfway on pending Medicaid. SW told him that if he did not qualify for Medicaid he would owe the halfway the money from his stay. He said he understood. He was not sure what he wanted to do. SW left him the Medicaid application. He is going to talk with his family chris. Maritza HARTLEY
--- NOTE | 2018-09-16 20:45 | NURSING ---
this RN spoke with Meaghan, patient's niece, on phone and gave her an update. mattie is requesting that patient has a repeat CXR done prior to discharge to see if the congestion has worsened or improved. she also stated she wants the pipe fitter maintenance to lay it out for the patient about not working anymore and possibly applying for disability. this RN told mattie that i [facility]. verbalized understanding.
[2018-09-17] VITALS (14 sets, daily range): BP systolic 111–125; BP diastolic 71–80; PULSE 84–106; RESP 18–32; TEMP 36.7–37.2; O2SAT 94–96
[2018-09-17] MEDS: Acetaminophen 325 MG Tablet 650 MG PO (02:23)
--- NOTE | 2018-09-17 07:21 | PCM.PN.CARD ---
Subjectve: Patient seen and evaluated. Appears to be fairly stable but still dyspneic Objective: Vital Signs Temp Pulse Resp BP Pulse Ox 98.5 F 89 18 111/71 95 09/17/18 02:16 09/17/18 03:00 09/17/18 02:16 09/17/18 02:16 09/17/18 02:16 Oxygen Flow Rate (L/min) 2 Oxygen Delivery Method Nasal Cannula Weight: 271 lb 6.224 oz Body Mass Index (BMI) 42.0 Intake and Output for Last 24 Hours 09/15/18 09/16/18 09/17/18 23:59 23:59 23:59 Intake Total 1130 / 1130 2760 / 2760 30 / 30 Output Total 1575 / 1575 3825 / 3825 150 / 150 Balance -445 / -445 -1065 / -1065 -120 / -120 General: Awake, Alert, Oriented x 3, Obese HEENT: PERRL, EOMI, Sclera Non Icteric Neck: Supple, Good ROM, No Lymph Node Enlargement Lungs: Diminished Greyson Bases Cardiovascular: Regular Rhythm, Normal S1, Normal S2, No Murmurs, No Rubs, No Gallops Vascular: No Carotid Bruits, Normal Femoral Pulses, Normal Radial Pulses, Normal Dorsalis Pedal Pulse, Normal Posterior Tibial Pulses Abdomen: Bowel Sounds Present, Soft, Non Tender, No HSM, No Organomegaly Extremities: No Cyanosis, No Clubbing, Bilateral Edema +2 Musculoskeletal: No Erythema Skin: No Rashes Lymphatic: No Lymph Node Enlargement Neurological: No Focal Motor or Sensory Deficit Psych/Mental Status: Appropriate 09/16/18 07:07: Sodium 138, Potassium 3.6, Chloride 103, Carbon Dioxide 27.0, Anion Gap 8, BUN 31 H, Creatinine 0.90, Est GFR (MDRD) Af Amer 117, Est GFR (MDRD) Non-Af 96, BUN/Creatinine Ratio 34.6 H, Glucose 132 H, Calcium 7.8 L, Total Bilirubin 0.80, Direct Bilirubin 0.33 H Rhythm: EKG: ECHO: Stress Test: Cardiac Cath: PCI: CT Surgery: Holter monitor: EPS: PPM: CXR: Chest CT Scan: Medical Necessity - Tobacco Use Smoking Status: Former smoker Assessment/Plan 1. Acute systolic heart failure Patient presents with shortness of breath and has been diagnosed to have a pulmonary embolism but in addition has elevated natruretic peptide level, rales and severe left ventricular systolic dysfunction. I suspect the etiology of the above is secondary to severe hypertension. Recommendation will be to continue low-dose beta-kait Diuresis with intravenous Lasix then switched to oral Lasix Due to previous history of angioedema I am hesitant to start an MARY inhibitor at this time or an ARB There is evidence of liver function test abnormalities which could be secondary to passive congestion. Appears to be improving He will eventually need a cardiac catheterization but at this time I do not think that I will stop the anticoagulation to perform this. I do not think that it would lead to any change in the medical management. Will likely have this as an outpatient. 2. Hypertension Since blood pressure is uncontrolled we will start beta-kait and titrate upwards as appropriate Also diurese with intravenous Lasix May benefit from spironolactone 3. Left ventricular apical thrombus The etiology of the above is unclear but without any evidence of infarction and the global nature I wonder whether there is an underlying coagulopathy problem. Would continue to anticoagulate factor X inhibitor Recommend repeat echocardiogram in 3 months to reassess ventricular thrombus 4. Submassive pulmonary embolism He has evidence of submassive bilateral pulmonary embolism with hemoptysis this morning. He also has an extensive DVT as well as an intramural left ventricular apical thrombus which is large Patient appears to have developed the above without any underlying etiology. May need to be investigated fully to make sure there is no underlying malignancy. Will strongly urge coagulopathy workup and possible input from heme Onc service Thank you for allowing me to participate in the care of your patient. Please don't hesitate to call if any issues arise
--- NOTE | 2018-09-17 07:24 | PN.CARD_ITS ---
Subjectve: Patient seen and evaluated. Appears to be fairly stable but still dyspneic Objective: Vital Signs Temp Pulse Resp BP Pulse Ox 98.5 F 89 18 111/71 95 09/17/18 02:16 09/17/18 03:00 09/17/18 02:16 09/17/18 02:16 09/17/18 02:16 Oxygen Flow Rate (L/min) 2 Oxygen Delivery Method Nasal Cannula Weight: 271 lb 6.224 oz Body Mass Index (BMI) 42.0 Intake and Output for Last 24 Hours 09/15/18 09/16/18 09/17/18 23:59 23:59 23:59 Intake Total 1130 / 1130 2760 / 2760 30 / 30 Output Total 1575 / 1575 3825 / 3825 150 / 150 Balance -445 / -445 -1065 / -1065 -120 / -120 General: Awake, Alert, Oriented x 3, Obese HEENT: PERRL, EOMI, Sclera Non Icteric Neck: Supple, Good ROM, No Lymph Node Enlargement Lungs: Diminished Greyson Bases Cardiovascular: Regular Rhythm, Normal S1, Normal S2, No Murmurs, No Rubs, No Gallops Vascular: No Carotid Bruits, Normal Femoral Pulses, Normal Radial Pulses, Normal Dorsalis Pedal Pulse, Normal Posterior Tibial Pulses Abdomen: Bowel Sounds Present, Soft, Non Tender, No HSM, No Organomegaly Extremities: No Cyanosis, No Clubbing, Bilateral Edema +2 Musculoskeletal: No Erythema Skin: No Rashes Lymphatic: No Lymph Node Enlargement Neurological: No Focal Motor or Sensory Deficit Psych/Mental Status: Appropriate 09/16/18 07:07: Sodium 138, Potassium 3.6, Chloride 103, Carbon Dioxide 27.0, A nion Gap 8, BUN 31 H, Creatinine 0.90, Est GFR (MDRD) Af Amer 117, Est GFR (MDRD) Non-Af 96, BUN/Creatinine Ratio 34.6 H, Glucose 132 H, Calcium 7.8 L, Total Bilirubin 0.80, Direct Bilirubin 0.33 H Rhythm: EKG: ECHO: Stress Test: Cardiac Cath: PCI: CT Surgery: Holter monitor: EPS: PPM: CXR: Chest CT Scan: Medical Necessity - Tobacco Use Smoking Status: Former smoker Assessment/Plan 1. Acute systolic heart failure * Patient presents with shortness of breath and has been diagnosed to have a pulmonary embolism but in addition has elevated natruretic peptide level, rales and severe left ventricular systolic dysfunction. I suspect the etiology of the above is secondary to severe hypertension. * Recommendation will be to continue low-dose beta-kait * Diuresis with intravenous Lasix then switched to oral Lasix * Due to previous history of angioedema I am hesitant to start an MARY inhibitor at this time or an ARB * There is evidence of liver function test abnormalities which could be secondary to passive congestion. Appears to be improving * He will eventually need a cardiac catheterization but at this time I do not think that I will stop the anticoagulation to perform this. I do not think that it would lead to any change in the medical management. * Will likely have this as an outpatient. 2. Hypertension * Since blood pressure is uncontrolled we will start beta-kait and titrate upwards as appropriate * Also diurese with intravenous Lasix * May benefit from spironolactone * 3. Left ventricular apical thrombus * The etiology of the above is unclear but without any evidence of infarction and the global nature I wonder whether there is an underlying coagulopathy problem. * Would continue to anticoagulate factor X inhibitor * Recommend repeat echocardiogram in 3 months to reassess ventricular thrombus * 4. Submassive pulmonary embolism * He has evidence of submassive bilateral pulmonary embolism with hemoptysis this morning. He also has an extensive DVT as well as an intramural left ventricular apical thrombus which is large Patient appears to have developed the above without any underlying etiology. May need to be investigated fully to make sure there is no underlying malignancy. Will strongly urge coagulopathy workup and possible input from heme Onc service Thank you for allowing me to participate in the care of your patient. Please don't hesitate to call if any issues arise
[2018-09-17] MEDS: Carvedilol 6.25 MG Tablet PO ×2 (09:22→21:18)
[2018-09-17] MEDS: guaiFENesin 1,200 MG Tablet 1200 MG PO ×2 (09:22→21:18)
[2018-09-17] MEDS: 0.9% NaCl Peripheral Flush Adult/Peds IV ×3 (09:22→21:20)
[2018-09-17] MEDS: Furosemide 40 MG/4 ML Vial IV ×3 (09:22→21:19)
[2018-09-17] MEDS: APIXABAN 5 MG TABLET 10 MG PO ×2 (09:22→21:18)
--- NOTE | 2018-09-17 10:12 | CASEMGMT ---
SHANTAL spoke with patient again about his d/c plan. He said he has not talked with his family. SHANTAL asked if he thinks he is going to go to a intermediate on pending Medicaid. He said he does not know as he doesn't know much about that stuff. SHANTAL told him that we can fill out a Medicaid application and he can go to a intermediate on the pending Medicaid. SHANTAL told him that after his application is fully reviewed by [employer] if they determine he doesn't qualify he will owe the intermediate money. He said his family is coming in today. SHANTAL told him we need to start working on a d/c plan. Maritza HARTLEY
--- NOTE | 2018-09-17 10:35 | PCM.PN.HOSP ---
Patient Problems: Active and Suspected Problems (Last Updated 09/13/18 @ 01:09 by Mitul Rubin MD) Community acquired pneumonia (Acute) Sepsis (Acute) Subjective: Patient seen still remains dyspneic at rest has persistent cough with occasional hemoptysis. Had runs of nonsustained VT on the monitor. Did discuss with patient regarding disposition. Did explain to him that given how physical deconditioning he was he may need to go to an inpatient rehab/halfway facility prior to going home. Patient to discuss with family before coming to a decision Objective: GENERAL: Somewhat dyspneic at rest HEENT: Atraumatic; moist oral mucosa EYES; Anicteric, Normal Conjunctiva NECK; supple, normal thyroid, no distended JVD. RESPIRATORY: Diminished to auscultation bilaterally, CARDIOVASCULAR: Regular S1 S2, no audible murmurs GI: Distended non-tender, normoactive bowel sounds, : No Renal angle tenderness; EXTREMITIES: 2+ bipedal edema, no clubbing, no cyanosis. MUSCULOSKELETAL: No Joint Tenderness; no muscle waisting NEURO: Awake; no lateralizing signs. SKIN: No Rash PSYCH; Normal affect Vitals/I&O's: Vital Signs Temp Pulse Resp BP Pulse Ox 98.5 F 85 18 123/80 H 96 09/17/18 08:15 09/17/18 08:15 09/17/18 08:15 09/17/18 08:15 09/17/18 08:15 Oxygen Flow Rate (L/min) 2 Oxygen Delivery Method Nasal Cannula Weight: 123.1 kg Body Mass Index (BMI) 42.0 Intake and Output for Last 24 Hours 09/15/18 09/16/18 09/17/18 23:59 23:59 23:59 Intake Total 1130 / 1130 2760 / 2760 30 / 30 Output Total 1575 / 1575 3825 / 3825 150 / 150 Balance -445 / -445 -1065 / -1065 -120 / -120 Microbiology Past 72 Hours 09/15/18 23:53 Sputum, Expectorated/Coughed Gram Stain - Final 09/13/18 02:15 Blood Culture (Wb) #2 - Anticubital Right Blood Culture - Preliminary No growth in 48 hours. 09/13/18 00:45 Blood Culture (Wb) - Port Blood Culture - Preliminary No growth in 48 hours. Current Medications Acetaminophen (Tylenol) 650 mg PO Q6H PRN PRN PRN Reason: PAIN Last Admin: 09/17/18 02:23 Dose: 650 mg Al Hydroxide/Mg Hydroxide (Mylanta Ii) 15 ml PO Q4H PRN PRN PRN Reason: HEARTBURN Last Admin: 09/15/18 07:49 Dose: 15 ml Albuterol Sulfate (Ventolin Aerosols) 2.5 mg INHALATION Q2H PRN PRN PRN Reason: SHORTNESS OF BREATH Albuterol/Ipratropium (Duoneb) 3 ml INHALATION Q6H.RT [facility] Last Admin: 09/17/18 07:00 Dose: Not Given Apixaban (Eliquis) 10 mg PO BID [facility] Last Admin: 09/17/18 09:22 Dose: 10 mg Carvedilol (Coreg) 6.25 mg PO BID [facility] Last Admin: 09/17/18 09:22 Dose: 6.25 mg Clonazepam (Klonopin) 0.5 mg PO BID PRN PRN PRN Reason: ANXIETY Furosemide (Lasix) 40 mg IV Q8 [facility] Guaifenesin (Mucinex) 1,200 mg PO BID [facility] Last Admin: 09/17/18 09:22 Dose: 1,200 mg Magnesium Hydroxide (Milk Of Magnesia) 30 ml PO DAILY PRN PRN PRN Reason: Constipation Ondansetron HCl (Zofran) 4 mg IV Q8H PRN PRN PRN Reason: Nausea Sodium Chloride () 5 - 15 ml IV UD PRN PRN Reason: SALINE FLUSH Last Admin: 09/17/18 09:22 Dose: 10 ml Throat Lozenges (Cepacol Sore Throat Lozenge) 2 lozenge MUCOUS MEM Q2H PRN PRN PRN Reason: COUGH Last Admin: 09/16/18 21:24 Dose: 2 lozenge Medical Necessity - Tobacco Use Smoking Status: Former smoker Assessment/Plan All Active Problems (Last Updated 09/13/18 @ 01:09 by Mitul Rubin MD) Community acquired pneumonia (Acute) Sepsis (Acute) In brief, Patient is a 48-year-old gentleman who presented with progressive shortness of breath imaging studies on admission demonstrated pulmonary emboli in bilateral lower lobes, right middle lobe, and bilateral upper lobes. Largest embolus is in the right inferior pulmonary artery with associated occlusion of right lower lobe pulmonary arterial branches. There is evidence for least mild right ventricular strain. Right lower lobe pulmonary consolidation, suspicious for pulmonary infarction patient started on heparin and admitted for subsequent inpatient management Assessment: 1. Submassive bilateral pulmonary embolism. CT of the chest obtained on admission demonstrated pulmonary emboli in bilateral lower lobes, right middle lobe, and bilateral upper lobes. Largest embolus is in the right inferior pulmonary artery with associated occlusion of right lower lobe pulmonary arterial branches. Patient was also found to have right lower lobe pulmonary consolidation consistent with infection patient started on heparin drip admitted to a monitored bed for subsequent management will consultation placed to Dr. Lucio with pulmonary medicine 2D echo and bilateral venous duplex ordered patient venous duplex demonstrated presence of lower extremity DVT. Patient was transitioned from heparin to Eliquis on 09/14/2018 and consultation was also placed to him on on 09/16/2018. Patient was seen by Dr. Olmos with hematology Case was discussed with him. He currently recommends no further coagulopathy workup 2. Acute pulmonary infarction with hemoptysis the underlying etiology patient submassive pulmonary embolism is being managed as discussed above 3. Acute systolic heart failure. Patient 2D echo obtained as part of workup of his pulmonary embolism demonstrated EF of 10% as well as the presence of a left apical thrombus. Consultation was placed to cardiology patient seen by Dr. Camara is noted recommendations reviewed 4. Hypertension-blood pressure controlled, 5. Ascites order CT of the abdomen with contrast to rule out underlying malignancy; CT of the abdomen demonstrated only small amount of ascites 6. Anxiety disorder 7. Morbid obesity with BMI of 42.1 8. Suspected sleep apnea patient undergo sleep study following his discharge 9. Physical deconditioning and has been seen by PT and OT. Did discuss with patient regarding possibility of being transferred to a halfway facility/rehab prior to going home patient yet to come to patient. Code Visit Inpatient E&M: 17826 Subs Hosp L2
--- NOTE | 2018-09-17 10:41 | PN_ITS ---
Patient Problems: Active and Suspected Problems (Last Updated 09/13/18 @ 01:09 by Mitul Rubin MD) Community acquired pneumonia (Acute) Sepsis (Acute) Subjective: Patient seen still remains dyspneic at rest has persistent cough with occasional hemoptysis. Had runs of nonsustained VT on the monitor. Did discuss with patient regarding disposition. Did explain to him that given how physical deconditioning he was he may need to go to an inpatient rehab/residential facility prior to going home. Patient to discuss with family before coming to a decision Objective: GENERAL: Somewhat dyspneic at rest HEENT: Atraumatic; moist oral mucosa EYES; Anicteric, Normal Conjunctiva NECK; supple, normal thyroid, no distended JVD. RESPIRATORY: Diminished to auscultation bilaterally, CARDIOVASCULAR: Regular S1 S2, no audible murmurs GI: Distended non-tender, normoactive bowel sounds, : No Renal angle tenderness; EXTREMITIES: 2+ bipedal edema, no clubbing, no cyanosis. MUSCULOSKELETAL: No Joint Tenderness; no muscle waisting NEURO: Awake; no lateralizing signs. SKIN: No Rash PSYCH; Normal affect Vitals/I&O's: Vital Signs Temp Pulse Resp BP Pulse Ox 98.5 F 85 18 123/80 H 96 09/17/18 08:15 09/17/18 08:15 09/17/18 08:15 09/17/18 08:15 09/17/18 08:15 Oxygen Flow Rate (L/min) 2 Oxygen Delivery Method Nasal Cannula Weight: 123.1 kg Body Mass Index (BMI) 42.0 Intake and Output for Last 24 Hours 09/15/18 09/16/18 09/17/18 23:59 23:59 23:59 Intake Total 1130 / 1130 2760 / 2760 30 / 30 Output Total 1575 / 1575 3825 / 3825 150 / 150 Balance -445 / -445 -1065 / -1065 -120 / -120 Microbiology Past 72 Hours 09/15/18 23:53 Sputum, Expectorated/Coughed Gram Stain - Final 09/13/18 02:15 Blood Culture (Wb) #2 - Anticubital Right Blood Culture - Preliminary No growth in 48 hours. 09/13/18 00:45 Blood Culture (Wb) - Port Blood Culture - Preliminary No growth in 48 hours. Current Medications Acetaminophen (Tylenol) 650 mg PO Q6H PRN PRN PRN Reason: PAIN Last Admin: 09/17/18 02:23 Dose: 650 mg Al Hydroxide/Mg Hydroxide (Mylanta Ii) 15 ml PO Q4H PRN PRN PRN Reason: HEARTBURN Last Admin: 09/15/18 07:49 Dose: 15 ml Albuterol Sulfate (Ventolin Aerosols) 2.5 mg INHALATION Q2H PRN PRN PRN Reason: SHORTNESS OF BREATH Albuterol/Ipratropium (Duoneb) 3 ml INHALATION Q6H.RT [facility] Last Admin: 09/17/18 07:00 Dose: Not Given Apixaban (Eliquis) 10 mg PO BID [facility] Last Admin: 09/17/18 09:22 Dose: 10 mg Carvedilol (Coreg) 6.25 mg PO BID [facility] Last Admin: 09/17/18 09:22 Dose: 6.25 mg Clonazepam (Klonopin) 0.5 mg PO BID PRN PRN PRN Reason: ANXIETY Furosemide (Lasix) 40 mg IV Q8 [facility] Guaifenesin (Mucinex) 1,200 mg PO BID [facility] Last Admin: 09/17/18 09:22 Dose: 1,200 mg Magnesium Hydroxide (Milk Of Magnesia) 30 ml PO DAILY PRN PRN PRN Reason: Constipation Ondansetron HCl (Zofran) 4 mg IV Q8H PRN PRN PRN Reason: Nausea Sodium Chloride () 5 - 15 ml IV UD PRN PRN Reason: SALINE FLUSH Last Admin: 09/17/18 09:22 Dose: 10 ml Throat Lozenges (Cepacol Sore Throat Lozenge) 2 lozenge MUCOUS MEM Q2H PRN PRN PRN Reason: COUGH Last Admin: 09/16/18 21:24 Dose: 2 lozenge Medical Necessity - Tobacco Use Smoking Status: Former smoker Assessment/Plan All Active Problems (Last Updated 09/13/18 @ 01:09 by Mitul Rubin MD) Community acquired pneumonia (Acute) Sepsis (Acute) In brief, Patient is a 48-year-old gentleman who presented with progressive shortness of breath imaging studies on admission demonstrated pulmonary emboli in bilateral lower lobes, right middle lobe, and bilateral upper lobes. Largest embolus is in the right inferior pulmonary artery with associated occlusion of right lower lobe pulmonary arterial branches. There is evidence for least mild right ventricular strain. Right lower lobe pulmonary consolidation, suspicious for pulmonary infarction patient started on heparin and admitted for subsequent inpatient management Assessment: 1. Submassive bilateral pulmonary embolism. CT of the chest obtained on admission demonstrated pulmonary emboli in bilateral lower lobes, right middle lobe, and bilateral upper lobes. Largest embolus is in the right inferior pulmonary artery with associated occlusion of right lower lobe pulmonary arterial branches. Patient was also found to have right lower lobe pulmonary consolidation consistent with infection patient started on heparin drip admitted to a monitored bed for subsequent management will consultation placed to Dr. Lucio with pulmonary medicine 2D echo and bilateral venous duplex ordered patient venous duplex demonstrated presence of lower extremity DVT. Patient was transitioned from heparin to Eliquis on 09/14/2018 and consultation was also placed to him on on 09/16/2018. Patient was seen by Dr. Olmos with hematology Case was discussed with him. He currently recommends no further coagulopathy workup 2. Acute pulmonary infarction with hemoptysis the underlying etiology patient submassive pulmonary embolism is being managed as discussed above 3. Acute systolic heart failure. Patient 2D echo obtained as part of workup of his pulmonary embolism demonstrated EF of 10% as well as the presence of a left apical thrombus. Consultation was placed to cardiology patient seen by Dr. Camara is noted recommendations reviewed 4. Hypertension-blood pressure controlled, 5. Ascites order CT of the abdomen with contrast to rule out underlying malignancy; CT of the abdomen demonstrated only small amount of ascites 6. Anxiety disorder 7. Morbid obesity with BMI of 42.1 8. Suspected sleep apnea patient undergo sleep study following his discharge 9. Physical deconditioning and has been seen by PT and OT. Did discuss with patient regarding possibility of being transferred to a residential facility/rehab prior to going home patient yet to come to patient. Code Visit Inpatient E&M: 56126 Subs Hosp L2
--- NOTE | 2018-09-17 11:43 | PN_ITS ---
Patient Problems: Active and Suspected Problems (Last Updated 09/13/18 @ 01:09 by Mitul Sims MD) Community acquired pneumonia (Acute) Sepsis (Acute) DVT, popliteal, acute (Acute) Pulmonary embolism (Acute) CHF (congestive heart failure) (Acute) Subjective: The patient was seen and examined at the bedside this morning. Events from the last 24 hours have been reviewed. The patient is currently afebrile, hemodynamically stable and maintaining appropriate oxygen saturations on 2 L/min via nasal cannula. Cough with occasional blood streaked sputum continues. Objective: The patient's most recent lab work, culture data and imaging studies have all been personally reviewed. - Physical Exam General: Alert, Cooperative HEENT: Atraumatic, PERRLA, Normocephalic Oral: No Gingival or Mucosal Lesions/ Ulcerations Neck: Supple, No Nodes, Trachea Midline Lungs: No rhonchi, No wheeze, No rales, Diminished Cardiovascular: Regular rate, Regular Rhythm, Normal S1, Normal S2, No murmurs Abdomen: Bowel Sounds Present, Soft, Non Tender Extremities: No clubbing, No cyanosis, Edema Skin: No breakdown Musculoskeletal: No Tenderness to Palpation of Joints or Extremities Lymphatic: No Cervical, Supraclavicular, or Inguinal Adenopathy Neurological: Neuro grossly intact Psych/Mental Status: Normal Affect Vital Signs Temp Pulse Resp BP Pulse Ox 36.9 C 85 18 123/80 H 96 09/17/18 08:15 09/17/18 08:15 09/17/18 08:15 09/17/18 08:15 09/17/18 08:15 Oxygen Flow Rate (L/min) 2 Oxygen Delivery Method Nasal Cannula Weight: 271 lb 6.224 oz Body Mass Index (BMI) 42.0 Intake and Output for Last 24 Hours 09/15/18 09/16/18 09/17/18 23:59 23:59 23:59 Intake Total 1130 / 1130 2760 / 2760 30 / 30 Output Total 1575 / 1575 3825 / 3825 150 / 150 Balance -445 / -445 -1065 / -1065 -120 / -120 Microbiology Past 72 Hours 09/15/18 23:53 Gram Stain - Final Sputum, Expectorated/Coughed Respiratory Culture - Preliminary Appears to be normal respiratory hafsa. Further studies to follow. 09/13/18 02:15 Blood Culture - Preliminary Blood Culture (Wb) #2 - Anticubital Right No growth in 48 hours. 09/13/18 00:45 Blood Culture - Preliminary Blood Culture (Wb) - Port No growth in 48 hours. Clinical Impression(s) from Imaging Studies Chest X-Ray 09/12/18 21:58 IMPRESSION: No acute pulmonary process, no interval change Electronically Signed: Darryl Brambila MD at 23:00 EST , Service support , Chest CT 09/13/18 00:53 IMPRESSION: Pulmonary emboli in bilateral lower lobes, right middle lobe, and bilateral upper lobes. Largest embolus is in the right inferior pulmonary artery with associated occlusion of right lower lobe pulmonary arterial branches. There is evidence for least mild right ventricular strain. Right lower lobe pulmonary consolidation, suspicious for pulmonary infarction, or less likely pneumonia. Cardiomegaly. Coronary artery atherosclerosis. Mild mediastinal and right hilar lymphadenopathy. Old granulomatous disease. Ascites within visualized upper abdomen. N.B. : The above information has been verbally conveyed by Cem Jefferson MD to MITUL SIMS MD, on 09/13/2018 03:00:13 (ET). Electronically Signed: Cem Jefferson MD at 2:13 EST , Service support , Abdomen/Pelvis CT 09/13/18 09:13 IMPRESSION: Dense consolidation in the right lower lobe. Small amount of ascites. Electronically Signed: Cristiano Warren MD at 15:17 EST Tel [phone], Service support , Brain CT 09/14/18 08:19 IMPRESSION: Normal unenhanced CT scan of the brain. Electronically Signed: Cristiano Warren MD at 9:30 EST Tel [phone], Service support , Medical Necessity - Tobacco Use Smoking Status: Former smoker Assessment/Plan All Active Problems (Last Updated 09/13/18 @ 01:09 by Mitul Sims MD) Community acquired pneumonia (Acute) Sepsis (Acute) DVT, popliteal, acute (Acute) Pulmonary embolism (Acute) CHF (congestive heart failure) (Acute) RECOMMENDATIONS: 1. Continue Eliquis as ordered. 2. Medical management of the patient's cardiomyopathy per cardiology recommendations. 3. Wean supplemental oxygen to maintain saturations at or above 90%. 4. Perform walking oximetry study prior to consideration for discharge from the hospital. 5. Follow-up in the pulmonary medicine clinic within 2 weeks of his discharge from the hospital. IMPRESSIONS: 1. Acute hypoxic respiratory insufficiency secondary to submassive pulmonary embolism The patient initially presented to the hospital with shortness of breath and hemoptysis. Subsequent workup did reveal evidence of a submassive pulmonary embolism with biochemical evidence of heart strain, indicated by elevated BNP and troponins. The patient was initially anticoagulated on a heparin drip. He has since been transitioned to Eliquis. Unless the patient develops a bleeding complication, I would plan for long-term anticoagulation. Continue to wean supplemental oxygen as tolerated. Echocardiogram did not reveal significant RV strain. 2. Hemoptysis with concern for pulmonary infarction Resolved. Clinical concern for pulmonary infarction is the etiology for the patient's hemoptysis. Continue current supportive measures as noted above. 3. Rhinovirus URI Continue current supportive measures. Wean supplemental oxygen as tolerated. 4. Elevated troponin/newly identified systolic heart failure The patient's echocardiogram did reveal evidence of newly identified systolic heart failure with severe global LV dysfunction and an ejection fraction of 15%. There was also evidence of pulmonary hypertension with a pulmonary artery systolic pressure estimated to be 52 mmHg. However, the RV was normal in size and function. Cardiology is following. Continue diuretics. This note was generated with [employer] software. It may contain incorrect words, spelling, and punctuation that were not noted in checking the note before signing. Will sign off at this time. Please call with any additional questions. Code Visit Inpatient E&M: 49916 Subs Hosp L2
--- NOTE | 2018-09-17 13:45 | CASEMGMT ---
Per Maritza MURGUIA, referral needs sent to [facility]. Spoke with Yaquelin at [facility], explained that patient is pending Medicaid and SHANTAL is assisting with NATALI adrian. Yaquelin states that facility will need pending NATALI number when available. Referral sent, fax confirmation received. Kaia Oleary LPN Clinical Support
--- NOTE | 2018-09-17 14:04 | CASEMGMT ---
Patient has decided to go to a fdc. SHANTAL assisted him in completing a Medicaid application. Patient asked SW to call his niece Meaghan regarding which facility. SW called patient's niece Meaghan and she said whichever place will be closest for his appointments. He is from [facility]. SHANTAL called [facility] and because this would be short term SW would need to send the Medicaid application to [facility]. SHANTAL called [facility] and left a message requesting a return call. SHANTAL also faxed his application to [facility]. SHANTAL asked Kaia in Case Management office to fax a referral to [facility]. Maritza HARTLEY
--- NOTE | 2018-09-17 15:25 | CASEMGMT ---
SHANTAL called [facility] again. SHANTAL was able to talk with Ladan. She said they are closed [place] and [place]. She said Debra Shaikh is the worker that will get that application and she will not be back until 09-23. She said SW could probably get a pending number the or . SW awaiting call from [facility]. SHANTAL will have to get a pending Medicaid number before patient will be able to go to a skilled nursing. Maritza FRAZIER MSW
[2018-09-17] MEDS: BENZOCAINE/MENTHOL 1 LOZENGE 2 LOZENGE MUCOUS MEM (15:33)
[2018-09-17] MEDS: Ipratropium/Albuterol Sulfate 3 ML AMPUL.NEB INHALATION (19:59)
[2018-09-18] VITALS (15 sets, daily range): BP systolic 110–130; BP diastolic 65–80; PULSE 64–98; RESP 16–24; TEMP 36.4–37; O2SAT 93–99
[2018-09-18] MEDS: 0.9% NaCl Peripheral Flush Adult/Peds IV ×2 (06:46→16:35)
[2018-09-18] MEDS: Furosemide 40 MG/4 ML Vial IV (06:46)
[2018-09-18] MEDS: APIXABAN 5 MG TABLET 10 MG PO ×2 (09:03→21:14)
[2018-09-18] MEDS: Carvedilol 6.25 MG Tablet PO ×2 (09:04→21:14)
[2018-09-18] MEDS: guaiFENesin 1,200 MG Tablet 1200 MG PO ×2 (09:04→21:14)
--- NOTE | 2018-09-18 09:44 | PCM.PN.CARD ---
Subjectve: Patient seen and examined. Patient still has mild conversational dyspnea, with occasional cough. No anginal symptoms. Echocardiogram results reviewed. Discussed with patient's daughter who is an RN. Objective: Vital Signs Temp Pulse Resp BP Pulse Ox 98.5 F 92 18 127/79 H 99 09/18/18 09:00 09/18/18 09:00 09/18/18 09:00 09/18/18 09:00 09/18/18 09:10 Oxygen Flow Rate (L/min) 3 Oxygen Delivery Method Nasal Cannula Weight: 265 lb 14.04 oz Body Mass Index (BMI) 42.0 Intake and Output for Last 24 Hours 09/16/18 09/17/18 09/18/18 23:59 23:59 23:59 Intake Total 2760 / 2760 1190 / 1190 220 / 220 Output Total 3825 / 3825 6075 / 6075 175 / 175 Balance -1065 / -1065 -4885 / -4885 45 / 45 General: Awake, Alert, Oriented x 3 HEENT: PERRL, EOMI, Sclera Non Icteric Neck: Supple, Good ROM, No Lymph Node Enlargement Lungs: Clear to auscultation Cardiovascular: Regular Rhythm, Normal S1, Normal S2, No Murmurs, No Rubs, No Gallops, Prominent P2 Vascular: No Carotid Bruits, Normal Femoral Pulses, Normal Radial Pulses, Normal Dorsalis Pedal Pulse, Normal Posterior Tibial Pulses Abdomen: Bowel Sounds Present, Soft, Non Tender, No HSM, No Organomegaly Extremities: No Cyanosis, No Clubbing, No edema Neurological: No Focal Motor or Sensory Deficit Rhythm: Telemetry normal sinus rhythm with PVCs. EKG: Normal sinus rhythm with PVC, no acute changes. ECHO: Stress Test: Cardiac Cath: PCI: CT Surgery: Holter monitor: EPS: PPM: CXR: Chest CT Scan: Medical Necessity - Tobacco Use Smoking Status: Former smoker Assessment/Plan 1. Pulmonary emboli: Patient apparently has massive bilateral pulmonary emboli and lower extremity DVT, superimposed upon severe LV dysfunction with LV apical clot. The patient's symptoms appear to have occurred around 3 or 4 weeks ago,, progressively worsening to pleuritic type chest pain, hemoptysis, and shortness of breath. Echocardiogram demonstrates severe LV dysfunction with an EF of 10%, LV apical clot, and at least moderate pulmonary hypertension with an RVSP of at least 52 mmHg. At this point I would continue the patient on anticoagulant therapy, I would not recommend stress testing at this time given the patient's pulmonary emboli and LV dysfunction. Would not recommend over diuresis given his bilateral lower extremity thrombi, as this could promote additional thrombi formation. Would recommend Eliquis therapy for period of at least 6 months time for clot reabsorption both in the pulmonary artery and LV chambers. Would recommend discontinuation of IV Lasix and switching him to Lasix 40 mg p.o. twice daily, and continuing Coreg therapy. The patient had a bad reaction to lisinopril in the form of an allergic reaction with diffuse bilateral swelling, angioedema, and I would not recommend MARY inhibitors or arbs at this time. At some point the patient will require a diagnostic coronary angiogram once his clots have stabilized. My recommendation would be for Eliquis therapy at least for 1 months time followed by bridging with Lovenox followed by diagnostic coronary angiogram. 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 At this point I recommended the patient proceed with both temporary and possibly long-term disability given his pulmonary emboli, and LV dysfunction. Would recommend continuing baby aspirin as well. He has successfully quit smoking several years ago. 2. Hyperlipidemia: Recommend obtaining a fasting lipid profile if not already done. 3. Thank you very much for the opportunity to participate in the cardiac care of your patient. All questions answered with the patient and his daughter. Code Visit Inpatient E&M: 03670 Subs Hosp L2
[2018-09-18 10:00] LABS: Absolute Lymphocyte Count 1.51 X10^3/ul (0.83-4.51); Absolute Neutrophil Count 11.6 X10^3/uL (2.0-7.7); Basophil# 0.03 X10^3/uL; Basophil% 0.2 % (0-1); Differential Indicated SCAN CRITERIA MET; Eosinophil# 0.16 X10^3/uL; Eosinophils% 1.1 % (0-5); Hematocrit 33.7 % (40-54); Hemoglobin 9.9 g/dl (13.0-16.5); Lymphocyte # 1.51 X10^3/ul (4.0); Lymphocyte % 10.6 % (19-41); Mean Corp Hgb Conc 29.4 g/gl (32-36); Mean Corpuscular Hgb 21.9 pg (27.0-32.0); Mean Corpuscular Volume 74.4 fL (80-94); Mean Platelet Vol. 8.9 fl (6.2-12.0); Monocyte# 0.69 X10^3/uL; Monocyte% 4.9 % (0-10); Neutrophil % 81.7 % (47-70); POSITIVE COUNT NO; POSITIVE DIFFERENTIAL NO; POSITIVE MORPHOLOGY YES; Platelet Count 396 K/mm3 (150-450); RBC Distribution Width CV 17.4 % (11.6-14.6); RBC Distribution Width SD 47.3 fl (35.1-43.9); Red Blood Count 4.53 M/mm3 (4.6-6.2); White Blood Count 14.2 K/mm3 (4.4-11.0)
[2018-09-18 10:08] LABS: Anion Gap 8 (5-15); BUN 21 mg/dL (7-18); BUN/Creat Ratio 19.8 RATIO (10-20); Calcium,Total 7.9 mg/dL (8.5-10.1); Chloride 100 mmol/L (98-107); Creatinine, Serum 1.06 mg/dL (0.70-1.30); EST Glomerular Filtration Rate 79 mL/min (>60); Est Glom Filt Rate - Afr Amer 96 mL/min (>60); Estimated Creatinine Clearance 82.45 ml/min; Glucose 141 mg/dL (74-106); Magnesium 1.9 mg/dL (1.6-2.6); Potassium 3.2 mmol/L (3.5-5.1); Sodium Level 138 mmol/L (136-145)
[2018-09-18 10:20] LABS: Polychromasia 1+
--- NOTE | 2018-09-18 10:23 | PN_ITS ---
Patient Problems: Active and Suspected Problems (Last Updated 09/13/18 @ 01:09 by Mitul Rubin MD) Community acquired pneumonia (Acute) Sepsis (Acute) DVT, popliteal, acute (Acute) Pulmonary embolism (Acute) CHF (congestive heart failure) (Acute) Subjective: Patient seen still remains dyspneic at rest and goes into coughing spells after a few sentences. Did have an extensive discussion with patient's niece and nurse at [facility]. Did discuss patient's condition and prognosis and disposition plans. Plan is for patient to apply for Medicaid and [place] [facility]. Case management has been consulted and working on this. Objective: GENERAL: Somewhat dyspneic at rest HEENT: Atraumatic; moist oral mucosa EYES; Anicteric, Normal Conjunctiva NECK; supple, normal thyroid, no distended JVD. RESPIRATORY: Diminished to auscultation bilaterally, CARDIOVASCULAR: Regular S1 S2, no audible murmurs GI: Distended non-tender, normoactive bowel sounds, : No Renal angle tenderness; EXTREMITIES: 2+ bipedal edema, no clubbing, no cyanosis. MUSCULOSKELETAL: No Joint Tenderness; no muscle waisting NEURO: Awake; no lateralizing signs. SKIN: No Rash PSYCH; Normal affect Vitals/I&O's: Vital Signs Temp Pulse Resp BP Pulse Ox 98.5 F 92 18 127/79 H 99 09/18/18 09:00 09/18/18 09:00 09/18/18 09:00 09/18/18 09:00 09/18/18 09:10 Oxygen Flow Rate (L/min) 3 Oxygen Delivery Method Nasal Cannula Weight: 120.6 kg Body Mass Index (BMI) 42.0 Intake and Output for Last 24 Hours 09/16/18 09/17/18 09/18/18 23:59 23:59 23:59 Intake Total 2760 / 2760 1190 / 1190 220 / 220 Output Total 3825 / 3825 6075 / 6075 175 / 175 Balance -1065 / -1065 -4885 / -4885 45 / 45 Microbiology Past 72 Hours 09/15/18 23:53 Sputum, Expectorated/Coughed Gram Stain - Final 09/15/18 23:53 Sputum, Expectorated/Coughed Respiratory Culture - Final Presumptive C albicans 09/13/18 02:15 Blood Culture (Wb) #2 - Anticubital Right Blood Culture - Preliminary No growth in 48 hours. 09/13/18 00:45 Blood Culture (Wb) - Port Blood Culture - Preliminary No growth in 48 hours. Laboratory Results 09/18/18 09:33: WBC 14.2 H, RBC 4.53 L, Hgb 9.9 L, Hct 33.7 L, MCV 74.4 L, MCH 21.9 L, MCHC 29.4 L, RDW 17.4 H, RDW Differential 47.3 H, Plt Count 396, MPV 8.9, Immature Gran % (Auto) 1.500 H, Neut % (Auto) 81.7 H, Lymph % (Auto) 10.6 L , [place] % (Auto) 4.9, Eos % (Auto) 1.1, Baso % (Auto) 0.2, Absolute Neuts (auto) 11.6 H, Absolute Lymphs (auto) 1.51, Total Counted Not Reportable, Polychromasia 1+ 09/18/18 09:33: Sodium 138, Potassium 3.2 L, Chloride 100, Carbon Dioxide 30.0, Anion Gap 8, BUN 21 H, Creatinine 1.06, Estim Creat Clear Calc 82.45, Est GFR (MDRD) Af Amer 96, Est GFR (MDRD) Non-Af 79, BUN/Creatinine Ratio 19.8, Glucose 141 H, Calcium 7.9 L, Magnesium 1.9 Current Medications Acetaminophen (Tylenol) 650 mg PO Q6H PRN PRN PRN Reason: PAIN Last Admin: 09/17/18 02:23 Dose: 650 mg Al Hydroxide/Mg Hydroxide (Mylanta Ii) 15 ml PO Q4H PRN PRN PRN Reason: HEARTBURN Last Admin: 09/15/18 07:49 Dose: 15 ml Albuterol Sulfate (Ventolin Aerosols) 2.5 mg INHALATION Q2H PRN PRN PRN Reason: SHORTNESS OF BREATH Albuterol/Ipratropium (Duoneb) 3 ml INHALATION Q6H.RT LORRIE Last Admin: 09/18/18 07:15 Dose: Not Given Apixaban (Eliquis) 10 mg PO BID LORRIE Last Admin: 09/18/18 09:03 Dose: 10 mg Carvedilol (Coreg) 6.25 mg PO BID [facility] Last Admin: 09/18/18 09:04 Dose: 6.25 mg Clonazepam (Klonopin) 0.5 mg PO BID PRN PRN PRN Reason: ANXIETY Furosemide (Lasix) 40 mg PO BID@1000,1800 [facility] Guaifenesin (Mucinex) 1,200 mg PO BID [facility] Last Admin: 09/18/18 09:04 Dose: 1,200 mg Magnesium Hydroxide (Milk Of Magnesia) 30 ml PO DAILY PRN PRN PRN Reason: Constipation Ondansetron HCl (Zofran) 4 mg IV Q8H PRN PRN PRN Reason: Nausea Potassium Chloride (K-Dur) 20 meq PO BIDCM [facility] Sodium Chloride () 5 - 15 ml IV UD PRN PRN Reason: SALINE FLUSH Last Admin: 09/18/18 06:46 Dose: 10 ml Throat Lozenges (Cepacol Sore Throat Lozenge) 2 lozenge MUCOUS MEM Q2H PRN PRN PRN Reason: COUGH Last Admin: 09/17/18 15:33 Dose: 2 lozenge Medical Necessity - Tobacco Use Smoking Status: Former smoker Assessment/Plan All Active Problems (Last Updated 09/13/18 @ 01:09 by Mitul Rubin MD) Community acquired pneumonia (Acute) Sepsis (Acute) DVT, popliteal, acute (Acute) Pulmonary embolism (Acute) CHF (congestive heart failure) (Acute) In brief, Patient is a 48-year-old gentleman who presented with progressive shortness of breath imaging studies on admission demonstrated pulmonary emboli in bilateral lower lobes, right middle lobe, and bilateral upper lobes. Largest embolus is in the right inferior pulmonary artery with associated occlusion of right lower lobe pulmonary arterial branches. There is evidence for least mild right ventricular strain. Right lower lobe pulmonary consolidation, suspicious for pulmonary infarction patient started on heparin and admitted for subsequent inpatient management Assessment: 1. Submassive bilateral pulmonary embolism. CT of the chest obtained on admission demonstrated pulmonary emboli in bilateral lower lobes, right middle lobe, and bilateral upper lobes. Largest embolus is in the right inferior pulmonary artery with associated occlusion of right lower lobe pulmonary arterial branches. Patient was also found to have right lower lobe pulmonary consolidation consistent with infection patient started on heparin drip admitted to a monitored bed for subsequent management will consultation placed to Dr. Lucio with pulmonary medicine 2D echo and bilateral venous duplex ordered patient venous duplex demonstrated presence of lower extremity DVT. Patient was transitioned from heparin to Eliquis on 09/14/2018 and consultation was also placed to him on on 09/16/2018. Patient was seen by Dr. Olmos with hematology Case was discussed with him. He currently recommends no further coagulopathy workup 2. Acute pulmonary infarction with hemoptysis the underlying etiology patient submassive pulmonary embolism is being managed as discussed above 3. Acute systolic heart failure. Patient 2D echo obtained as part of workup of his pulmonary embolism demonstrated EF of 10% as well as the presence of a left apical thrombus. Consultation was placed to cardiology patient seen by Dr. Camara is noted recommendations reviewed patient was also seen by Dr. Brothers on 09/18/2018 his recommendations also reviewed 4. Hypertension-blood pressure controlled, 5. Ascites order CT of the abdomen with contrast to rule out underlying mal ignancy; CT of the abdomen demonstrated only small amount of ascites 6. Anxiety disorder 7. Morbid obesity with BMI of 42.1 8. Suspected sleep apnea patient undergo sleep study following his discharge 9. Physical deconditioning and has been seen by PT and OT. Did discuss with patient regarding possibility of being [place] a [place] [facility] [place]rehab prior to going home patient yet to come to patient. Patient following the agreeable to going to a [place] [facility] [place] plan is for patient to apply for Medicaid prior to being transferred [place] a [place] [facility] [place] do anticipate transfer to all care after 09/21/2018 Code Visit Inpatient E&M: 06067 Subs Hosp L2
--- NOTE | 2018-09-18 12:57 | CASEMGMT ---
SHANTAL updated patient he will be here through [place] at least as it is going to take some time to get a pending [facility] number. SHANTAL told him that SHANTAL has to go through [facility] as that is his mailing address. He said that is just what he uses for a mailing address. He has been living in [facility] for numerous years. He could not really give SHANTAL a clear address. He said he is in a camper at a storage place. The amy is just letting him stay there. SHANTAL told him SHANTAL will have to talk with [facility] to see what to do. Maritza FRAZIER MSW
--- NOTE | 2018-09-18 13:05 | CPS ---
Pt continues to refuse the BIPAP.
[2018-09-18] MEDS: BENZOCAINE/MENTHOL 1 LOZENGE 2 LOZENGE MUCOUS MEM ×2 (13:47→16:30)
[2018-09-18] MEDS: Furosemide 40 MG Tablet PO (18:38)
[2018-09-18] MEDS: Ipratropium/Albuterol Sulfate 3 ML AMPUL.NEB INHALATION (19:15)
--- NOTE | 2018-09-18 19:21 | CPS ---
pt was told by family member that he didn't need his breathing treatments, which is why he was refusing them. RT explained to pt the benefit of the breathing treatments, especially with his SOB that was going on when RT came in, pt agreed to have breathing tx at this time.
[2018-09-19] VITALS (13 sets, daily range): BP systolic 101–116; BP diastolic 60–70; PULSE 82–98; RESP 18–20; TEMP 36.8–37.1; O2SAT 2–99
[2018-09-19 07:17] LABS: Hematocrit 33.1 % (40-54); Hemoglobin 9.6 g/dl (13.0-16.5); Mean Corpuscular Hgb 21.7 pg (27.0-32.0); Mean Corpuscular Volume 74.7 fL (80-94); Platelet Count 386 K/mm3 (150-450); RBC Distribution Width CV 17.4 % (11.6-14.6); RBC Distribution Width SD 47.3 fl (35.1-43.9); Red Blood Count 4.43 M/mm3 (4.6-6.2); Scan Indicated on CBC? Y/N YES- FLAGS NOTED; White Blood Count 12.5 K/mm3 (4.4-11.0)
[2018-09-19 07:24] LABS: Anion Gap 7 (5-15); BUN 22 mg/dL (7-18); BUN/Creat Ratio 23.2 RATIO (10-20); Calcium,Total 7.9 mg/dL (8.5-10.1); Chloride 102 mmol/L (98-107); Creatinine, Serum 0.95 mg/dL (0.70-1.30); EST Glomerular Filtration Rate 90 mL/min (>60); Est Glom Filt Rate - Afr Amer 109 mL/min (>60); Glucose 88 mg/dL (74-106); Potassium 3.6 mmol/L (3.5-5.1); Sodium Level 139 mmol/L (136-145)
[2018-09-19] MEDS: Carvedilol 6.25 MG Tablet PO ×2 (08:51→21:26)
[2018-09-19] MEDS: APIXABAN 5 MG TABLET 10 MG PO ×2 (08:51→21:25)
[2018-09-19] MEDS: Furosemide 40 MG Tablet PO ×2 (08:52→17:48)
[2018-09-19] MEDS: guaiFENesin 1,200 MG Tablet 1200 MG PO ×2 (08:52→21:25)
--- NOTE | 2018-09-19 09:27 | PCM.PN.HOSP ---
Patient Problems: Active and Suspected Problems (Last Updated 09/13/18 @ 01:09 by Mitul Rubin MD) Community acquired pneumonia (Acute) Sepsis (Acute) DVT, popliteal, acute (Acute) Pulmonary embolism (Acute) CHF (congestive heart failure) (Acute) Subjective: Patient seen sleeping in the chair comfortably but easily arousable. Patient did state he attending his Medicaid application. Awaiting on social services aide regarding disposition possibly to a intermediate facility once approval is obtained Objective: GENERAL: Somewhat dyspneic at rest HEENT: Atraumatic; moist oral mucosa EYES; Anicteric, Normal Conjunctiva NECK; supple, normal thyroid, no distended JVD. RESPIRATORY: Diminished to auscultation bilaterally, CARDIOVASCULAR: Regular S1 S2, no audible murmurs GI: Distended non-tender, normoactive bowel sounds, : No Renal angle tenderness; EXTREMITIES: 2+ bipedal edema, no clubbing, no cyanosis. MUSCULOSKELETAL: No Joint Tenderness; no muscle waisting NEURO: Awake; no lateralizing signs. SKIN: No Rash PSYCH; Normal affect Vitals/I&O's: Vital Signs Temp Pulse Resp BP Pulse Ox 98.7 F 86 18 101/63 97 09/19/18 08:48 09/19/18 08:48 09/19/18 08:48 09/19/18 08:48 09/19/18 08:48 Oxygen Flow Rate (L/min) 2 Oxygen Delivery Method Nasal Cannula Weight: 120.6 kg Body Mass Index (BMI) 42.0 Intake and Output for Last 24 Hours 09/17/18 09/18/18 09/19/18 23:59 23:59 23:59 Intake Total 1190 / 1190 1460 / 1460 Output Total 6075 / 6075 3200 / 3200 275 / 275 Balance -4885 / -4885 -1740 / -1740 -275 / -275 Microbiology Past 72 Hours 09/13/18 02:15 Blood Culture (Wb) #2 - Anticubital Right Blood Culture - Final No growth in 5 days. 09/13/18 00:45 Blood Culture (Wb) - Port Blood Culture - Final No growth in 5 days. 09/15/18 23:53 Sputum, Expectorated/Coughed Gram Stain - Final 09/15/18 23:53 Sputum, Expectorated/Coughed Respiratory Culture - Final Presumptive C albicans Laboratory Results 09/18/18 09:33: WBC 14.2 H, RBC 4.53 L, Hgb 9.9 L, Hct 33.7 L, MCV 74.4 L, MCH 21.9 L, MCHC 29.4 L, RDW 17.4 H, RDW Differential 47.3 H, Plt Count 396, MPV 8.9, Immature Gran % (Auto) 1.500 H, Neut % (Auto) 81.7 H, Lymph % (Auto) 10.6 L, [place] % (Auto) 4.9, Eos % (Auto) 1.1, Baso % (Auto) 0.2, Absolute Neuts (auto) 11.6 H, Absolute Lymphs (auto) 1.51, Total Counted Not Reportable, Polychromasia 1+ 09/18/18 09:33: Sodium 138, Potassium 3.2 L, Chloride 100, Carbon Dioxide 30.0, Anion Gap 8, BUN 21 H, Creatinine 1.06, Estim Creat Clear Calc 82.45, Est GFR (MDRD) Af Amer 96, Est GFR (MDRD) Non-Af 79, BUN/Creatinine Ratio 19.8, Glucose 141 H, Calcium 7.9 L, Magnesium 1.9 09/19/18 05:40: WBC 12.5 H, RBC 4.43 L, Hgb 9.6 L, Hct 33.1 L, MCV 74.7 L, MCH 21.7 L, MCHC 29.0 L, RDW 17.4 H, RDW Differential 47.3 H, Plt Count 386, MPV 9.0, Differential Comment 09/19/18 05:40: Sodium 139, Potassium 3.6, Chloride 102, Carbon Dioxide 30.0, Anion Gap 7, BUN 22 H, Creatinine 0.95, Estim Creat Clear Calc 92.00, Est GFR (MDRD) Af Amer 109, Est GFR (MDRD) Non-Af 90, BUN/Creatinine Ratio 23.2 H, Glucose 88, Calcium 7.9 L Current Medications Acetaminophen (Tylenol) 650 mg PO Q6H PRN PRN PRN Reason: PAIN Last Admin: 09/17/18 02:23 Dose: 650 mg Al Hydroxide/Mg Hydroxide (Mylanta Ii) 15 ml PO Q4H PRN PRN PRN Reason: HEARTBURN Last Admin: 09/15/18 07:49 Dose: 15 ml Albuterol Sulfate (Ventolin Aerosols) 2.5 mg INHALATION Q2H PRN PRN PRN Reason: SHORTNESS OF BREATH Albuterol/Ipratropium (Duoneb) 3 ml INHALATION Q6H.RT [facility] Last Admin: 09/19/18 07:00 Dose: Not Given Apixaban (Eliquis) 10 mg PO BID [facility] Last Admin: 09/19/18 08:51 Dose: 10 mg Carvedilol (Coreg) 6.25 mg PO BID [facility] Last Admin: 09/19/18 08:51 Dose: 6.25 mg Clonazepam (Klonopin) 0.5 mg PO BID PRN PRN PRN Reason: ANXIETY Furosemide (Lasix) 40 mg PO BID@1000,1800 [facility] Last Admin: 09/19/18 08:52 Dose: 40 mg Guaifenesin (Mucinex) 1,200 mg PO BID [facility] Last Admin: 09/19/18 08:52 Dose: 1,200 mg Magnesium Hydroxide (Milk Of Magnesia) 30 ml PO DAILY PRN PRN PRN Reason: Constipation Ondansetron HCl (Zofran) 4 mg IV Q8H PRN PRN PRN Reason: Nausea Potassium Chloride (K-Dur) 20 meq PO BIDCM [facility] Last Admin: 09/19/18 08:51 Dose: 20 meq Sodium Chloride () 5 - 15 ml IV UD PRN PRN Reason: SALINE FLUSH Last Admin: 09/18/18 16:35 Dose: 10 ml Throat Lozenges (Cepacol Sore Throat Lozenge) 2 lozenge MUCOUS MEM Q2H PRN PRN PRN Reason: COUGH Last Admin: 09/18/18 16:30 Dose: 2 lozenge Medical Necessity - Tobacco Use Smoking Status: Former smoker Assessment/Plan All Active Problems (Last Updated 09/13/18 @ 01:09 by Mitul Rubin MD) Community acquired pneumonia (Acute) Sepsis (Acute) DVT, popliteal, acute (Acute) Pulmonary embolism (Acute) CHF (congestive heart failure) (Acute) In brief, Patient is a 48-year-old gentleman who presented with progressive shortness of breath imaging studies on admission demonstrated pulmonary emboli in bilateral lower lobes, right middle lobe, and bilateral upper lobes. Largest embolus is in the right inferior pulmonary artery with associated occlusion of right lower lobe pulmonary arterial branches. There is evidence for least mild right ventricular strain. Right lower lobe pulmonary consolidation, suspicious for pulmonary infarction patient started on heparin and admitted for subsequent inpatient management Assessment: 1. Submassive bilateral pulmonary embolism. CT of the chest obtained on admission demonstrated pulmonary emboli in bilateral lower lobes, right middle lobe, and bilateral upper lobes. Largest embolus is in the right inferior pulmonary artery with associated occlusion of right lower lobe pulmonary arterial branches. Patient was also found to have right lower lobe pulmonary consolidation consistent with infection patient started on heparin drip admitted to a monitored bed for subsequent management will consultation placed to Dr. Lucio with pulmonary medicine 2D echo and bilateral venous duplex ordered patient venous duplex demonstrated presence of lower extremity DVT. Patient was transitioned from heparin to Eliquis on 09/14/2018 and consultation was also placed to him on on 09/16/2018. Patient was seen by Dr. Olmos with hematology Case was discussed with him. He currently recommends no further coagulopathy workup 2. Acute pulmonary infarction with hemoptysis the underlying etiology patient submassive pulmonary embolism is being managed as discussed above 3. Acute systolic heart failure. Patient 2D echo obtained as part of workup of his pulmonary embolism demonstrated EF of 10% as well as the presence of a left apical thrombus. Consultation was placed to cardiology patient seen by Dr. Camara is noted recommendations reviewed patient was also seen by Dr. Brothers on 09/18/2018 his recommendations also reviewed 4. Hypertension-blood pressure controlled, 5. Ascites order CT of the abdomen with contrast to rule out underlying malignancy; CT of the abdomen demonstrated only small amount of ascites 6. Anxiety disorder 7. Morbid obesity with BMI of 42.1 8. Suspected sleep apnea patient undergo sleep study following his discharge 9. Physical deconditioning and has been seen by PT and OT. Did discuss with patient regarding possibility of being transferred to a intermediate facility/rehab prior to going home patient yet to come to patient. Patient following the agreeable to going to a intermediate facility; he did apply for Medicaid and is agreeable to being transferred to a intermediate facility; do anticipate transfer to a intermediate facility after 09/21/2018 Active Medications Acetaminophen (Tylenol) 650 mg PO Q6H PRN PRN PRN Reason: PAIN Last Admin: 09/17/18 02:23 Dose: 650 mg Al Hydroxide/Mg Hydroxide (Mylanta Ii) 15 ml PO Q4H PRN PRN PRN Reason: HEARTBURN Last Admin: 09/15/18 07:49 Dose: 15 ml Albuterol Sulfate (Ventolin Aerosols) 2.5 mg INHALATION Q2H PRN PRN PRN Reason: SHORTNESS OF BREATH Albuterol/Ipratropium (Duoneb) 3 ml INHALATION Q6H.RT [facility] Last Admin: 09/19/18 07:00 Dose: Not Given Apixaban (Eliquis) 10 mg PO BID [facility] Last Admin: 09/19/18 08:51 Dose: 10 mg Carvedilol (Coreg) 6.25 mg PO BID [facility] Last Admin: 09/19/18 08:51 Dose: 6.25 mg Clonazepam (Klonopin) 0.5 mg PO BID PRN PRN PRN Reason: ANXIETY Furosemide (Lasix) 40 mg PO BID@1000,1800 [facility] Last Admin: 09/19/18 08:52 Dose: 40 mg Guaifenesin (Mucinex) 1,200 mg PO BID [facility] Last Admin: 09/19/18 08:52 Dose: 1,200 mg Magnesium Hydroxide (Milk Of Magnesia) 30 ml PO DAILY PRN PRN PRN Reason: Constipation Ondansetron HCl (Zofran) 4 mg IV Q8H PRN PRN PRN Reason: Nausea Potassium [facility] Last Admin: 09/19/18 08:51 Dose: 20 meq Sodium Chloride () 5 - 15 ml IV UD PRN PRN Reason: SALINE FLUSH Last Admin: 09/18/18 16:35 Dose: 10 ml Throat Lozenges (Cepacol Sore Throat Lozenge) 2 lozenge MUCOUS MEM Q2H PRN PRN PRN Reason: COUGH Last Admin: 09/18/18 16:30 Dose: 2 lozenge Code Visit Inpatient E&M: 35042 Subs Hosp L2
--- NOTE | 2018-09-19 09:51 | PN.CARD_ITS ---
Subjectve: Patient doing well this morning. No 24-hour events. Telemetry showed normal sinus rhythm, no PVCs. Blood pressure and heart rate are well controlled. Objective: Vital Signs Temp Pulse Resp BP Pulse Ox 98.7 F 86 18 101/63 2 09/19/18 08:48 09/19/18 08:48 09/19/18 08:48 09/19/18 08:48 09/19/18 09:36 Oxygen Flow Rate (L/min) 2 Oxygen Delivery Method Nasal Cannula Weight: 265 lb 14.04 oz Body Mass Index (BMI) 42.0 Intake and Output for Last 24 Hours 09/17/18 09/18/18 09/19/18 23:59 23:59 23:59 Intake Total 1190 / 1190 1460 / 1460 Output Total 6075 / 6075 3200 / 3200 275 / 275 Balance -4885 / -4885 -1740 / -1740 -275 / -275 General: Awake, Alert, Oriented x 3 HEENT: PERRL, EOMI, Sclera Non Icteric Neck: Supple, Good ROM, No Lymph Node Enlargement Lungs: Clear to auscultation Cardiovascular: Regular Rhythm, Normal S1, Normal S2, No Murmurs, No Rubs, No Gallops Vascular: No Carotid Bruits, Normal Femoral Pulses, Normal Radial Pulses, Normal Dorsalis Pedal Pulse, Normal Posterior Tibial Pulses Abdomen: Bowel Sounds Present, Soft, Non Tender, No HSM, No Organomegaly Extremities: No Cyanosis, No Clubbing, No edema Neurological: No Focal Motor or Sensory Deficit 09/18/18 09:33: WBC 14.2 H, RBC 4.53 L, Hgb 9.9 L, Hct 33.7 L, MCV 74.4 L, MCH 21.9 L, MCHC 29.4 L, RDW 17.4 H, RDW Differential 47.3 H, Plt Count 396, MPV 8.9, Immature Gran % (Auto) 1.500 H, Neut % (Auto) 81.7 H, Lymph % (Auto) 10.6 L , [place] % (Auto) 4.9, Eos % (Auto) 1.1, Baso % (Auto) 0.2, Absolute Neuts (auto) 11.6 H, Total Counted Not Reportable 09/18/18 09:33: Sodium 138, Potassium 3.2 L, Chloride 100, Carbon Dioxide 30.0, Anion Gap 8, BUN 21 H, Creatinine 1.06, Est GFR (MDRD) Af Amer 96, Est GFR (MDRD) Non-Af 79, BUN/Creatinine Ratio 19.8, Glucose 141 H, Calcium 7.9 L, Magnesium 1.9 09/19/18 05:40: WBC 12.5 H, RBC 4.43 L, Hgb 9.6 L, Hct 33.1 L, MCV 74.7 L, MCH 21.7 L, MCHC 29.0 L, RDW 17.4 H, RDW Differential 47.3 H, Plt Count 386, MPV 9.0 09/19/18 05:40: Sodium 139, Potassium 3.6, Chloride 102, Carbon Dioxide 30.0, Anion Gap 7, BUN 22 H, Creatinine 0.95, Est GFR (MDRD) Af Amer 109, Est GFR (MDRD) Non-Af 90, BUN/Creatinine Ratio 23.2 H, Glucose 88, Calcium 7.9 L Rhythm: EKG: ECHO: Stress Test: Cardiac Cath: PCI: CT Surgery: Holter monitor: EPS: PPM: CXR: Chest CT Scan: Medical Necessity - Tobacco Use Smoking Status: Former smoker Assessment/Plan 1. Pulmonary emboli: Patient apparently has massive bilateral pulmonary emboli and lower extremity DVT, superimposed upon severe LV dysfunction with LV apical clot. The patient's symptoms appear to have occurred around 3 or 4 weeks ago,, progressively worsening to pleuritic type chest pain, hemoptysis, and shortness of breath. Echocardiogram demonstrates severe LV dysfunction with an EF of 10%, LV apical clot, and at least moderate pulmonary hypertension with an RVSP of at least 52 mmHg. At this point I would continue the patient on anticoagulant therapy, I would not recommend stress testing at this time given the patient's pulmonary emboli and LV dysfunction. Would not recommend over diuresis given his bilateral lower extremity thrombi, as this could promote additional thrombi formation. Would recommend Eliquis therapy for period of at least 6 months time for clot reabsorption both in the pulmonary artery and LV chambers. If his LV function does not recover during that time, he will most likely require lifelong anticoagulation. Would recommend to doing Lasix 40 mg p.o. twice daily, potassium replacement therapy, and continuing Coreg therapy. The patient had a bad reaction to lisinopril in the form of an allergic reaction with diffuse bilateral swelling, angioedema, and I would not recommend MARY inhibitors or arbs at this time. At some point the patient will require a diagnostic coronary angiogram once his clots have stabilized. My recommendation would be for Eliquis therapy at least for 1 months time followed by bridging with Lovenox followed by diagnostic coronary angiogram. 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 At this point I recommended the patient proceed with both temporary and possibly long-term disability given his pulmonary emboli, and LV dysfunction. Would recommend continuing baby aspirin as well. He has successfully quit smoking several years ago. 2. Hyperlipidemia: Recommend obtaining a fasting lipid profile if not already done. 3. Thank you very much for the opportunity to participate in the cardiac care of your patient. Patient may follow-up with Dr. Camara going forward should discharge planning be in play. Code Visit Inpatient E&M: 31736 Subs Hosp L2
[2018-09-19] MEDS: BENZOCAINE/MENTHOL 1 LOZENGE 2 LOZENGE MUCOUS MEM (13:10)
[2018-09-19 14:34] LABS: AST(SGOT) 50 U/L (15-37); Alanine Aminotransfer ALT/SGPT 156 U/L (16-61); Albumin, Serum 2.1 g/dL (3.2-5.0); Alkaline Phosphatase 139 U/L (45-117); Bilirubin, Direct 0.46 mg/dL (0.00-0.30); Globulin 4.3 g/dL (2.2-4.2); Protein, Total 6.4 g/dL (6.4-8.2)
[2018-09-20] VITALS (19 sets, daily range): BP systolic 87–144; BP diastolic 60–75; PULSE 75–103; RESP 16–24; TEMP 36.3–37.2; O2SAT 90–99
[2018-09-20 06:42] LABS: Hematocrit 31.9 % (40-54); Hemoglobin 9.5 g/dl (13.0-16.5); Mean Corp Hgb Conc 29.8 g/gl (32-36); Mean Corpuscular Hgb 22.4 pg (27.0-32.0); Mean Corpuscular Volume 75.2 fL (80-94); Mean Platelet Vol. 9.1 fl (6.2-12.0); Platelet Count 381 K/mm3 (150-450); RBC Distribution Width CV 17.9 % (11.6-14.6); Red Blood Count 4.24 M/mm3 (4.6-6.2); White Blood Count 10.8 K/mm3 (4.4-11.0)
[2018-09-20 06:44] LABS: Scan Indicated on CBC? Y/N NO
[2018-09-20 06:52] LABS: Anion Gap 8 (5-15); BUN 19 mg/dL (7-18); BUN/Creat Ratio 24.9 RATIO (10-20); Calcium,Total 7.8 mg/dL (8.5-10.1); Chloride 103 mmol/L (98-107); Creatinine, Serum 0.76 mg/dL (0.70-1.30); EST Glomerular Filtration Rate 116 mL/min (>60); Est Glom Filt Rate - Afr Amer 140 mL/min (>60); Glucose 88 mg/dL (74-106); Sodium Level 137 mmol/L (136-145)
--- NOTE | 2018-09-20 08:42 | CASEMGMT ---
Addendum entered by Maritza Fernandez 09/20/18 09:11: SW spoke with patient and asked him if he could give SW the physical address of where he was staying prior to coming to [facility]. He told SW about a place he was staying a couple of months ago. He could not remember the address. He could get it for SW. Then he said he isn't staying there anymore. SW again asked for the physical address of where he is staying. He said he can't use that address as someone is just letting him put his camper on their storage unit property. Maritza HARTLEY Original Note: SW spoke with Harriet at [facility] and they can accept patient as soon as SW has a pending Medicaid number. [facility] is not open today or tomorrow so SW will not be able to get a pending number until at least Thursday. Plan: [facility] pending SW getting a pending NATALI number and level of care from [facility]. Maritza FRAZIER MSW
--- NOTE | 2018-09-20 09:56 | CASEMGMT ---
Call placed to Yaquelin at [facility] to follow up on voicemail she had left Monday 09/17 re: patient being in droplet precautions. Informed Yaquelin that patient was + for rhinovirus on 09/13 and is currently under droplet precautions here. Kaia Oleary LPN Clinical Support
[2018-09-20] MEDS: Carvedilol 6.25 MG Tablet PO (10:03)
[2018-09-20] MEDS: Furosemide 40 MG Tablet PO ×2 (10:03→17:33)
[2018-09-20] MEDS: guaiFENesin 1,200 MG Tablet 1200 MG PO ×2 (10:04→21:18)
[2018-09-20] MEDS: APIXABAN 5 MG TABLET 10 MG PO ×2 (10:04→21:18)
--- NOTE | 2018-09-20 13:10 | PN.CARD_ITS ---
Subjectve: Patient doing well, sleeping this morning but easily woken up. No 24-hour events. Telemetry negative. Objective: Vital Signs Temp Pulse Resp BP Pulse Ox 97.4 F L 94 16 144/67 H 99 09/20/18 10:00 09/20/18 10:51 09/20/18 10:00 09/20/18 10:00 09/20/18 10:00 Oxygen Flow Rate (L/min) 2 Oxygen Delivery Method Nasal Cannula Weight: 260 lb 12.909 oz Body Mass Index (BMI) 42.0 Intake and Output for Last 24 Hours 09/18/18 09/19/18 09/20/18 23:59 23:59 23:59 Intake Total 1460 / 1460 1000 / 1000 600 / 600 Output Total 3200 / 3200 1050 / 1050 1125 / 1125 Balance -1740 / -1740 -50 / -50 -525 / -525 General: Awake, Alert, Oriented x 3 HEENT: PERRL, EOMI, Sclera Non Icteric Neck: Supple, Good ROM, No Lymph Node Enlargement Lungs: Clear to auscultation Cardiovascular: Regular Rhythm, Normal S1, Normal S2, No Murmurs, No Rubs, No Gallops Vascular: No Carotid Bruits, Normal Femoral Pulses, Normal Radial Pulses, Normal Dorsalis Pedal Pulse, Normal Posterior Tibial Pulses Abdomen: Bowel Sounds Present, Soft, Non Tender, No HSM, No Organomegaly Extremities: No Cyanosis, No Clubbing, No edema Neurological: No Focal Motor or Sensory Deficit 09/19/18 05:40: Total Bilirubin 0.90, Direct Bilirubin 0.46 H 09/20/18 05:16: WBC 10.8, RBC 4.24 L, Hgb 9.5 L, Hct 31.9 L, MCV 75.2 L, MCH 22.4 L, MCHC 29.8 L, RDW 17.9 H, RDW Differential 46.0 H, Plt Count 381, MPV 9.1 09/20/18 05:16: Sodium 137, Potassium 4.0, Chloride 103, Carbon Dioxide 26.0, Anion Gap 8, BUN 19 H, Creatinine 0.76, Est GFR (MDRD) Af Amer 140, Est GFR (MDRD) Non-Af 116, BUN/Creatinine Ratio 24.9 H, Glucose 88, Calcium 7.8 L Rhythm: Normal sinus rhythm. No arrhythmias. EKG: ECHO: Stress Test: Cardiac Cath: PCI: CT Surgery: Holter monitor: EPS: PPM: CXR: Chest CT Scan: Medical Necessity - Tobacco Use Smoking Status: Former smoker Assessment/Plan 1. Pulmonary emboli: Patient apparently has massive bilateral pulmonary emboli and lower extremity DVT, superimposed upon severe LV dysfunction with LV apical clot. The patient's symptoms appear to have occurred around 3 or 4 weeks ago,, progressively worsening to pleuritic type chest pain, hemoptysis, and shortness of breath. Echocardiogram demonstrates severe LV dysfunction with an EF of 10%, LV apical clot, and at least moderate pulmonary hypertension with an RVSP of at least 52 mmHg. At this point I would continue the patient on anticoagulant therapy, I would not recommend stress testing at this time given the patient's pulmonary emboli and LV dysfunction. Would not recommend over diuresis given his bilateral lower extremity thrombi, as this could promote additional thrombi formation. Would recommend Eliquis therapy for period of at least 6 months time for clot reabsorption both in the pulmonary artery and LV chambers. If his LV function does not recover during that time, he will most likely require lifelong anticoagulation. Would recommend continuing Lasix 40 mg p.o. twice daily, potassium replacement therapy, and continuing Coreg therapy. The patient had a bad reaction to lisinopril in the form of an allergic reaction with diffuse bilateral swelling, angioedema, and I would not recommend MARY inhibitors or arbs at this time. At some point the patient will require a diagnostic coronary angiogram once his clots have stabilized. My recommendation would be for Eliquis therapy at least for 1 months time followed by bridging with Lovenox followed by diagnostic coronary angiogram. 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 At this point I recommended the patient proceed with both temporary and possibly long-term disability given his pulmonary emboli, and LV dysfunction. Would recommend continuing baby aspirin as well. He has successfully quit smoking several years ago. 2. Hyperlipidemia: Recommend obtaining a fasting lipid profile if not already done. 3. Thank you very much for the opportunity to participate in the cardiac care of your patient. Patient may follow-up with Dr. Camara going forward should discharge planning be in play. We will sign off. Please call with any questions. Code Visit Inpatient E&M: 46352 Subs Hosp L2
--- NOTE | 2018-09-20 13:24 | PCM.PN.HOSP ---
Patient Problems: Active and Suspected Problems (Last Updated 09/13/18 @ 01:09 by Mitul Rubin MD) Community acquired pneumonia (Acute) Sepsis (Acute) DVT, popliteal, acute (Acute) Pulmonary embolism (Acute) CHF (congestive heart failure) (Acute) Subjective: Patient was seen and examined. No new complaints. Waiting on discharge planning with Medicaid application. Vitals/I&O's: Vital Signs Temp Pulse Resp BP Pulse Ox 97.4 F L 94 16 144/67 H 99 09/20/18 10:00 09/20/18 10:51 09/20/18 10:00 09/20/18 10:00 09/20/18 10:00 Oxygen Flow Rate (L/min) 2 Oxygen Delivery Method Nasal Cannula Weight: 118.3 kg Body Mass Index (BMI) 42.0 Intake and Output for Last 24 Hours 09/18/18 09/19/18 09/20/18 23:59 23:59 23:59 Intake Total 1460 / 1460 1000 / 1000 600 / 600 Output Total 3200 / 3200 1050 / 1050 1125 / 1125 Balance -1740 / -1740 -50 / -50 -525 / -525 General: Alert, Oriented x3, Cooperative, - - on 2L oxygen, in mild respiratory distress HEENT: Atraumatic, PERRLA, EOMI, Normocephalic Oral: Moist Mucosa Neck: Supple Lungs: Normal air movement, Diminished Cardiovascular: Regular rate, Regular Rhythm, Normal S1, Normal S2 Abdomen: Bowel Sounds Present, Soft, Non Tender, Non-Distended, No Hepato-splenomegaly Extremities: - - MARY wraps to bilateral legs Skin: No rashes, No breakdown Musculoskeletal: No Tenderness to Palpation of Joints or Extremities Neurological: Cranial nerves II-XII grossly intact, Neuro grossly intact Psych/Mental Status: Normal Affect, Appropriate Microbiology Past 72 Hours 09/13/18 02:15 Blood Culture (Wb) #2 - Anticubital Right Blood Culture - Final No growth in 5 days. 09/13/18 00:45 Blood Culture (Wb) - Port Blood Culture - Final No growth in 5 days. 09/15/18 23:53 Sputum, Expectorated/Coughed Gram Stain - Final 09/15/18 23:53 Sputum, Expectorated/Coughed Respiratory Culture - Final Presumptive C albicans Laboratory Results 09/19/18 05:40: Total Bilirubin 0.90, Direct Bilirubin 0.46 H, AST 50 H, ALT 156 H, Alkaline Phosphatase 139 H, Total Protein 6.4, Albumin 2.1 L, Globulin 4.3 H 09/20/18 05:16: WBC 10.8, RBC 4.24 L, Hgb 9.5 L, Hct 31.9 L, MCV 75.2 L, MCH 22.4 L, MCHC 29.8 L, RDW 17.9 H, RDW Differential 46.0 H, Plt Count 381, MPV 9.1 09/20/18 05:16: Sodium 137, Potassium 4.0, Chloride 103, Carbon Dioxide 26.0, Anion Gap 8, BUN 19 H, Creatinine 0.76, Estim Creat Clear Calc 115.00, Est GFR (MDRD) Af Amer 140, Est GFR (MDRD) Non-Af 116, BUN/Creatinine Ratio 24.9 H, Glucose 88, Calcium 7.8 L Current Medications Acetaminophen (Tylenol) 650 mg PO Q6H PRN PRN PRN Reason: PAIN Last Admin: 09/17/18 02:23 Dose: 650 mg Al Hydroxide/Mg Hydroxide (Mylanta Ii) 15 ml PO Q4H PRN PRN PRN Reason: HEARTBURN Last Admin: 09/15/18 07:49 Dose: 15 ml Albuterol Sulfate (Ventolin Aerosols) 2.5 mg INHALATION Q2H PRN PRN PRN Reason: SHORTNESS OF BREATH Apixaban (Eliquis) 10 mg PO BID [facility] Last Admin: 09/20/18 10:04 Dose: 10 mg Carvedilol (Coreg) 6.25 mg PO BID [facility] Last Admin: 09/20/18 10:03 Dose: 6.25 mg Clonazepam (Klonopin) 0.5 mg PO BID PRN PRN PRN Reason: ANXIETY Furosemide (Lasix) 40 mg PO BID@1000,1800 [facility] Last Admin: 09/20/18 10:03 Dose: 40 mg Guaifenesin (Mucinex) 1,200 mg PO BID [facility] Last Admin: 09/20/18 10:04 Dose: 1,200 mg Magnesium Hydroxide (Milk Of Magnesia) 30 ml PO DAILY PRN PRN PRN Reason: Constipation Ondansetron HCl (Zofran) 4 mg IV Q8H PRN PRN PRN Reason: Nausea Potassium Chloride (K-Dur) 20 meq PO BIDCM [facility] Last Admin: 09/20/18 08:03 Dose: 20 meq Sodium Chloride () 5 - 15 ml IV UD PRN PRN Reason: SALINE FLUSH Last Admin: 09/18/18 16:35 Dose: 10 ml Throat Lozenges (Cepacol Sore Throat Lozenge) 2 lozenge MUCOUS MEM Q2H PRN PRN PRN Reason: COUGH Last Admin: 09/19/18 13:10 Dose: 2 lozenge Medical Necessity - Tobacco Use Smoking Status: Former smoker Assessment/Plan All Active Problems (Last Updated 09/13/18 @ 01:09 by Mitul Rubin MD) Community acquired pneumonia (Acute) Sepsis (Acute) DVT, popliteal, acute (Acute) Pulmonary embolism (Acute) CHF (congestive heart failure) (Acute) 48-year-old male admitted with progressive shortness of breath and found to have PE/pulmonary infarct. 1. Submassive bilateral pulmonary embolism, DVT, pulmonary infarct, stable vitals, on Eliquis. 2. Acute systolic heart , severe, EF 10%, apical thrombus, being followed by cardiology, will continue to monitor. 3. Hypertension, BP are stable, will continue to monitor. 4. Anxiety disorder, likely situational, on clonazepam prn 5. Morbid obesity with BMI of 42.1 6. Suspected sleep apnea, needs sleep study following his discharge 7. Debility secondary to current concurrent medical issues, awaiting discharge to SNF. 8. DVT PPx- Eliquis. Code Visit Inpatient E&M: 68221 Subs Hosp L2
--- NOTE | 2018-09-20 14:37 | NURSING ---
Pt states feels more SOB. Sats 88-89% on 2L, increased O2 to 4L and pt sats 89-90%. BP 103/60. Will continue to monitor.
[2018-09-20] MEDS: BENZOCAINE/MENTHOL 1 LOZENGE 2 LOZENGE MUCOUS MEM (21:18)
[2018-09-21] VITALS (13 sets, daily range): BP systolic 112–127; BP diastolic 69–82; PULSE 90–101; RESP 17–20; TEMP 36.6–37.2; O2SAT 91–98
[2018-09-21 06:59] LABS: Anion Gap 7 (5-15); BUN 17 mg/dL (7-18); BUN/Creat Ratio 21.4 RATIO (10-20); Chloride 105 mmol/L (98-107); EST Glomerular Filtration Rate 110 mL/min (>60); Est Glom Filt Rate - Afr Amer 134 mL/min (>60); Estimated Creatinine Clearance 109.25 ml/min; Glucose 95 mg/dL (74-106); Potassium 4.2 mmol/L (3.5-5.1); Sodium Level 139 mmol/L (136-145)
[2018-09-21] MEDS: APIXABAN 5 MG TABLET 10 MG PO ×2 (09:47→21:04)
[2018-09-21] MEDS: guaiFENesin 1,200 MG Tablet 1200 MG PO ×2 (09:48→21:04)
[2018-09-21] MEDS: Carvedilol 6.25 MG Tablet PO ×2 (09:48→21:04)
[2018-09-21] MEDS: Furosemide 40 MG Tablet PO ×2 (09:48→17:06)
--- NOTE | 2018-09-21 22:50 | PN_ITS ---
Patient Problems: Active and Suspected Problems (Last Updated 09/13/18 @ 01:09 by Mitul Rubin MD) Community acquired pneumonia (Acute) Sepsis (Acute) DVT, popliteal, acute (Acute) Pulmonary embolism (Acute) CHF (congestive heart failure) (Acute) Subjective: Patient seen and examined. Coughing up a lot of purulent sputum with dark blood. Denies any worsening chest pain no shortness of breath. He is beginning to feel much better. Objective: General: Alert, Oriented x3, Cooperative,obese - - on 1- 2L oxygen, in mild respiratory distress HEENT: Atraumatic, PERRLA, EOMI, Normocephalic Oral: Moist Mucosa Neck: Supple Lungs: Normal air movement, Diminished Cardiovascular: Regular rate, Regular Rhythm, Normal S1, Normal S2 Abdomen: Bowel Sounds Present, Soft, Non Tender, Non-Distended, No Hepato- splenomegaly Extremities: - - MARY wraps to bilateral legs Skin: No rashes, No breakdown Musculoskeletal: No Tenderness to Palpation of Joints or Extremities Neurological: Cranial nerves II-XII grossly intact, Neuro grossly intact Psych/Mental Status: Normal Affect, Appropriate Vitals/I&O's: Vital Signs Temp Pulse Resp BP Pulse Ox 98.1 F 97 17 112/82 H 96 09/21/18 21:00 09/21/18 21:00 09/21/18 21:00 09/21/18 21:00 09/21/18 21:00 Oxygen Flow Rate (L/min) 2 Oxygen Delivery Method Room Air Weight: 115.7 kg Body Mass Index (BMI) 42.0 Intake and Output for Last 24 Hours 09/19/18 09/20/18 09/21/18 23:59 23:59 23:59 Intake Total 1000 / 1000 1140 / 1140 960 / 960 Output Total 1050 / 1050 2225 / 2225 2675 / 2675 Balance -50 / -50 -1085 / -1085 -1715 / -1715 Laboratory Results 09/21/18 06:24: Sodium 139, Potassium 4.2, Chloride 105, Carbon Dioxide 27.0, Anion Gap 7, BUN 17, Creatinine 0.80, Estim Creat Clear Calc 109.25, Est GFR (MDRD) Af Amer 134, Est GFR (MDRD) Non-Af 110, BUN/Creatinine Ratio 21.4 H, Glucose 95, Calcium 8.0 L Current Medications Acetaminophen (Tylenol) 650 mg PO Q6H PRN PRN PRN Reason: PAIN Last Admin: 09/17/18 02:23 Dose: 650 mg Al Hydroxide/Mg Hydroxide (Mylanta Ii) 15 ml PO Q4H PRN PRN PRN Reason: HEARTBURN Last Admin: 09/15/18 07:49 Dose: 15 ml Albuterol Sulfate (Ventolin Aerosols) 2.5 mg INHALATION Q2H PRN PRN PRN Reason: SHORTNESS OF BREATH Apixaban (Eliquis) 10 mg PO BID [facility] Last Admin: 09/21/18 21:04 Dose: 10 mg Carvedilol (Coreg) 6.25 mg PO BID [facility] Last Admin: 09/21/18 21:04 Dose: 6.25 mg Clonazepam (Klonopin) 0.5 mg PO BID PRN PRN PRN Reason: ANXIETY Furosemide (Lasix) 40 mg PO BID@1000,1800 [facility] Last Admin: 09/21/18 17:06 Dose: 40 mg Guaifenesin (Mucinex) 1,200 mg PO BID [facility] Last Admin: 09/21/18 21:04 Dose: 1,200 mg Magnesium Hydroxide (Milk Of Magnesia) 30 ml PO DAILY PRN PRN PRN Reason: Constipation Ondansetron HCl (Zofran) 4 mg IV Q8H PRN PRN PRN Reason: Nausea [facility] Last Admin: 09/21/18 17:06 Dose: 20 meq Sodium Chloride () 5 - 15 ml IV UD PRN PRN Reason: SALINE FLUSH Last Admin: 09/18/18 16:35 Dose: 10 ml Throat Lozenges (Cepacol Sore Throat Lozenge) 2 lozenge MUCOUS MEM Q2H PRN PRN PRN Reason: COUGH Last Admin: 09/20/18 21:18 Dose: 2 lozenge Medical Necessity - Tobacco Use Smoking Status: Former smoker Assessment/Plan All Active Problems (Last Updated 09/13/18 @ 01:09 by Mitul Rubin MD) Community acquired pneumonia (Acute) Sepsis (Acute) DVT, popliteal, acute (Acute) Pulmonary embolism (Acute) CHF (congestive heart failure) (Acute) 48-year-old male admitted with progressive shortness of breath and found to have PE/pulmonary infarct. 1. Submassive bilateral pulmonary embolism, DVT, pulmonary infarct, stable vitals, on Eliquis. 2. Acute systolic heart , severe, EF 10%, apical thrombus, being followed by cardiology, will continue to monitor. 3. Hypertension, BP are stable, will continue to monitor. 4. Anxiety disorder, likely situational, on clonazepam prn 5. Morbid obesity with BMI of 42.1 6. Suspected sleep apnea, needs sleep study following his discharge 7. Debility secondary to current concurrent medical issues, awaiting discharge to SNF. 8. DVT PPx- Eliquis. Code Visit Inpatient E&M: 89125 Subs Hosp L2
[2018-09-22] VITALS (11 sets, daily range): BP systolic 110–117; BP diastolic 63–79; PULSE 88–97; RESP 18; TEMP 36.6–37.5; O2SAT 93–98
[2018-09-22] MEDS: BENZOCAINE/MENTHOL 1 LOZENGE 2 LOZENGE MUCOUS MEM ×3 (02:56→17:20)
[2018-09-22 06:58] LABS: ALB/GLOB Ratio 0.5 RATIO (0.9-2.4); AST(SGOT) 47 U/L (15-37); Alanine Aminotransfer ALT/SGPT 100 U/L (16-61); Albumin, Serum 2.1 g/dL (3.2-5.0); Alkaline Phosphatase 144 U/L (45-117); Anion Gap 8 (5-15); BUN 18 mg/dL (7-18); BUN/Creat Ratio 22.6 RATIO (10-20); Calcium,Total 7.9 mg/dL (8.5-10.1); Chloride 105 mmol/L (98-107); EST Glomerular Filtration Rate 110 mL/min (>60); Est Glom Filt Rate - Afr Amer 133 mL/min (>60); Estimated Creatinine Clearance 109.25 ml/min; Globulin 4.3 g/dL (2.2-4.2); Glucose 101 mg/dL (74-106); Potassium 4.5 mmol/L (3.5-5.1); Protein, Total 6.4 g/dL (6.4-8.2); Sodium Level 138 mmol/L (136-145)
--- NOTE | 2018-09-22 07:59 | PCM.PN.HOSP ---
Patient Problems: Active and Suspected Problems (Last Updated 09/13/18 @ 01:09 by Mitul Rubin MD) Community acquired pneumonia (Acute) Sepsis (Acute) DVT, popliteal, acute (Acute) Pulmonary embolism (Acute) CHF (congestive heart failure) (Acute) Subjective: Patient was seen and examined. Denies any new complaints. Off oxygen. Objective: Physical exam: General: Alert, Oriented x3, Cooperative,obese HEENT: Atraumatic, PERRLA, EOMI, Normocephalic Oral: Moist Mucosa Neck: Supple Lungs: Normal air movement, Diminished Cardiovascular: Regular rate, Regular Rhythm, Normal S1, Normal S2 Abdomen: Bowel Sounds Present, Soft, Non Tender, Non-Distended, No Hepato-splenomegaly Extremities: - - MARY wraps to bilateral legs Skin: No rashes, No breakdown Musculoskeletal: No Tenderness to Palpation of Joints or Extremities Neurological: Cranial nerves II-XII grossly intact, Neuro grossly intact Psych/Mental Status: Normal Affect, Appropriate Vitals/I&O's: Vital Signs Temp Pulse Resp BP Pulse Ox 97.9 F 96 18 114/79 96 09/22/18 03:05 09/22/18 07:27 09/22/18 03:05 09/22/18 03:05 09/22/18 03:05 Oxygen Flow Rate (L/min) 2 Oxygen Delivery Method Room Air Weight: 113.4 kg Body Mass Index (BMI) 42.0 Intake and Output for Last 24 Hours 09/20/18 09/21/18 09/22/18 23:59 23:59 23:59 Intake Total 1140 / 1140 960 / 960 580 / 580 Output Total 2225 / 2225 2675 / 2675 990 / 990 Balance -1085 / -1085 -1715 / -1715 -410 / -410 Laboratory Results 09/22/18 06:00: Sodium 138, Potassium 4.5, Chloride 105, Carbon Dioxide 25.0, Anion Gap 8, BUN 18, Creatinine 0.80, Estim Creat Clear Calc 109.25, Est GFR (MDRD) Af Amer 133, Est GFR (MDRD) Non-Af 110, BUN/Creatinine Ratio 22.6 H, Glucose 101, Calcium 7.9 L, Total Bilirubin 0.70, AST 47 H, ALT 100 H, Alkaline Phosphatase 144 H, Total Protein 6.4, Albumin 2.1 L, Globulin 4.3 H, Albumin/Globulin Ratio 0.5 L Current Medications Acetaminophen (Tylenol) 650 mg PO Q6H PRN PRN PRN Reason: PAIN Last Admin: 09/17/18 02:23 Dose: 650 mg Al Hydroxide/Mg Hydroxide (Mylanta Ii) 15 ml PO Q4H PRN PRN PRN Reason: HEARTBURN Last Admin: 09/15/18 07:49 Dose: 15 ml Albuterol Sulfate (Ventolin Aerosols) 2.5 mg INHALATION Q2H PRN PRN PRN Reason: SHORTNESS OF BREATH Apixaban (Eliquis) 10 mg PO BID [facility] Last Admin: 09/21/18 21:04 Dose: 10 mg Carvedilol (Coreg) 6.25 mg PO BID [facility] Last Admin: 09/21/18 21:04 Dose: 6.25 mg Clonazepam (Klonopin) 0.5 mg PO BID PRN PRN PRN Reason: ANXIETY Furosemide (Lasix) 40 mg PO BID@1000,1800 [facility] Last Admin: 09/21/18 17:06 Dose: 40 mg Guaifenesin (Mucinex) 1,200 mg PO BID [facility] Last Admin: 09/21/18 21:04 Dose: 1,200 mg Magnesium Hydroxide (Milk Of Magnesia) 30 ml PO DAILY PRN PRN PRN Reason: Constipation Ondansetron HCl (Zofran) 4 mg IV Q8H PRN PRN PRN Reason: Nausea [facility] Last Admin: 09/21/18 17:06 Dose: 20 meq Sodium Chloride () 5 - 15 ml IV UD PRN PRN Reason: SALINE FLUSH Last Admin: 09/18/18 16:35 Dose: 10 ml Throat Lozenges (Cepacol Sore Throat Lozenge) 2 lozenge MUCOUS MEM Q2H PRN PRN PRN Reason: COUGH Last Admin: 09/22/18 02:56 Dose: 1 lozenge Medical Necessity - Tobacco Use Smoking Status: Former smoker Assessment/Plan All Active Problems (Last Updated 09/13/18 @ 01:09 by Mitul Rubin MD) Community acquired pneumonia (Acute) Sepsis (Acute) DVT, popliteal, acute (Acute) Pulmonary embolism (Acute) CHF (congestive heart failure) (Acute) 48-year-old male admitted with progressive shortness of breath and found to have PE/pulmonary infarct. 1. Submassive bilateral pulmonary embolism, DVT, pulmonary infarct, stable vitals, on Eliquis. 2. Acute systolic heart failure, severe, EF 10%, apical thrombus, on Eliquis, Lasix, cardiology consulted, will continue to monitor. 3. Hypertension, BP is controlled, will continue on home regimen. 4. Anxiety disorder, likely situational, on clonazepam prn 5. Morbid obesity with BMI of 42.1, diet and exercises recommended for later. 6. Suspected sleep apnea, needs sleep study following his discharge 7. Debility secondary to current concurrent medical issues, awaiting discharge to SNF. 8. DVT PPx- Eliquis. 9. Disposition: Waiting on SNF/Medicaid application Code Visit Inpatient E&M: 70458 Subs Hosp L2
[2018-09-22] MEDS: Carvedilol 6.25 MG Tablet PO ×2 (09:59→20:55)
[2018-09-22] MEDS: Furosemide 40 MG Tablet PO ×2 (09:59→17:12)
[2018-09-22] MEDS: APIXABAN 5 MG TABLET 10 MG PO ×2 (10:00→20:56)
[2018-09-22] MEDS: guaiFENesin 1,200 MG Tablet 1200 MG PO ×2 (12:14→20:56)
--- NOTE | 2018-09-22 14:44 | CASEMGMT ---
SHANTAL has called [employer] several times today and they are apparently closed for the holiday. Patient did get an address for SHANTAL to put down for residence. SHANTAL added this to his Medicaid application and had patient sign it. SHANTAL then faxed it to [facility]. SHANTAL will contact [facility] and let them know patient is a resident of [facility] so disregard the Medicaid application. Plan: CC once a pending Medicaid number is received as well as level of care from [facility]. Maritza FRAZIER MSW
--- NOTE | 2018-09-22 15:07 | CASEMGMT ---
Updates sent to [facility]. Maritza FRAZIER FEEDER DRIVER
[2018-09-23] VITALS (7 sets, daily range): BP systolic 114–129; BP diastolic 66–83; PULSE 89–97; RESP 16–18; TEMP 36.4–36.7; O2SAT 93–99
--- NOTE | 2018-09-23 08:46 | PCM.TXEXTCAR ---
- Diet 09/13/18 00:54 Diet: Cardiac/Low Cholesterol Food consistency:: Regular Liquid Consistency:: Regular/Thin - Routine Orders/Code Status Routine Lab Work: CBC - within 3 days, BMP - within 3 days Code Status: Full Code - Therapies Physical Therapy: Eval and Treat Occupational Therapy: Eval and Treat - Allergies/Procedures Done in Hospital Allergies/Adverse Reactions: Allergies lisinopril Allergy (Verified 09/01/18 19:43) Angioedema Procedures: 2-D Echocardiogram - Type of Care/Length of Stay Estimated LOS: Convalescent Care Less Than 30 days Type of Care Needed: Skilled Rehab Potential: Good Prognosis: Good - Additional Orders/Day of Discharge Day of Discharge: 09/23/18 - Dietary and Speech Recommendations Dietitian Recommendations/Changes: Suggest diet change to cardiac/low sodium with FR as needed. - Follow Up Care Primary Care Physician: Manuel Willard,Out of [Primary Care Provider] - Please follow up with your Primary Care Physician in: within 2 weeks of discharge
--- NOTE | 2018-09-23 08:48 | DS.PCM_ITS ---
Discharge Date and Diagnosis Date of Admission: 09/12/18 Date of Discharge: 09/23/18 - Primary Discharge Diagnosis Active and Suspected Problems (Last Updated 09/13/18 @ 01:09 by Mitul Sism MD) Pulmonary infarct DVT, popliteal, acute (Acute) Pulmonary embolism (Acute), submassive, bilateral CHF (congestive heart failure) (Acute) Anxiety disorder Morbid obesity Suspected sleep apnea Debility Hospital Course and Treatment Imaging Results: Clinical Impression(s) from Imaging Studies Chest X-Ray 09/12/18 21:58 IMPRESSION: No acute pulmonary process, no interval change Electronically Signed: Darryl Brambila MD at 23:00 EST , Service support , Chest CT 09/13/18 00:53 IMPRESSION: Pulmonary emboli in bilateral lower lobes, right middle lobe, and bilateral upper lobes. Largest embolus is in the right inferior pulmonary artery with associated occlusion of right lower lobe pulmonary arterial branches. There is evidence for least mild right ventricular strain. Right lower lobe pulmonary consolidation, suspicious for pulmonary infarction, or less likely pneumonia. Cardiomegaly. Coronary artery atherosclerosis. Mild mediastinal and right hilar lymphadenopathy. Old granulomatous disease. Ascites within visualized upper abdomen. N.B. : The above information has been verbally conveyed by Cem Jefferson MD to MITUL SIMS MD, on 09/13/2018 03:00:13 (ET). Electronically Signed: Cem Jefferson MD at 2:13 EST , Service support , Abdomen/Pelvis CT 09/13/18 09:13 IMPRESSION: Dense consolidation in the right lower lobe. Small amount of ascites. Electronically Signed: Cristiano Warren MD at 15:17 EST Tel [phone], Service support , Brain CT 09/14/18 08:19 IMPRESSION: Normal unenhanced CT scan of the brain. Electronically Signed: Cristiano Warren MD at 9:30 EST Tel [phone], Service support , Pulmonology Cardiology Operations: None Procedures: 2-D Echocardiogram Summary of Care Provided: 48-year-old male admitted with progressive shortness of breath and found to have PE/pulmonary infarct. His management included the following. 1. Submassive bilateral pulmonary embolism, DVT, pulmonary infarct, Echocardiogram demonstrates severe LV dysfunction with an EF of 10%, LV apical clot, and at least moderate pulmonary hypertension with an RVSP of at least 52 mmHg. H was discharged on Eliquis. 2. Acute systolic heart failure, severe, EF 10%, apical thrombus, on Eliquis, Lasix, cardiology consulted, did not recommend stress test, further workup planned after repeat 2d-echo. He will need a diagnostic cardiac cath later. 3. Hypertension, BP remained stable. 4. Anxiety disorder, likely situational, was on clonazepam prn 5. Morbid obesity with BMI of 42.1, diet and exercises recommended for later. 6. Suspected sleep apnea, needs sleep study following his discharge 7. Debility secondary to current concurrent medical issues, awaiting discharge to SNF. Subjective: On the day of discharge, patient had no complains. Denied chest pain, SOB. Objective: Physical exam: General: Alert, Oriented x3, Cooperative,obese HEENT: Atraumatic, PERRLA, EOMI, Normocephalic Oral: Moist Mucosa Neck: Supple Lungs: Normal air movement, Diminished Cardiovascular: Regular rate, Regular Rhythm, Normal S1, Normal S2 Abdomen: Bowel Sounds Present, Soft, Non Tender, Non-Distended, No Hepato- splenomegaly Extremities: - - MARY wraps to bilateral legs Skin: No rashes, No breakdown Musculoskeletal: No Tenderness to Palpation of Joints or Extremities Neurological: Cranial nerves II-XII grossly intact, Neuro grossly intact Psych/Mental Status: Normal Affect, Appropriate - Physical Exam Vital Signs Temp Pulse Resp BP Pulse Ox 98.0 F 95 18 129/83 H 94 09/23/18 03:00 09/23/18 07:11 09/23/18 03:00 09/23/18 03:00 09/23/18 07:15 Oxygen Flow Rate (L/min) 2 Oxygen Delivery Method Room Air Weight: 111.7 kg Body Mass Index (BMI) 42.0 Intake and Output for Last 24 Hours 09/21/18 09/22/18 09/23/18 23:59 23:59 23:59 Intake Total 960 / 960 1060 / 1060 240 / 240 Output Total 2675 / 2675 1790 / 1790 2150 / 2150 Balance -1715 / -1715 -730 / -730 -1910 / -1910 Discharge Diet: Low fat/ Low Cholesterol, 2000 mg Sodium Diet Discharge Activity: Return to Normal Activity Home Medications: Medications to take at Discharge Acetaminophen [Tylenol Tablet] 650 mg PO Q6H PRN PRN tablet 09/23/18 Albuterol Aerosols [Ventolin Aerosols] 2.5 mg INHALATION Q2H PRN PRN vial.neb. 09/23/18 Apixaban [Eliquis] 5 mg PO BID tablet 09/23/18 Carvedilol [Coreg (Beta Andrade)] 6.25 mg PO BID tablet 09/23/18 Furosemide [Lasix] 40 mg PO BID@1000,1800 tablet 09/23/18 Guaifenesin [Mucinex] 1,200 mg PO BID PRN tablet 09/23/18 Potassium Chloride [K-Dur] 20 meq PO BIDCM tablet 09/23/18 Primary Care Physician: Manuel Doctor,Out of [Primary Care Provider] - Please follow up with your Primary Care Physician in: within 2 weeks of discharge Disposition: Snf facility Minutes spent on discharge:: 40 Patient Condition:: Stable Medical Necessity - Tobacco Use Smoking Status: Former smoker Tobacco Use: Non-smoker Meaningful Use Info Meaningful Use Diagnoses (Choose all that apply): CHF - CHF MARY/ARB ordered at discharge?: No Reason MARY/ARB not ordered?: Allergy Documented LVEF (%): 10 Code Visit Inpatient E&M: 48094 Disch Hosp
[2018-09-23] MEDS: Carvedilol 6.25 MG Tablet PO (08:54)
[2018-09-23] MEDS: Furosemide 40 MG Tablet PO (08:54)
[2018-09-23] MEDS: guaiFENesin 1,200 MG Tablet 1200 MG PO (08:54)
[2018-09-23] MEDS: APIXABAN 5 MG TABLET PO (08:56)
--- NOTE | 2018-09-23 08:56 | CASEMGMT ---
SHANTAL received pending Medicaid number, [id number]. SHANTAL faxed all necessary information to [facility] to obtain a level of care. Once that is received, which should be today. SHANTAL will set up transportation. Maritza HARTLEY
--- NOTE | 2018-09-23 10:52 | CASEMGMT ---
SHANTAL called [facility] and arranged for patient to get picked up at 5p via [employer] van. SHANTAL notified RN, patient, corporation secretary, and Harriet at [facility]. Completed convalescent on HENS. Patient was upset that he will be discharged without knowing for sure if he qualifies for Medicaid. SHANTAL told him that unfortunately it does not work that way. It takes awhile for [facility] to gather all the necessary information to determine if he qualifies for sure. SHANTAL told him he cannot stay in the hospital waiting on this as it could be a month and the hospital bill would be more than his half-way bill. SHANTAL asked if he was ok with SHANTAL calling his friend, Binu Abad, and letting him know where he is going. He said that is fine and gave SW his phone number. SHANTAL called Binu and told him patient is going to [facility] today at 5p. SHANTAL gave him the name, address, and phone number of [facility]. SHANTAL had also asked patient if he would like to call his nieces. He said he would do that himself. SHANTAL also asked RN to see if patient's dinner can come early so he can eat before he leaves at 5p. She said this would not be a problem. Plan: [facility] under pending Medicaid number ([id number]). Intermediate level of care on a convalescent stay. [facility] to transport via [employer] van at 5p. Maritza HARTLEY
--- NOTE | 2018-09-23 11:44 | CASEMGMT ---
SW received level of care from [facility]. A copy was faxed to [facility]. Plan: d/c to [facility] under pending Medicaid, intermediate level of care. [facility] transport via van. Maritza FRAZIER MSW
[2018-09-23] MEDS: BENZOCAINE/MENTHOL 1 LOZENGE 2 LOZENGE MUCOUS MEM (12:50)
--- NOTE | 2018-09-23 16:54 | NURSING ---
gave report to Andria at [facility]
== END 2018-09-23 16:39 | disposition intermediate care facility (04) | DRG 175 ==
LOC: ED 23:55 → MS3 09-13 00:01 → PCU 09-14 07:45
PROVIDERS: Internal Medicine; Internal Medicine Critical Care Medicine; Admitting Provider Hospitalist; Emergency Provider Emergency Medicine; Visit Provider Internal Medicine
DX: I26.99 Other pulmonary embolism without acute cor pulmonale (principal); I50.21 Acute systolic (congestive) heart failure; Z68.41 Body mass index [BMI] 40.0-44.9, adult; R04.2 Hemoptysis; R18.8 Other ascites; I82.431 Acute embolism and thrombosis of right popliteal vein; Z87.891 Personal history of nicotine dependence; Z88.8 Allergy status to other drugs, medicaments and biological substances; E66.01 Morbid (severe) obesity due to excess calories; I51.3 Intracardiac thrombosis, not elsewhere classified; I11.0 Hypertensive heart disease with heart failure; B97.89 Other viral agents as the cause of diseases classified elsewhere; J06.9 Acute upper respiratory infection, unspecified; I27.20 Pulmonary hypertension, unspecified; R53.81 Other malaise; F41.9 Anxiety disorder, unspecified; G47.30 Sleep apnea, unspecified
CPT/HCPCS: 36415; 70450; 71046; 71260; 74176; 80048; 80053; 80076; 82140; 83605; 83735; 83880; 84484; 85025; 85027; 85610; 85730; 86738; 87040; 87070; 87205; 87449; 87633; 93005; 93306; 93970; 94002; 94003; 94640; 94667; 97110; 97162; 97165; 97530; 97535; 97802; 99284; J7030; J7040; Q9957; Q9967; A4216; J1940

== ENCOUNTER 2018-09-27 17:00 | Emergency (ER) | payer SELFPAY ==
[2018-09-13 02:09] VITALS: BMI 42.0
[2018-09-27 17:03] VITALS: BP 116/77; PULSE 104; RESP 20; TEMP 36.7; O2SAT 97; BMI 36.7
--- NOTE | 2018-09-27 17:51 | CM.ED ---
SOCIAL WORK NOTE: PT REQUESTED TO SPEAK WITH THIS WORKER. PT STATES WAS D/C'ED FROM [facility] THIS DAY WITHOUT PROPER DISCHARGE NEEDS MET. PT STATES IS CONCERNED ABOUT MEDICATIONS, MEDICAL CONDITION, AND STATES NO FOLLOW UP IN PLACE. PT TO COMPLETE ED WORKUP. PT GAVE PERMISSION FOR THIS WORKER TO CALL [facility] FOR CONTINUITY OF CARE. CALL TO MECHE, STAFF DEVELOPMENT NURSE AT [facility]. WORKER STATES SHE AND MOLD HOISTER MET WITH PT THIS DAY TO DISCUSS D/C PLANNING. MECHE STATES PT IS PENDING MEDICAID AND CONSIDERED PRIVATE PAY AT FACILITY. MECHE REPORTS PT WAS DID NOT REQUIRE THERAPY, LONG TERM, AND WAS INDEPENDENT WITH ALL ADLS. MECHE STATES IT WAS DISCUSSED WITH PHYSICIAN AND PT DID NOT HAVE A MEDICAL REASON TO STAY IN FACILITY ANY LONGER. MECHE STATES PT WAS ADAMANT ABOUT LEAVING FACILITY THIS DAY. MECHE REPORTS PT WAS DISCHARGED WITH ALL MEDICATIONS AND PRESCRIPTIONS. WILL UPDATE ED PHYSICIAN ON THE ABOVE AND CONTINUE TO FOLLOW IF NEEDED. ERIK DANIEL, [employer]ICO ARCHITECT, JOB DEVELOPER.
--- NOTE | 2018-09-27 18:17 | ED.VISSUMM ---
- ER Visit Summary Date of Service: 09/27/18 Chief Complaint: Kicked out of assisted History of Present Illness: The patient is a 48 M presenting stating that he was kicked out of a assisted today. He states that they told him that he no longer required assisted placement. He has been tolerating physical therapy. He is not on oxygen. He has been functioning independently at the assisted. He was recently admitted to [facility] from 09/12-09/23. At that time he was found to have bilateral PEs, DVT, LV apical clot clot with low ejection fraction. He is currently on Eliquis. He states he has mild shortness of breath which is no worse than usual. He denies chest pain. Denies other complaints. Physical Examination: Vitals are stable. Patient is afebrile. Alert no acute distress. HEENT exam is unremarkable. Neck is supple. Lungs are clear and equal bilaterally. Heart is regular rate and rhythm. Abdomen is soft nontender nondistended. Extremities are unremarkable. Skin is warm and dry. No focal neurologic deficit. Remainder of exam is unremarkable. Emergency Department Course and Treatment: Patient is asymptomatic on room air. He was ambulated and has a pulse ox of 96% on room air. He states he was confused about how to take his medications and who to follow-up with so he presented back to the ED. Social work discussed at length with the patient all of his discharge instructions. He will follow-up with Mayra Moreira and Dr. Brothers. He is advised to return to the ED for any worsening complaints. Disposition: Discharge home Impression: Shortness of breath, recent PE This note was generated with [employer] dictation software. It may contain incorrect words, spelling, and punctuation that were not noted in review of the chart prior to signing ED Disposition - Plan for ED Patient: Chief Complaint: Shortness of Breath Instructions: Discharge Instructions for Pulmonary Embolism Referrals: Evans Brothers MD [STAFF PHYSICIAN] - Mayra Moreira [NON-STAFF] -
[2018-09-27 19:10] VITALS: O2SAT 95
--- NOTE | 2018-09-27 19:10 | CM.ED ---
Addendum entered by Comfort Alcaraz 09/27/18 20:01: [facility] PT STATES WILL BE RESIDING LOCALLY. WILL FOLLOW UP WITH REFERRAL ON 09/29/17. Original Note: SOCIAL WORK NOTE PT GIVEN INFORMATION ON [facility], LIST OF PRIMARY CARE PROVIDERS, AND CONTACT INFORMATION FOR [facility] DEPT OF JOB AND FAMILY SERVICES. PT REPORTS MEDICAID APPLICATION IS PENDING AND ENCOURAGED PT TO FOLLOW UP WITH [facility] ON THURSDAY. PT STATES IS GOING TO STAY WITH FAMILY MEMBER UPON D/C FROM ED, JALENER- MARLENE ELIAS [phone]. ALL QUESTIONS ANSWERED. PLAN: D/C HOME WITH A FAMILY MEMBER.
--- NOTE | 2018-09-27 19:21 | ED.DEP ---
ED Disposition - Plan for ED Patient: Chief Complaint: Shortness of Breath Instructions: Discharge Instructions for Pulmonary Embolism Referrals: Mayra Moreira [NON-STAFF] - Evans Brothers MD [STAFF PHYSICIAN] -
[2018-09-27 19:35] VITALS: BP 125/86; PULSE 100; RESP 18; O2SAT 100
--- NOTE | 2018-09-27 19:36 | ED.RN ---
PT EDUCATED ON D/C INSTRUCTIONS AND HOME GOING PAPERS. VOICES UNDERSTANDING AND DENIES ANY FURTHER QUESTIONS.
== END 2018-09-27 19:37 | disposition home or self-care (01) ==
LOC: ED 18:44
PROVIDERS: Emergency Provider Emergency Medicine
DX: R06.02 Shortness of breath (principal); I27.20 Pulmonary hypertension, unspecified; I50.9 Heart failure, unspecified; Z79.899 Other long term (current) drug therapy; Z86.711 Personal history of pulmonary embolism; Z86.718 Personal history of other venous thrombosis and embolism; Z79.02 Long term (current) use of antithrombotics/antiplatelets
CPT/HCPCS: 99282

== ENCOUNTER → 2018-10-22 11:57 | Outpatient (CLI) | payer MEDICAID, SELFPAY ==
[2018-10-08 12:45] VITALS: BMI 35.5
[2018-10-22 08:26] VITALS: BMI 33.8
[2018-10-22 12:42] VITALS: PULSE 102; PULSE 103; PULSE 104; PULSE 106; PULSE 93; PULSE 98; PULSE 99; O2SAT 94; O2SAT 95; O2SAT 96; O2SAT 97; O2SAT 98
--- NOTE | 2018-10-22 16:20 | PCM.PSN.6M ---
PSN 6 Minute Walk Test - 6 Minute Walk Test 6 Minute Walk Test: 6 Minute Walk Test PSN:6-Minute Walk Test Start: 10/22/18 12:42 Freq: Status: Active Protocol: [id number].6MINW Document 10/22/18 12:42 NADYA (Rec: 10/22/18 12:44 NADYA [id number]) 6 Minute Walk Test Date Performed 10/22/18 Time Performed 12:15 Height 5 ft 8 in Weight: 97.976 kg Weight in Pounds 216.[address]: Evelio Lucio Assistive device used: None Pre-test Oxygen Delivery Method Room Air Pulse Ox (%) 97 Pulse Rate (60-100 beats/min) 98 Dyspnea Pee Scale (0-10) 0.5 Exertion Pee Scale (6-20) 6 1st minute Oxygen Delivery Method Room Air Pulse Ox (%) 96 Pulse Rate (60-100 beats/min) 104 H 2nd minute Oxygen Delivery Method Room Air Pulse Ox (%) 96 Pulse Rate (60-100 beats/min) 104 H 3rd minute Oxygen Delivery Method Room Air Pulse Ox (%) 94 Pulse Rate (60-100 beats/min) 103 H 4th minute Oxygen Delivery Method Room Air Pulse Ox (%) 94 Pulse Rate (60-100 beats/min) 99 5th minute Oxygen Delivery Method Room Air Pulse Ox (%) 95 Pulse Rate (60-100 beats/min) 102 H 6th minute Oxygen Delivery Method Room Air Pulse Ox (%) 95 Pulse Rate (60-100 beats/min) 106 H Dyspnea Pee Scale (0-10) 2 Exertion Pee Scale (6-20) 13 Post-test Oxygen Delivery Method Room Air Pulse Ox (%) 98 Pulse Rate (60-100 beats/min) 93 Full Laps Walked 16 Partial Lap, Number of Tiles Walked 15 Total Distance Walked (ft) 959 - Interpretation Interpretation: The patient was able to ambulate 959 feet over the course of 6 minutes on room air with no assistive devices or breaks. The patient experience no significant desaturation or tachycardia during testing. These findings are consistent with a normal walking oximetry. - Recommendations Recommendations: No supplemental oxygen is indicated at this time
== END ==
PROVIDERS: Referring Provider Nurse Practitioner Acute Care; Visit Provider Nurse Practitioner Acute Care
DX: R06.00 Dyspnea, unspecified (principal)
CPT/HCPCS: 94618

== ENCOUNTER 2021-12-05 19:46 | Emergency (ER) | payer MEDICAID, SELFPAY ==
[2021-12-05 19:47] VITALS: BP 178/121; PULSE 95; RESP 18; TEMP 36.9; O2SAT 97; BMI 53.2
[2021-12-05 19:59] VITALS: BP 178/105
--- NOTE | 2021-12-05 20:12 | EKG12_ITS ---
Test Reason : HTN Blood Pressure : / mmHG Vent. Rate : 083 BPM Atrial Rate : 083 BPM P-R Int : 212 ms QRS Dur : 094 ms QT Int : 394 ms P-R-T Axes : 052 057 098 degrees QTc Int : 462 ms Sinus rhythm with 1st degree A-V block Nonspecific T wave abnormality Prolonged QT Abnormal ECG Confirmed by JOHNATHON BURKS, ZIA ([id number]), publications editor JESUS BABIN ([id number]) on 12/06/2021 2:30:03 PM Referred By: JAELYN Confirmed By:ZIA DIEGO MD
--- NOTE | 2021-12-05 20:16 | EDS_ITS ---
HPI <JED Wagner - Last Filed: 12/05/21 21:25> History of Present Illness Chief Complaint: Hypertension Narrative Narrative: 51-year-old male with PMH of HTN, HLD, DM2, CHF, PE on Xarelto presents with dizziness. He states over the last few months he has had dizzy episodes. He has a hard time describing them but states his head feels full and his body feels heavy. He feels like he may pass out and he becomes nauseated without vomiting. He denies headache or focal motor or sensory changes. Denies chest pain or shortness of breath. No syncope. The dizziness is exacerbated by moving his head. He feels off balance when he walks when this occurs. Today this happened about an hour ago while he was driving. He states this happened around 5 times and he has had multiple ER visits but nothing was found. He reports having a normal CT brain scan. 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 Rudd in [place] within the last month and had an echocardiogram and states his EF improved from the 30s to 46%. He takes carvedilol 12.5 mg twice a day and a month ago they added losartan 100 mg once daily. He did not yet take his evening beta kait dose. He has had some bilateral lower extremity swelling and takes spironolactone and furosemide. [facility] <JED Wagner - Last Filed: 12/05/21 21:25> [facility] Medical History (Updated 12/05/21 @ 21:23 by JED Wagner) Acute on chronic systolic (congestive) heart failure Cardiomyopathy in diseases classified elsewhere Community acquired pneumonia DVT, popliteal, acute LV (left ventricular) mural thrombus Non-rheumatic tricuspid valve insufficiency Obesity Pulmonary embolism with infarction (09/13/18) Secondary pulmonary arterial hypertension Sepsis Home Medications acetaminophen 650 mg PO Q6H PRN PRN tab 09/23/18 [Rx Last Taken Unknown] albuterol sulfate 2.5 mg INHALATION Q2H PRN PRN vial.neb. 09/23/18 [Rx Last Taken Unknown] apixaban 5 mg PO BID tab 09/23/18 [Rx Last Taken Unknown] carvedilol 6.25 mg PO BID tab 09/23/18 [Rx Last Taken Unknown] furosemide 40 mg PO BID@1000,1800 tab 09/23/18 [Rx Last Taken Unknown] guaifenesin 1,200 mg PO BID PRN tab 09/23/18 [Rx Last Taken Unknown] potassium chloride 20 meq PO BIDCM tab 09/23/18 [Rx Last Taken Unknown] carbamide peroxide [Debrox] 5 drp EACH EAR DAILY 7 Days ml 12/05/21 [Rx Last Taken Unknown] Allergy/AdvReac Type Severity Reaction Status Date / Time lisinopril Allergy Angioedema Verified 12/05/21 19:49 Family History Mother Diabetes Father Lung disease Surgical History No significant past surgical history Social History (Updated 12/30/18 @ 09:[address] Evelio Lucio, DO) Smoking Status: Former smoker quit date: 09/28/97 pack-years: 24 alcohol intake: never substance use type: does not use ROS <JED Wagner - Last Filed: 12/05/21 21:25> ROS ED ROS Narrative Constitutional: Negative for fever, chills, malaise. Eyes: Negative for visual change. ENT: Negative for sore throat, ear pain, rhinorrhea. CVS: Negative for palpitations, chest pain, syncope. Respiratory: Negative for shortness of breath, cough, orthopnea. GI: Positive for nausea. Negative for abdominal pain, vomiting, diarrhea, constipation, melena, hematochezia. : Negative for dysuria, hematuria or frequency. Neuro: Negative for headache, motor/sensory dysfunction. Skin: Negative for rash, abscess, or wound. Musc: Negative for joint pain, swelling, trauma. Heme: Negative for easy bruising, bleeding, lymphadenopathy. EXAM <JED Wagner - Last Filed: 12/05/21 21:25> Physical Exam Narrative Exam Narrative: CONST: Patient sitting in no acute distress. EYES: Normal inspection. PERRLA, EOMI, no visual field deficits, horizontal nystagmus. ENT: Normal inspection, moist mucous membranes. NECK: Normal inspection. RESP: No respiratory distress, CTAB. CVS: Regular rate and rhythm, no murmur, no gallop. ABD: Soft and nontender, no guarding or rebound, nondistended. SKIN: Color normal, no rash, warm, dry, intact. EXTREMITIES: Normal appearance, 2+ bilateral LE edema. NEURO: Oriented x4. 5/5 upper and lower extremity strength, normal sensation to light touch, 2+ radial and DP pulses. Normal yueahf-ez-fwaw and agmo-pf-qvyh testing. Normal gait although patient states he did become symptomatic with walking and have to sit down but there was no ataxia present. PSYCH: Normal affect. Const Vital Signs: 12/05/21 19:47 12/05/21 19:53 12/05/21 19:59 Temperature 98.4 F Temperature Source Temporal Pulse Rate 95 Respiratory Rate 18 Respiratory Effort Normal Non-Labored Blood Pressure 178/121 H 178/105 H Blood Pressure Mean 140 129 Pulse Ox 97 Oxygen Delivery Method Room Air 12/05/21 20:21 Temperature Temperature Source Pulse Rate 89 Respiratory Rate 15 Respiratory Effort Blood Pressure 171/93 H Blood Pressure Mean 119 Pulse Ox 98 Oxygen Delivery Method Room Air <Dr. Terrell Daily MD - Last Filed: 12/07/21 07:46> Physical Exam Const Vital Signs: 12/05/21 19:47 12/05/21 19:53 12/05/21 19:59 Temperature 98.4 F Temperature Source Temporal Pulse Rate 95 Respiratory Rate 18 Respiratory Effort Normal Non-Labored Blood Pressure 178/121 H 178/105 H Blood Pressure Mean 140 129 Pulse Ox 97 Oxygen Delivery Method Room Air 12/05/21 20:21 Temperature Temperature Source Pulse Rate 89 Respiratory Rate 15 Respiratory Effort Blood Pressure 171/93 H Blood Pressure Mean 119 Pulse Ox 98 Oxygen Delivery Method Room Air [facility] <JED Wagner - Last Filed: 12/05/21 21:25> [facility] Lab Data Lab results narrative: Patient presents with recurrent episodes of the dizziness described as a movement sensation when turning his head with nausea. He appears well nontoxic. He was hypertensive at 178/121, otherwise normal vital signs. He did not take his evening dose of antihypertensives yet. On exam pupils are equal and reactive. Extraocular motion intact with slight horizontal nystagmus. He does have bilateral cerumen impactions. He has a normal neurological exam and NIH is 0. He has had extensive work-up for the same symptoms in the past with a normal CT brain and cardiology work-up with an echo. He was given a home dose of his BP meds. CBC and BMP show no evidence of endorgan damage. EKG is sinus rhythm with no acute ischemia. His symptoms sound like vertigo and are likely due to cerumen impactions. He was treated with debrox drops and both ears were irrigated with some wax removal and improvement in dizziness and hearing. He was able to ambulate to the bathroom without feeling dizzy. He will be prescribed Debrox drops for home and states he has an ENT appointment in the next 2 weeks which he was encouraged to keep. Patient was discharged in stable condition. 1. Peripheral vertigo 2. Bilateral cerumen impactions Labs: Laboratory Results - last 24 hr 12/05/21 12/05/21 20:20 20:20 WBC 8.4 RBC 4.74 Hgb 13.2 Hct 40.2 MCV 84.8 MCH 27.8 MCHC 32.8 RDW Std Deviation 40.7 RDW Coeff of Louie 13.1 Plt Count 261 MPV 8.8 Immature Gran % (Auto) 1.200 H Neut % (Auto) 64.4 Lymph % (Auto) 22.7 [place] % (Auto) 7.8 Eos % (Auto) 3.4 Baso % (Auto) 0.5 Absolute Neuts (auto) 5.4 Absolute Lymphs (auto) 1.91 Nucleated RBC % 0 Sodium 137 Potassium 3.9 Chloride 104 Carbon Dioxide 28.0 Anion Gap 5 BUN 15 Creatinine 1.00 Estim Creat Clear Calc 81.71 Est GFR (MDRD) Af Amer 101 Est GFR (MDRD) Non-Af 84 BUN/Creatinine Ratio 15.0 Glucose 125 H Calcium 9.4 EKG Initial EKG: Attestation: I personally reviewed and interpreted this EKG as follows: Interpretation: Sinus Rhythm (Sinus rhythm with first-degree AV block, prolonged QT, no acute ischemic changes) <Dr. Terrell Daily MD - Last Filed: 12/07/21 07:46> [facility] MDM Narrative Medical decision making narrative: Patient presents because of elevated blood pressure and dizziness. When asked to define dizziness he is states he does not feel right and lightheaded. When specifically asked if he or the room was spinning he denied however when he turns his head to the right or left he becomes dizzy and nauseous and his stomach is upset . He equated to being off balance/motion. When asked if he felt like he got off a ride amusement park he responded yes. He also gives history of problem with cerumen impaction and decreased hearing. He presently complains of decreased hearing. He denies headache. He denies double vision blurred vision or loss of vision. Nuys trouble with speech or swallowing. He denies paresthesia, anesthesia or motor weakness. He denies any cardiac or respiratory symptoms. Patient's blood pressure is elevated. He is morbidly obese. HEENT exam is remarkable for cerumen impaction on the left and there is significant mount of cerumen on the right side. He does have decreased hearing. Cranials 2 through 12 are intact. Uvula midline. No deviation of the tongue with protrusion. Trachea is midline. There is no carotid bruit noted on the right or left. Heart is regular. There is no murmur, gallop or rub. Lungs are clear to auscultation. Patient has edema of his lower extremities. He has no dysmetria. He had a negative eye askew test and hent test. Unable to perform Rody-Hallpike maneuver because nurse was attempting to establish an IV. Motor and sensory are intact. Suspect patient's dizziness is due to cerumen impaction. Will have ears Debrox and irrigated. He was given his nighttime antihypertensive meds. Patient vertiginous symptoms resolved after cerumen impaction was treated. Lab Data Labs: Laboratory Results - last 24 hr 12/05/21 12/05/21 20:20 20:20 WBC 8.4 RBC 4.74 Hgb 13.2 Hct 40.2 MCV 84.8 MCH 27.8 MCHC 32.8 RDW Std Deviation 40.7 RDW Coeff of Louie 13.1 Plt Count 261 MPV 8.8 Immature Gran % (Auto) 1.200 H Neut % (Auto) 64.4 Lymph % (Auto) 22.7 [place] % (Auto) 7.8 Eos % (Auto) 3.4 Baso % (Auto) 0.5 Absolute Neuts (auto) 5.4 Absolute Lymphs (auto) 1.91 Nucleated RBC % 0 Sodium 137 Potassium 3.9 Chloride 104 Carbon Dioxide 28.0 Anion Gap 5 BUN 15 Creatinine 1.00 Estim Creat Clear Calc 81.71 Est GFR (MDRD) Af Amer 101 Est GFR (MDRD) Non-Af 84 BUN/Creatinine Ratio 15.0 Glucose 125 H Calcium 9.4 Discharge Plan Triage Chief Complaint: Hypertension ED Provider: Shayla Betancourt Dx/Rx/DC Orders Clinical Impression: Episodic peripheral vertigo, Bilateral impacted cerumen Instructions: Impacted Earwax, ED BPV Vertigo Prescriptions: New Debrox 6.5 % drops 5 drp EACH EAR DAILY 7 Days RF: 0 No Action furosemide 40 MG tablet 40 mg PO BID@1000,1800 RF: 0 acetaminophen 325 MG tablet 650 mg PO Q6H PRN PRN (Reason: Pain) RF: 0 carvedilol 6.25 MG tablet 6.25 mg PO BID RF: 0 albuterol sulfate 2.5 MG/3 ML solution for nebulization 2.5 mg Inhalation Q2H PRN PRN (Reason: SHORTNESS OF BREATH) RF: 0 potassium chloride 20 MEQ tablet 20 meq PO BIDCM RF: 0 guaifenesin 1,200 MG tablet 1,200 mg PO BID PRN (Reason: Cough) RF: 0 apixaban 5 MG tablet 5 mg PO BID RF: 0 Primary Care Provider: Care Physician,No Primary Referrals: Care Physician,No Primary [Primary Care Provider] - Activity Restrictions/Additional Instructions: Today your blood work and EKG look normal. Both of your ears were blocked with earwax which was partially irrigated. I prescribed Debrox drops for home. Use these in both ears every day to soften the wax and keep your follow-up appointment with the ENT doctor. Disposition Disposition: Home, Self Care Discharge Date/Time: 12/05/21 21:31
[2021-12-05 20:21] VITALS: BP 171/93; PULSE 89; RESP 15; O2SAT 98
[2021-12-05] MEDS: Carbamide Peroxide 15 ML Bottle 5 DRP OTIC (20:28)
[2021-12-05 20:29] LABS: Absolute Lymphocyte Count 1.91 X10^3/uL (0.83-4.51); Absolute Neutrophil Count 5.4 X10^3/uL (2.0-7.7); Basophil# 0.04 X10^3/uL; Basophil% 0.5 % (0-1); Eosinophil# 0.29 X10^3/uL; Eosinophils% 3.4 % (0-5); Hematocrit 40.2 % (40-54); Hemoglobin 13.2 g/dL (13.0-16.5); Lymphocyte # 1.91 X10^3/ul (0.83-4.51); Lymphocyte % 22.7 % (19-41); Mean Corp Hgb Conc 32.8 g/dL (32-36); Mean Corpuscular Hgb 27.8 pg (27.0-32.0); Mean Corpuscular Volume 84.8 fL (80-94); Mean Platelet Vol. 8.8 fl (6.2-12.0); Monocyte# 0.66 X10^3/uL; Monocyte% 7.8 % (0-10); NRBC Flagged by Analyzer 0 % (0-5); Neutrophil # 5.42 X10^3/uL (2.7-7.7); Neutrophil % 64.4 % (47-70); Platelet Count 261 K/mm3 (150-450); RBC Distribution Width CV 13.1 % (11.6-14.6); RBC Distribution Width SD 40.7 fl (35.1-43.9); Red Blood Count 4.74 M/mm3 (4.6-6.2); White Blood Count 8.4 K/mm3 (4.4-11.0)
[2021-12-05] MEDS: Carvedilol 12.5 MG Tablet PO (20:30)
[2021-12-05 20:42] LABS: Anion Gap 5 (5-15); BUN 15 mg/dL (7-18); Calcium,Total 9.4 mg/dL (8.5-10.1); Chloride 104 mmol/L (98-107); EST Glomerular Filtration Rate 84 mL/min (>60); Est Glom Filt Rate - Afr Amer 101 mL/min (>60); Estimated Creatinine Clearance 81.71 ml/min; Glucose 125 mg/dL (74-106); Potassium 3.9 mmol/L (3.5-5.1); Sodium Level 137 mmol/L (136-145)
--- NOTE | 2021-12-06 15:25 | CASEMGMT ---
[facility] ED follow-up: Date of ER visit: 12/05/2021 Presenting ER complaint: hypertension RN BOUBACAR placed call to patient's telephone number listed on demographics with no answer. Voice message left with call back information requesting return call if any questions, needs or concerns. W[facility] CM
== END 2021-12-05 21:31 | disposition home or self-care (01) ==
PROVIDERS: Emergency Provider Physician Assistant; Visit Provider Physician Assistant
DX: H81.399 Other peripheral vertigo, unspecified ear (principal); I11.0 Hypertensive heart disease with heart failure; I50.9 Heart failure, unspecified; I27.21 Secondary pulmonary arterial hypertension; I43 Cardiomyopathy in diseases classified elsewhere; E11.9 Type 2 diabetes mellitus without complications; E78.5 Hyperlipidemia, unspecified; Z87.891 Personal history of nicotine dependence; Z86.711 Personal history of pulmonary embolism; Z79.01 Long term (current) use of anticoagulants; Z86.718 Personal history of other venous thrombosis and embolism; Z86.19 Personal history of other infectious and parasitic diseases; E66.9 Obesity, unspecified; Z87.01 Personal history of pneumonia (recurrent); Z79.899 Other long term (current) drug therapy; H61.23 Impacted cerumen, bilateral; I44.0 Atrioventricular block, first degree
CPT/HCPCS: 80048; 85025; 93005; 99283

== ENCOUNTER 2022-02-16 21:07 | Emergency (ER) | payer MEDICAID, SELFPAY ==
[2022-02-16 21:08] VITALS: BP 192/103; PULSE 92; RESP 22; TEMP 36.8; O2SAT 92; BMI 44.4
[2022-02-16 21:30] VITALS: BP 164/92; PULSE 88; RESP 20; O2SAT 95
--- NOTE | 2022-02-16 21:57 | EDS_ITS ---
HPI History of Present Illness Chief Complaint: Dizziness Narrative Narrative: Patient presents with vertigo. He has a history of vertigo for the past year its been intermittent and it sounds to be positional, he has seen ENT and has an MRI scheduled in a week and a half. He has no vision changes, the vertigo seems to be positional. He is denying any gait abnormality. He is complaining of significant nausea and sometimes vomiting with these episodes of vertigo. [facility] Medical History (Updated 02/16/22 @ 22:[address] Sawyer Mays MD) Acute on chronic systolic (congestive) heart failure Cardiomyopathy in diseases classified elsewhere Community acquired pneumonia DVT, popliteal, acute LV (left ventricular) mural thrombus Non-rheumatic tricuspid valve insufficiency Obesity Pulmonary embolism with infarction (09/13/18) Secondary pulmonary arterial hypertension Sepsis Home Medications acetaminophen 650 mg PO Q6H PRN PRN tab 09/23/18 [Rx Last Taken Unknown] albuterol sulfate 2.5 mg INHALATION Q2H PRN PRN vial.neb. 09/23/18 [Rx Last Taken Unknown] carvedilol 6.25 mg PO BID tab 09/23/18 [Rx Last Taken Unknown] furosemide 40 mg PO BID@1000,1800 tab 09/23/18 [Rx Last Taken Unknown] guaifenesin 1,200 mg PO BID PRN tab 09/23/18 [Rx Last Taken Unknown] potassium chloride 20 meq PO BIDCM tab 09/23/18 [Rx Last Taken Unknown] carbamide peroxide [Debrox] 5 drp EACH EAR DAILY 7 Days ml 12/05/21 [Rx Last Taken Unknown] apixaban [Eliquis] 5 mg PO BID 02/16/22 [History Last Taken Unknown] meclizine 25 mg PO TID #20 tab 02/16/22 [Rx Last Taken Unknown] ondansetron 4 mg PO Q8H #10 tab 02/16/22 [Rx Last Taken Unknown] Allergy/AdvReac Type Severity Reaction Status Date / Time lisinopril Allergy Angioedema Verified 02/16/22 21:08 Family History Mother Diabetes Father Lung disease Surgical History No significant past surgical history Social History (Updated 12/30/18 @ 09:[address] Evelio Lucio, DO) Smoking Status: Former smoker quit date: 09/28/97 pack-years: 24 alcohol intake: never substance use type: does not use ROS ROS ED ROS Narrative Past medical history: Reviewed Medications: Reviewed Social history: Noncontributory Review of systems: All systems negative except as indicated General: No fever Eyes: No visual changes ENT: No upper airway congestion, normal voice Neck: No neck pain Cardiovascular: No chest pain Respiratory: No shortness of breath or cough Gastrointestinal: No abdominal pain, nausea vomiting or diarrhea Genitourinary: No dysuria Musculoskeletal: Denies myalgias no difficulty with ambulation Skin: No rash Neurological: Vertigo as in HPI Psych: No recent behavioral changes Hematologic: No easy bleeding or easy bruising EXAM Physical Exam Narrative Exam Narrative: Physical exam General: Well nourished, Well developed, No Acute Distress Head: Normocephalic, Atraumatic Eyes: Conjunctiva not pale. He has rightward saccade. ENT: Moist mucous membranes Neck: Supple, Nontender, No lymphadenopathy Cardiovascular: Regular rate, Regular rhythm Respiratory: No distress, CTA bilaterally Abdomen: Soft, Nontender, Nondistended Back: Nontender, Normal Inspection. Negative for: CVA tenderness Extremities: Nontender, No edema Skin: Normal color, No rash Neurological: Alert, Normal Strength, Normal Sensation normal cerebellar. Normal Romberg. Normal gait. Psychological: Normal affect Const Vital Signs: 02/16/22 21:08 02/16/22 21:30 02/16/22 21:32 Temperature 98.2 F Temperature Source Temporal Pulse Rate 92 88 Respiratory Rate 22 H 20 H Respiratory Effort Normal Non-Labored Respiratory Pattern Normal Blood Pressure 192/103 H 164/92 H Blood Pressure Mean 132 116 Pulse Ox 92 95 Oxygen Delivery Method Room Air Room Air MDM MDM MDM Narrative Medical decision making narrative: Patient likely has peripheral vertigo. He does have signs and symptoms of this. He is scheduled for an MRI. I will check a CT angiogram to make sure he does not have large vessel occlusion. Otherwise will be treated symptomatically. Discharge Plan Triage Chief Complaint: Dizziness ED Provider: Sawyer Mays Dx/Rx/DC Orders Clinical Impression: Vertigo, Nausea Instructions: ED Vertigo, Unspecified Prescriptions: New ondansetron 4 mg tablet,disintegrating 4 mg PO Q8H Qty: 10 RF: 0 meclizine 25 mg tablet 25 mg PO TID Qty: 20 RF: 0 No Action furosemide 40 MG tablet 40 mg PO BID@1000,1800 RF: 0 acetaminophen 325 MG tablet 650 mg PO Q6H PRN PRN (Reason: Pain) RF: 0 carvedilol 6.25 MG tablet 6.25 mg PO BID RF: 0 albuterol sulfate 2.5 MG/3 ML solution for nebulization 2.5 mg Inhalation Q2H PRN PRN (Reason: SHORTNESS OF BREATH) RF: 0 potassium chloride 20 MEQ tablet 20 meq PO BIDCM RF: 0 guaifenesin 1,200 MG tablet 1,200 mg PO BID PRN (Reason: Cough) RF: 0 Debrox 6.5 % drops 5 drp EACH EAR DAILY 7 Days RF: 0 Eliquis 5 MG tablet 5 mg PO BID RF: 0 Primary Care Provider: Care Physician,No Primary Referrals: Care Physician,No Primary [Primary Care Provider] - Disposition Disposition: Home, Self Care
[2022-02-16 22:14] VITALS: BP 150/70; PULSE 84; RESP 15; O2SAT 95
[2022-02-16] MEDS: Meclizine HCl 25 MG Tablet PO (22:29)
[2022-02-16] MEDS: Ondansetron ODT 4 MG Tablet PO (22:29)
[2022-02-16 22:31] VITALS: BP 150/70; PULSE 84; RESP 15; O2SAT 95
[2022-02-16 22:33] VITALS: BP 149/87; PULSE 78; RESP 18; O2SAT 98
--- NOTE | 2022-02-16 22:34 | ED.RN ---
PT REFUSING TO HAVE BLOOD WORK IV OR CT DONE. PT REPORTS HE RECENTLY HAD SCANS DONE AT [facility] AND THEY WERE NEGATIVE. DR BRAUN MADE AWARE. AMA FORMS OBTAINED PER DR BRAUN'S REQUEST. DR BRAUN SPOKE WITH PATIENT @ BEDSIDE
== END 2022-02-16 22:33 | disposition left against medical advice (07) ==
PROVIDERS: Emergency Provider Emergency Medicine; Visit Provider Emergency Medicine
DX: R42 Dizziness and giddiness (principal); I43 Cardiomyopathy in diseases classified elsewhere; I27.21 Secondary pulmonary arterial hypertension; Z68.41 Body mass index [BMI] 40.0-44.9, adult; Z87.891 Personal history of nicotine dependence; I10 Essential (primary) hypertension; Z86.711 Personal history of pulmonary embolism; E66.9 Obesity, unspecified; Z79.899 Other long term (current) drug therapy; Z79.01 Long term (current) use of anticoagulants; Z53.29 Procedure and treatment not carried out because of patient's decision for other reasons
CPT/HCPCS: 99285

== ENCOUNTER 2022-06-22 07:01 | Emergency (ER) | payer MEDICAID, SELFPAY ==
[2022-06-22 07:01] VITALS: BP 158/106; PULSE 99; RESP 25; TEMP 36.2; O2SAT 95; BMI 49.9
--- NOTE | 2022-06-22 07:16 | RAD_ITS ---
EXAM: XR CHEST, 1 VIEW CLINICAL INDICATION: chest pain TECHNIQUE: Frontal view of the chest. This report was created using [employer] report generation technology. COMPARISON: XR Chest dated 09/12/2018 FINDINGS: LUNGS AND PLEURAL SPACES: Normal. No consolidation or edema. No pneumothorax. No effusion. HEART: Stable mild cardiomegaly. MEDIASTINUM: No mediastinal or hilar mass. BONES/JOINTS: No acute abnormality. SOFT TISSUES: Normal. RAD/Chest 1 View (Portable) IMPRESSION: No acute pulmonary abnormality. Stable mild cardiomegaly. Electronically Signed: Robert Mullins MD at 8:09 EDT ,
--- NOTE | 2022-06-22 07:16 | EKG12_ITS ---
Test Reason : CHEST PRESSURE Blood Pressure : / mmHG Vent. Rate : 096 BPM Atrial Rate : 096 BPM P-R Int : 196 ms QRS Dur : 098 ms QT Int : 372 ms P-R-T Axes : 068 045 094 degrees QTc Int : 469 ms Sinus rhythm with Premature supraventricular complexes Nonspecific T wave abnormality Prolonged QT Abnormal ECG Confirmed by JOHNATHON BURKS, ZIA ([id number]), editorial specialist JESUS BABIN ([id number]) on 06/24/2022 12:59:39 PM Referred By: JOAN Confirmed By:ZIA DIEGO MD
--- NOTE | 2022-06-22 07:17 | EX.ED.DYSGE1 ---
HPI History of Present Illness Chief Complaint: Chest Pain Detail of Chief Complaint: Chest/upper abdomen discomfort Informant: patient Onset/Context/Timing Current Severity: 03/07 Narrative Narrative: Patient presents the emergency department complaint of chest and upper abdomen discomfort is around 3:30 AM. Patient states he went to bed feeling fine. Patient states that he did eat some pepperoni prior to going to bed. Patient describes a dull ache/pressure in the center of his chest and into the chest area. He denies any radiation of the pain. He denies shortness of breath. Is had no nausea or vomiting. He denies blood in his stool or black tarry stool. He denies diarrhea. Last bowel movement was last night. He is not had discomfort like this before. Patient tells me he recently had a stress test and wore a Holter monitor and was told he had some extra beats on the Holter monitor. Patient denies recent illness. Patient tells me that he has history of CHF but because of which is unknown. Patient tells me he had a heart catheterization in 2019 and was told he had clean coronary arteries. Patient had recent stress test at [facility] but he has not heard the results of this. Prior similar symptoms: No PFSH [facility] Medical History (Updated 06/22/22 @ 10:[address] Melanie Lenz, DO) Acute on chronic systolic (congestive) heart failure Cardiomyopathy in diseases classified elsewhere Community acquired pneumonia DVT, popliteal, acute LV (left ventricular) mural thrombus Non-rheumatic tricuspid valve insufficiency Obesity Pulmonary embolism with infarction (09/13/18) Secondary pulmonary arterial hypertension Sepsis Home Medications acetaminophen 325 mg tablet 650 mg PO Q6H PRN PRN Pain 09/23/18 [Rx Last Taken Unknown] albuterol sulfate 2.5 mg/3 mL (0.083 %) solution for nebulization 2.5 mg (3 mL) inhalation Q2H PRN PRN SHORTNESS OF BREATH 09/23/18 [Rx Last Taken Unknown] carvedilol 6.25 mg tablet 6.25 mg PO BID 09/23/18 [Rx Last Taken Unknown] furosemide 40 mg tablet 40 mg PO BID@1000,1800 09/23/18 [Rx Last Taken Unknown] guaifenesin 1,200 mg tablet, extended release 12 hr 1,200 mg PO BID PRN Cough 09/23/18 [Rx Last Taken Unknown] potassium chloride 20 mEq tablet,extended release(part/cryst) 20 meq PO BIDCM 09/23/18 [Rx Last Taken Unknown] carbamide peroxide 6.5 % ear drops (Debrox) 5 drp EACH EAR DAILY 7 days 12/05/21 [Rx Last Taken Unknown] apixaban 5 mg tablet (Eliquis) 5 mg PO BID 02/16/22 [History Last Taken Unknown] meclizine 25 mg tablet 25 mg PO TID #20 tabs 02/16/22 [Rx Last Taken Unknown] ondansetron 4 mg disintegrating tablet 4 mg PO Q8H #10 tabs 02/16/22 [Rx Last Taken Unknown] Allergy/AdvReac Type Severity Reaction Status Date / Time lisinopril Allergy Angioedema Verified 06/22/22 07:07 Family History Mother Diabetes Father Lung disease Surgical History No significant past surgical history Social History (Updated 12/30/18 @ 09:[address] Evelio Lucio, DO) Smoking Status: Former smoker quit date: 09/28/97 pack-years: 24 alcohol intake: never substance use type: does not use ROS ROS ED Review of Systems ROS Unobtainable: other Constitutional Constitutional ED: Reports lethargy; Denies chills, fever(s), sweats or weight loss Eyes Eyes: Denies blurry vision, change in vision or diplopia ENT ENT ED: Denies rhinorrhea or sore throat Cardiovascular Cardiovascular: Reports chest pain; Denies orthopnea or racing heartbeat Respiratory/Chest Respiratory/Chest: Denies cough, dyspnea, dyspnea on exertion, orthopnea or sputum Gastrointestinal Gastrointestinal: Reports abdominal pain; Denies diarrhea, nausea or vomiting Genitourinary Genitourinary ED: Denies dysuria, hematuria or urinary frequency Musculoskeletal Musculoskeletal: Denies arthralgias, back pain, myalgias or neck pain Integumentary Denies abscess, Abrasions or rash Neurologic Neurologic: Denies headache(s) or weakness Psychiatric Psychiatric: Denies anxiety, depression or suicidal thoughts Endocrine Endocrinology: Denies polydipsia, polyphagia or polyuria Hematologic/Lymphatic Hematologic/Lymphatic: Denies easy bleeding, easy bruising or lymphadenopathy Allergic/Immunologic Allergic/Immunologic ED: Denies mouth swelling, tongue swelling or urticaria EXAM Physical Exam Const Vital Signs: 06/22/22 07:01 06/22/22 07:04 06/22/22 07:33 Temperature 97.2 F L Temperature Source Temporal Pulse Rate 99 Respiratory Rate 25 H Respiratory Effort Short of Breath Blood Pressure 158/106 H Blood Pressure Mean 123 Pulse Ox 95 Oxygen Delivery Method Room Air Room Air 06/22/22 07:59 06/22/22 09:00 Temperature Temperature Source Pulse Rate 92 82 Respiratory Rate 17 22 H Respiratory Effort Blood Pressure 159/80 H 162/84 H Blood Pressure Mean 106 110 Pulse Ox 94 96 Oxygen Delivery Method Room Air Room Air Positive well nourished and well developed General Appearance ED: well developed and NAD HEENT Reports TM's clear and moist mucous membranes normocephalic and atraumatic; Negative for trauma or tenderness Tympanic Membrane ED: Yes TM's clear Eyes PERRL and EOMs intact bilaterally General Eye ED: Negative for pale conjunctiva or scleral icterus Neck no lymphadenopathy, supple and no JVD General: Negative for tenderness Chest Wall inspection of chest normal and palpation of chest normal Chest: Negative for tenderness Resp normal respiratory effort and clear to auscultation bilaterally Effort and Inspection: Negative for respiratory distress or pain with movement Auscultation: Negative for rhonchi, wheezes or diminished lung sounds Cardio regular rate, regular rhythm, S1 normal heart sound, S2 normal heart sound and no murmurs Peripheral Pulses: pulses 2+ throughout GI normal to inspection, nondistended, normoactive bowel sounds, soft to palpation, non-distended and no masses GI Narrative: Patient has some tenderness palpation over the epigastric region with some mild guarding. There is no rebound, rigidity, or peritoneal signs. Palpation of the upper abdomen somewhat reproduces pain. Back/Spine no CVA tenderness and no thoracic nor lumbar tenderness Extremity normal to inspection General Extremety ED: Negative for edema General Extremity: Negative for edema Neuro oriented x3, CN's II-XII intact bilaterally, no sensory deficits noted and gait normal Sensorium / Orientation: awake, alert, oriented to person, oriented to place and oriented to time Motor Exam: strength 5/5 throughout and strength abnormal Psych mental status grossly normal Skin no rashes or lesions noted and no wounds MDM MDM MDM Narrative Medical decision making narrative: IV line established on arrival. Patient was ordered a GI cocktail. Patient before receiving the GI cocktail started to have resolution of his discomfort. His EKG showed a sinus rhythm with a rate of [address] changes. Lab work-up was essentially unremarkable other than he does have chronically elevated LFTs which are unchanged from prior. Patient also with normal troponin and normal 2-hour delta troponin. His lipase was normal. I do a CT scan of the abdomen pelvis that was read by radiology as right renal mass 2.4 cm unclear if this is solid versus complex cyst and recommended further evaluation. Patient also had some gallstones in his gallbladder without evidence of cholecystitis. On repeat exam he is pain-free and feels well. I advised him to follow-up with his primary care physician regarding the renal mass for further evaluation. Patient understands and will follow-up. Patient advised to avoid spicy and greasy foods. I do not feel he is having acute coronary syndrome. Patient advised to return if chest pain, shortness of breath, or condition should worsen anyway. Lab Data Labs: Laboratory Results - last 24 hr 06/22/22 06/22/22 06/22/22 07:10 07:10 09:25 WBC 10.6 RBC 4.49 L Hgb 12.4 L Hct 38.9 L MCV 86.6 MCH 27.6 MCHC 31.9 L RDW Std Deviation 43.9 RDW Coeff of Louie 13.8 Plt Count 279 MPV 9.1 Immature Gran % (Auto) 0.900 Neut % (Auto) 68.5 Lymph % (Auto) 19.3 [place] % (Auto) 7.7 Eos % (Auto) 3.0 Baso % (Auto) 0.6 Absolute Neuts (auto) 7.2 Absolute Lymphs (auto) 2.04 Nucleated RBC % 0 Sodium 136 Potassium 3.8 Chloride 103 Carbon Dioxide 26.0 Anion Gap 7 BUN 21 H Creatinine 1.13 Estim Creat Clear Calc 82.37 Est GFR (MDRD) Af Amer 88 Est GFR (MDRD) Non-Af 73 BUN/Creatinine Ratio 18.6 Glucose 192 H Calcium 8.8 Total Bilirubin 0.40 AST 44 H ALT 74 H Alkaline Phosphatase 149 H Troponin I High Sens 17 18 Total Protein 8.1 Albumin 3.5 Globulin 4.6 H Albumin/Globulin Ratio 0.8 L Lipase 193 Radiography Diagnostic Testing: Clinical Impression(s) from Imaging Studies Chest X-Ray 06/22/22 07:16 IMPRESSION: No acute pulmonary abnormality. Stable mild cardiomegaly. Electronically Signed: Robert Mullins MD at 8:09 EDT , Abdomen/Pelvis CT 06/22/22 08:26 IMPRESSION: 1. Severe hepatic steatosis. 2. Cholelithiasis. 3. 2.4 cm indeterminate right renal mass. Follow-up renal ultrasound recommended. 4. Normal appendix. Electronically Signed: Robert Mullins MD at 8:59 EDT , EKG Initial EKG: Attestation: I personally reviewed and interpreted this EKG as follows: Comments: Sinus rhythm with a ventricular rate of [address] changes Discharge Plan Triage Chief Complaint: Chest Pain ED Provider: Melanie Lenz Dx/Rx/DC Orders Clinical Impression: Chest pain, Abdominal pain of unknown cause, Renal mass, right, Cholelithiasis Instructions: ED Chest Pain, Uncertain Cause, ED Abdominal Pain Unkn Cause Male... Prescriptions: No Action furosemide 40 MG tablet 40 mg PO BID@1000,1800 0RF acetaminophen 325 MG tablet 650 mg PO Q6H PRN PRN (Reason: Pain) 0RF carvedilol 6.25 MG tablet 6.25 mg PO BID 0RF albuterol sulfate 2.5 MG/3 ML solution for nebulization 2.5 mg Inhalation Q2H PRN PRN (Reason: SHORTNESS OF BREATH) 0RF potassium chloride 20 MEQ tablet 20 meq PO BIDCM 0RF guaifenesin 1,200 MG tablet 1,200 mg PO BID PRN (Reason: Cough) 0RF Debrox 6.5 % drops 5 drp EACH EAR DAILY 7 Days 0RF Eliquis 5 MG tablet 5 mg PO BID ondansetron 4 mg tablet,disintegrating 4 mg PO Q8H Qty: 10 0RF meclizine 25 mg tablet 25 mg PO TID Qty: 20 0RF Primary Care Provider: Care Physician,No Primary Referrals: Care Physician,No Primary [Primary Care Provider] - Activity Restrictions/Additional Instructions: Follow-up with your family doctor regarding the right renal mass that will need further evaluation. Disposition Disposition: Home, Self Care
[2022-06-22 07:26] LABS: Absolute Lymphocyte Count 2.04 X10^3/uL (0.83-4.51); Absolute Neutrophil Count 7.2 X10^3/uL (2.0-7.7); Basophil# 0.06 X10^3/uL; Basophil% 0.6 % (0-1); Eosinophil# 0.32 X10^3/uL; Hematocrit 38.9 % (40-54); Hemoglobin 12.4 g/dL (13.0-16.5); Lymphocyte # 2.04 X10^3/ul (0.83-4.51); Lymphocyte % 19.3 % (19-41); Mean Corp Hgb Conc 31.9 g/dL (32-36); Mean Corpuscular Hgb 27.6 pg (27.0-32.0); Mean Corpuscular Volume 86.6 fL (80-94); Mean Platelet Vol. 9.1 fl (6.2-12.0); Monocyte# 0.81 X10^3/uL; Monocyte% 7.7 % (0-10); NRBC Flagged by Analyzer 0 % (0-5); Neutrophil # 7.23 X10^3/uL (2.7-7.7); Neutrophil % 68.5 % (47-70); Platelet Count 279 K/mm3 (150-450); RBC Distribution Width CV 13.8 % (11.6-14.6); RBC Distribution Width SD 43.9 fl (35.1-43.9); Red Blood Count 4.49 M/mm3 (4.6-6.2); White Blood Count 10.6 K/mm3 (4.4-11.0)
[2022-06-22 07:45] LABS: ALB/GLOB Ratio 0.8 RATIO (0.9-2.4); AST(SGOT) 44 U/L (15-37); Alanine Aminotransfer ALT/SGPT 74 U/L (16-61); Albumin, Serum 3.5 g/dL (3.2-5.0); Alkaline Phosphatase 149 U/L (45-117); Anion Gap 7 (5-15); BUN 21 mg/dL (7-18); BUN/Creat Ratio 18.6 RATIO (10-20); Calcium,Total 8.8 mg/dL (8.5-10.1); Chloride 103 mmol/L (98-107); Creatinine, Serum 1.13 mg/dL (0.70-1.30); EST Glomerular Filtration Rate 73 mL/min (>60); Est Glom Filt Rate - Afr Amer 88 mL/min (>60); Estimated Creatinine Clearance 82.37 ml/min; Globulin 4.6 g/dL (2.2-4.2); Glucose 192 mg/dL (74-106); Lipase 193 U/L (73-393); Potassium 3.8 mmol/L (3.5-5.1); Protein, Total 8.1 g/dL (6.4-8.2); Sodium Level 136 mmol/L (136-145); Troponin-I HS (w/2H Reflex) 17 pg/mL (3.0-78.0)
[2022-06-22] MEDS: 0.9% Normal Saline 1,000 ML 150 ML IV (07:58)
[2022-06-22 07:59] VITALS: BP 159/80; PULSE 92; RESP 17; O2SAT 94
--- NOTE | 2022-06-22 08:26 | CT_ITS ---
EXAM: CT ABDOMEN AND PELVIS WITH INTRAVENOUS CONTRAST CLINICAL INDICATION: abdominal pain TECHNIQUE: Helically acquired images were obtained of the abdomen and pelvis with intravenous contrast. This CT exam was performed using one or more of the following dose reduction techniques: automated exposure control, adjustment of the mA and/or kV according to patient size, and/or use of iterative reconstruction technique. This report was created using [employer] report generation technology. CONTRAST: IV 100mL Isovue-300 COMPARISON: CT Abdomen Pelvis dated 09/13/2018 FINDINGS: LOWER THORAX: Residual scarring noted within the right lower lobe. ABDOMEN: LIVER: There is marked steatosis of the liver. GALLBLADDER AND BILE DUCTS: Small stones are present within the gallbladder. No gallbladder distention or wall edema. No intra- or extrahepatic biliary ductal dilation. PANCREAS: Normal. No focal cystic or solid mass. SPLEEN: Normal. Normal size without focal cystic or solid mass. ADRENALS: Normal. No nodules. KIDNEYS AND URETERS: 2.4 cm low-density right renal mass may represent complex cyst or solid lesion. Recommend follow-up renal ultrasound. No hydronephrosis. STOMACH AND BOWEL: Normal. No bowel distention. No focal inflammatory change. PELVIS: APPENDIX: Appendix is visualized and normal in appearance. BLADDER: Normal. REPRODUCTIVE: Unremarkable as visualized. No mass. ABDOMEN and PELVIS: INTRAPERITONEAL SPACE: Normal. No ascites or other fluid collection. No free air. BONES/JOINTS: Normal. No suspicious lytic or blastic abnormality. SOFT TISSUES: Normal. No discrete abdominal or pelvic wall hernia. VASCULATURE: Normal. Abdominal aorta is non-dilated. LYMPH NODES: Normal. No enlarged lymph nodes. CT/Abdomen/Pelvis W IV Cont ONLY IMPRESSION: 1. Severe hepatic steatosis. 2. Cholelithiasis. 3. 2.4 cm indeterminate right renal mass. Follow-up renal ultrasound recommended. 4. Normal appendix. Electronically Signed: Robert Mullins MD at 8:59 EDT ,
[2022-06-22 09:00] VITALS: BP 162/84; PULSE 82; RESP 22; O2SAT 96
[2022-06-22 09:21] LABS: Reflex Troponin-HS? (from REC) Y
[2022-06-22 09:51] LABS: Troponin-I HS 18 pg/mL (3.0-78.0)
[2022-06-22 10:29] VITALS: BP 177/73; PULSE 77; RESP 14; O2SAT 95
== END 2022-06-22 10:30 | disposition home or self-care (01) ==
PROVIDERS: Emergency Provider Emergency Medicine; Visit Provider Emergency Medicine
DX: K80.20 Calculus of gallbladder without cholecystitis without obstruction (principal); I50.22 Chronic systolic (congestive) heart failure; N28.89 Other specified disorders of kidney and ureter; R07.9 Chest pain, unspecified; Z87.891 Personal history of nicotine dependence
CPT/HCPCS: 71045; 74177; 80053; 83690; 84484; 85025; 93005; 96360; 96361; 99284; Q9967; A4216